=== PATIENT | male | born 1965 | race African-American/Black ===

== ENCOUNTER 2020-07-03 13:16 | Inpatient (IN) | payer MEDICARE, MEDICAID, SELFPAY ==
[2020-07-03] VITALS (11 sets, daily range): BP systolic 144–246; BP diastolic 77–140; PULSE 70–102; RESP 16–18; TEMP 36.7; O2SAT 95–99; BMI 30.8
--- NOTE | ~2020-07-03 | XR_ITS ---
EXAMINATION: PORTABLE CHEST 1 VIEW CLINICAL INFORMATION: edema . COMPARISON: 04/10/2016. TECHNIQUE: Portable frontal view of the chest was obtained. FINDINGS: The lungs are well expanded. No focal infiltrate, effusion, edema, or pneumothorax. Cardiac and mediastinal silhouettes are within normal limits for technique. No acute bony abnormality seen. XR/XR chest 1V IMPRESSION: No evidence of acute disease.
--- NOTE | ~2020-07-03 | CT_ITS ---
EXAMINATION: CT HEAD WITHOUT CONTRAST CLINICAL INFORMATION: Hypertensive urgency COMPARISON: None TECHNIQUE: Contiguous axial imaging was performed from the skull base to vertex without intravenous administration of contrast. This CT examination was performed using dose optimization techniques as appropriate, variously including the following: *Automated exposure control *Adjustment of mA and/or kV according to patient size (this includes techniques or standardized protocols for targeted exams where dose is matched to indication/reason for exam; i.e. extremities or head) *Use of iterative reconstruction technique DLP: 876 mGy-cm FINDINGS: There is no evidence of acute intracranial hemorrhage or territorial infarction. No abnormal mass effect or midline shift is seen. Winter to white matter differentiation is well preserved. No extra-axial fluid collections are identified. The ventricles are normal in size. There is no abnormal attenuation within the brain parenchyma. The osseous structures and soft tissues are normal. The mastoid air cells and visualized portions of the paranasal sinuses are well aerated. There are innumerable punctate subcutaneous high attenuation densities questionable for calcifications just deep to the skin. CT/CT head/brain wo con IMPRESSION: No acute intracranial pathology.
--- NOTE | ~2020-07-03 | US_ITS ---
EXAMINATION: DOPPLER VENOUS ULTRASOUND EXTREMITY, BILATERAL CLINICAL INFORMATION: Lower extremity edema bilaterally. COMPARISON: None. TECHNIQUE: Grayscale, Doppler and spectral analysis of each lower extremity was performed. FINDINGS: There is no evidence for a deep venous thrombosis within the visualized lower extremity veins. There is normal flow, compression and augmentation. ADDITIONAL FINDINGS: No Dominguez's cysts are identified. US/US venous duplex LE BI IMPRESSION: Unremarkable examination. Specifically, no evidence for DVT within either lower extremity.
[2020-07-03 14:51] LABS: MANUAL DIFF FLAG NO
[2020-07-03 14:52] LABS: Basophils Percent Auto 0.1 % (0-2); Eosinophils Absolute Auto 0.1 X10*3/uL (0.0-0.4); Eosinophils Percent Auto 0.7 % (0-4); Hematocrit 38.6 % (42-52); Hemoglobin 11.9 g/dl (14.0-18.0); Imm Gran Abs Auto 0.02 X10*3/uL (0.00-0.03); Imm Gran Pct Auto 0.3 % (0.0-0.4); Lymphocytes Absolute Auto 1.2 X10*3/uL (1.2-4.9); Lymphocytes Percent Auto 16.3 % (20-40); Mean Corpuscular HGB Conc 30.8 g/dl (31.0-36.0); Mean Corpuscular Volume 87.7 fL (80-98); Mean Platelet Volume 10.2 fL (9.4-12.4); Monocytes Absolute Auto 0.4 X10*3/uL (0.1-1.2); Monocytes Percent Auto 5.7 % (2-11); Neutrophils Absolute Auto 5.8 X10*3/uL (2.0-8.3); Neutrophils Percent Auto 76.9 % (45-73); Platelet Count 257 X10*3/uL (160-400); Red Cell Distribution Width 13.6 % (11.0-16.0); White Blood Count 7.5 X10*3/uL (4.8-10.8)
[2020-07-03 15:20] LABS: Anion Gap 13 (12-20); Blood Urea Nitrogen 19 mg/dL (9-16); Calcium 9.5 mg/dL (8.4-10.2); Carbon Dioxide 31 mmol/L (22-29); Chloride 98 mmol/L (96-108); Creatinine Clr Calc Pharmacy 80.5; Estimated Glomerular Filt Rate > 60; Potassium 4.5 mmol/L (3.3-5.1); Sodium 137 mmol/L (135-145)
[2020-07-03 15:26] LABS: Glucose Random 374 mg/dL (60-115)
--- NOTE | 2020-07-03 17:22 | ECG_ITS ---
Test Reason : LEG SWELLING Blood Pressure : / mmHG Vent. Rate : 085 BPM Atrial Rate : 085 BPM P-R Int : 136 ms QRS Dur : 098 ms QT Int : 364 ms P-R-T Axes : 025 084 083 degrees QTc Int : 433 ms Normal sinus rhythm Normal ECG When compared with ECG of 31-MAY-2018 20:26, No significant change was found Referred By: Sofi Amor Electronically Signed By:ANDREW GIRALDO
[2020-07-03] MEDS: Insulin Lispro 100 UNIT/ML 3 ML VIAL 10 UNIT SUBCUT (17:43)
--- NOTE | 2020-07-03 17:44 | ED_ITS ---
HPI - General Adult General Chief complaint: Extremity Problem Stated complaint: MULTI COMPLANTS Time Seen by Provider: 07/03/20 15:27 Source: patient Mode of arrival: ambulatory Limitations: language barrier History of Present Illness HPI narrative: 54-year-old male with past medical history of hypertension, type 2 diabetes insulin dependent, hyperlipidemia, alcohol dependence, heroin dependence, and cocaine dependence. He presents today because a bilateral lower extremity swelling, states that he has not been on his medications for at least 6 months and has not treated it his blood sugar since February. He is a vague historian, his daughter is at bedside and states that he is a daily drinker. He does admit to using cocaine and heroin, and reports drinking only 1 beer a day. Daughter states that on the way here she had to take the alcohol away from him because she did not want him to present drunk to the emergency department. Onset (ago): unknown Location: lower extremity Severity: moderate Quality: burning and aching Pain Consistency: constant Relieving factors: none Exacerbating factors: movement Associated symptoms: denies other symptoms Related Data Home Medications Medication Instructions Recorded Confirmed No Known Home Meds 07/03/20 07/03/20 Allergies Allergy/AdvReac Type Severity Reaction Status Date / Time No Known Allergies Allergy Unverified 07/03/20 23:00 Review of Systems Review of Systems: Constitutional: No Fever, No Chills ENT/Mouth: No sore throat, No Rhinorrhea Eyes: No Eye Pain, No Swelling, No Redness Cardiovascular: Positive bilateral lower extremity edema, No Chest Pain, No SOB Respiratory: No Cough, No Sputum Gastrointestinal: No Nausea, No Vomiting, No Diarrhea, No abdominal Pain Genitourinary: No Dysuria, No Hematuria Musculoskeletal: No joint pain, No Myalgias, No Joint Swelling Skin: No Skin Lesions, No rash Neuro: No Weakness, No Numbness, No Loss of Consciousness, No Dizziness, No Headache Psych: Positive alcohol, cocaine and heroin abuse, No Anxiety, No Depression, No SI/HI/AH/VH Heme/Lymph: No Bruising, No Bleeding,No Lymphadenopathy Endocrine: No Polyuria, No Polydipsia Yes all other systems are reviewed and are negative PMFSH Past Medical History Attestation statement: The following information was validated with the patient. Source: old records reviewed Social History Social History Alcohol intake: unknown Smoking Status: Unknown if ever smoked Use of substances other than those prescribed or required for medical reasons: Unknown Advance Directives: No Advance Directives Information Provided: Yes Physical Exam Vital Signs: Vital Signs: Last Vital Signs Temp 98.1 F 07/03/20 14:25 Pulse 87 07/04/20 01:00 Resp 18 07/04/20 01:00 BP 160/76 H 07/04/20 01:00 Pulse Ox 98 07/04/20 01:00 Body Mass Index 30.8 Appearance: Alert. Oriented X3. No acute distress. Eyes: Pupils equal, round and reactive to light. EOMI, sclera mildly icteric ENT: Pharynx normal. Moist mucous membranes, tongue midline, no tracheal deviation Neck: Normal inspection. Neck supple. CVS: Normal heart rate and rhythm. Pulses equal to all extremities Respiratory: No respiratory distress. Lung sounds clear to auscultation all lobes Abdomen: Soft and nontender. Ventral hernia noted Skin: Skin warm and dry. Normal skin color. Normal skin turgor. Extremities: +3 pitting edema to the midthigh, no wounds or lesions noted to the feet, moves all extremities against resistance, strength 5/5. Neuro: No motor deficit. No sensory deficit. Cranial nerves 2-12 intact. Course Course Course Narrative: 54-year-old male with alcohol dependence, cocaine and heroin dependence, hypertension, diabetes type 2 insulin-dependent has been noncompliant with his medications for approximately 6 months. Presents with bilateral lower extremity edema. Will rule out ACS, CHF. 6:00 p.m. patient given 40 mg of IV Lasix. 6:40 p.m. blood pressure elevated 246/140, blood pressure discussed with Dr. Franks, multiple concerns regarding ETOH withdrawal versus cocaine withdrawal versus medication noncompliance. Plan is for amlodipine 5 mg, and have an inch of nitropaste. 9:30 p.m. 2nd troponin pending. 10:30 p.m. patient noted diaphoretic, highly suspicious for EtOH withdrawal. DA S negative, ETOH less than 10 even the patient stated that he has heroin, cocaine and alcohol recently.. Phenobarb protocol. 11:00 p.m. discussion with hospitalist regarding plan of care to admit for EtOH withdrawal. Medical Decision Making Lab Data Result diagrams: 07/03/20 14:44 07/03/20 14:44 Labs: Lab Results 07/03/20 07/03/20 07/03/20 Range/Units 14:44 14:44 14:44 WBC 7.5 (4.8-10.8) X10*3/uL RBC 4.40 L (4.60-5.80) X10*6/uL Hgb 11.9 L (14.0-18.0) g/dl Hct 38.6 L (42-52) % MCV 87.7 (80-98) fL MCH 27.0 (27.0-33.0) pg MCHC 30.8 L (31.0-36.0) g/dl RDW 13.6 (11.0-16.0) % Plt Count 257 (160-400) X10*3/uL MPV 10.2 (9.4-12.4) fL Immature Gran % (Auto) 0.3 (0.0-0.4) % Neut % (Auto) 76.9 H (45-73) % Lymph % (Auto) 16.3 L (20-40) % [place] % (Auto) 5.7 (2-11) % Eos % (Auto) 0.7 (0-4) % Baso % (Auto) 0.1 (0-2) % Lymph # (Auto) 1.2 (1.2-4.9) X10*3/uL [place] # (Auto) 0.4 (0.1-1.2) X10*3/uL Eos # (Auto) 0.1 (0.0-0.4) X10*3/uL Baso # (Auto) 0.0 (0.0-0.2) X10*3/uL Abs Immat Gran (auto) 0.02 (0.00-0.03) X10*3/uL Absolute Neuts (auto) 5.8 (2.0-8.3) X10*3/uL Absolute Nucleated RBC 0.000 (0.0-0.012) X10*3/uL Nucleated RBC % (auto) 0.0 (0.0-0.2) /100WBC Hold Purple Top SEE NOTE PT (10.8-13.0) SEC INR (0.9-1.1) APTT (24.1-38.0) SEC D-Dimer Hold Blue Top Sodium 137 (135-145) mmol/L Potassium 4.5 (3.3-5.1) mmol/L Chloride 98 (96-108) mmol/L Carbon Dioxide 31 H (22-29) mmol/L Anion Gap 13 (12-20) BUN 19 H (9-16) mg/dL Creatinine 1.20 (0.5-1.4) mg/dL Estim Creat Clear Calc 80.5 Estimated GFR > 60 POC Glucose (60-115) mg/dL Random Glucose 374 H* (60-115) mg/dL Calcium 9.5 (8.4-10.2) mg/dL Magnesium (1.6-2.6) mg/dL Total Bilirubin (0.0-1.0) mg/dL Direct Bilirubin (0.0-0.5) mg/dL AST (5-37) U/L ALT (0-40) U/L Alkaline Phosphatase (39-117) U/L Troponin I High Sens (<3.5-35.0) ng/L B-Natriuretic Peptide (<100) pg/mL Total Protein (6.5-8.0) g/dL Albumin (3.5-5.0) g/dL Lipase (8-78) U/L Urine Color Urine Appearance Urine pH (5.0-8.0) Ur Specific [place] (1.005-1.025) Urine Protein (NEG-TRACE) MG/DL Urine Glucose (UA) (NEG) MG/DL Urine Ketones (NEG) MG/DL Urine Blood (NEG) Urine Nitrite (NEG) Ur Leukocyte Esterase (NEG) Urine RBC (0) /HPF Urine WBC (0-4) /HPF Ur Squamous Epith Cells /LPF Urine Bacteria /LPF Urine Opiates Screen (Not Detect) Ur Barbiturates Screen (Not Detect) Ur Phencyclidine Scrn (Not Detect) Ur Amphetamines Screen (Not Detect) U Benzodiazepines Scrn (Not Detect) Urine Cocaine Screen (Not Detect) U Marijuana (THC) Screen (Not Detect) Ethyl Alcohol mg/dL Coronavirus (PCR) (Negative) Influenza Type A (PCR) (Negative) Influenza Type B (PCR) (Negative) RSV RNA Qual (PCR) (Negative) 07/03/20 07/03/20 07/03/20 Range/Units 14:44 17:53 17:53 WBC (4.8-10.8) X10*3/uL RBC (4.60-5.80) X10*6/uL Hgb (14.0-18.0) g/dl Hct (42-52) % MCV (80-98) fL MCH (27.0-33.0) pg MCHC (31.0-36.0) g/dl RDW (11.0-16.0) % Plt Count (160-400) X10*3/uL MPV (9.4-12.4) fL Immature Gran % (Auto) (0.0-0.4) % Neut % (Auto) (45-73) % Lymph % (Auto) (20-40) % [place] % (Auto) (2-11) % Eos % (Auto) (0-4) % Baso % (Auto) (0-2) % Lymph # (Auto) (1.2-4.9) X10*3/uL [place] # (Auto) (0.1-1.2) X10*3/uL Eos # (Auto) (0.0-0.4) X10*3/uL Baso # (Auto) (0.0-0.2) X10*3/uL Abs Immat Gran (auto) (0.00-0.03) X10*3/uL Absolute Neuts (auto) (2.0-8.3) X10*3/uL Absolute Nucleated RBC (0.0-0.012) X10*3/uL Nucleated RBC % (auto) (0.0-0.2) /100WBC Hold Purple Top PT 10.4 L (10.8-13.0) SEC INR 0.9 (0.9-1.1) APTT 31.1 (24.1-38.0) SEC D-Dimer Cancelled Hold Blue Top SEE NOTE Sodium (135-145) mmol/L Potassium (3.3-5.1) mmol/L Chloride (96-108) mmol/L Carbon Dioxide (22-29) mmol/L Anion Gap (12-20) BUN (9-16) mg/dL Creatinine (0.5-1.4) mg/dL Estim Creat Clear Calc Estimated GFR POC Glucose (60-115) mg/dL Random Glucose (60-115) mg/dL Calcium (8.4-10.2) mg/dL Magnesium 1.9 (1.6-2.6) mg/dL Total Bilirubin 0.5 (0.0-1.0) mg/dL Direct Bilirubin 0.2 (0.0-0.5) mg/dL AST 41 H (5-37) U/L ALT 64 H (0-40) U/L Alkaline Phosphatase 111 (39-117) U/L Troponin I High Sens (<3.5-35.0) ng/L B-Natriuretic Peptide (<100) pg/mL Total Protein 7.5 (6.5-8.0) g/dL Albumin 4.3 (3.5-5.0) g/dL Lipase 33 (8-78) U/L Urine Color Urine Appearance Urine pH (5.0-8.0) Ur Specific [place] (1.005-1.025) Urine Protein (NEG-TRACE) MG/DL Urine Glucose (UA) (NEG) MG/DL Urine Ketones (NEG) MG/DL Urine Blood (NEG) Urine Nitrite (NEG) Ur Leukocyte Esterase (NEG) Urine RBC (0) /HPF Urine WBC (0-4) /HPF Ur Squamous Epith Cells /LPF Urine Bacteria /LPF Urine Opiates Screen (Not Detect) Ur Barbiturates Screen (Not Detect) Ur Phencyclidine Scrn (Not Detect) Ur Amphetamines Screen (Not Detect) U Benzodiazepines Scrn (Not Detect) Urine Cocaine Screen (Not Detect) U Marijuana (THC) Screen (Not Detect) Ethyl Alcohol mg/dL Coronavirus (PCR) (Negative) Influenza Type A (PCR) (Negative) Influenza Type B (PCR) (Negative) RSV RNA Qual (PCR) (Negative) 07/03/20 07/03/20 07/03/20 Range/Units 17:53 17:54 18:22 WBC (4.8-10.8) X10*3/uL RBC (4.60-5.80) X10*6/uL Hgb (14.0-18.0) g/dl Hct (42-52) % MCV (80-98) fL MCH (27.0-33.0) pg MCHC (31.0-36.0) g/dl RDW (11.0-16.0) % Plt Count (160-400) X10*3/uL MPV (9.4-12.4) fL Immature Gran % (Auto) (0.0-0.4) % Neut % (Auto) (45-73) % Lymph % (Auto) (20-40) % [place] % (Auto) (2-11) % Eos % (Auto) (0-4) % Baso % (Auto) (0-2) % Lymph # (Auto) (1.2-4.9) X10*3/uL [place] # (Auto) (0.1-1.2) X10*3/uL Eos # (Auto) (0.0-0.4) X10*3/uL Baso # (Auto) (0.0-0.2) X10*3/uL Abs Immat Gran (auto) (0.00-0.03) X10*3/uL Absolute Neuts (auto) (2.0-8.3) X10*3/uL Absolute Nucleated RBC (0.0-0.012) X10*3/uL Nucleated RBC % (auto) (0.0-0.2) /100WBC Hold Purple Top PT (10.8-13.0) SEC INR (0.9-1.1) APTT (24.1-38.0) SEC D-Dimer Hold Blue Top Sodium (135-145) mmol/L Potassium (3.3-5.1) mmol/L Chloride (96-108) mmol/L Carbon Dioxide (22-29) mmol/L Anion Gap (12-20) BUN (9-16) mg/dL Creatinine (0.5-1.4) mg/dL Estim Creat Clear Calc Estimated GFR POC Glucose (60-115) mg/dL Random Glucose (60-115) mg/dL Calcium (8.4-10.2) mg/dL Magnesium (1.6-2.6) mg/dL Total Bilirubin (0.0-1.0) mg/dL Direct Bilirubin (0.0-0.5) mg/dL AST (5-37) U/L ALT (0-40) U/L Alkaline Phosphatase (39-117) U/L Troponin I High Sens 31.9 (<3.5-35.0) ng/L B-Natriuretic Peptide < 10 (<100) pg/mL Total Protein (6.5-8.0) g/dL Albumin (3.5-5.0) g/dL Lipase (8-78) U/L Urine Color Urine Appearance Urine pH (5.0-8.0) Ur Specific [place] (1.005-1.025) Urine Protein (NEG-TRACE) MG/DL Urine Glucose (UA) (NEG) MG/DL Urine Ketones (NEG) MG/DL Urine Blood (NEG) Urine Nitrite (NEG) Ur Leukocyte Esterase (NEG) Urine RBC (0) /HPF Urine WBC (0-4) /HPF Ur Squamous Epith Cells /LPF Urine Bacteria /LPF Urine Opiates Screen (Not Detect) Ur Barbiturates Screen (Not Detect) Ur Phencyclidine Scrn (Not Detect) Ur Amphetamines Screen (Not Detect) U Benzodiazepines Scrn (Not Detect) Urine Cocaine Screen (Not Detect) U Marijuana (THC) Screen (Not Detect) Ethyl Alcohol < 10 mg/dL Coronavirus (PCR) NEGATIVE (Negative) Influenza Type A (PCR) NEGATIVE (Negative) Influenza Type B (PCR) NEGATIVE (Negative) RSV RNA Qual (PCR) NEGATIVE (Negative) 07/03/20 07/03/20 07/03/20 Range/Units 19:04 19:27 19:28 WBC (4.8-10.8) X10*3/uL RBC (4.60-5.80) X10*6/uL Hgb (14.0-18.0) g/dl Hct (42-52) % MCV (80-98) fL MCH (27.0-33.0) pg MCHC (31.0-36.0) g/dl RDW (11.0-16.0) % Plt Count (160-400) X10*3/uL MPV (9.4-12.4) fL Immature Gran % (Auto) (0.0-0.4) % Neut % (Auto) (45-73) % Lymph % (Auto) (20-40) % [place] % (Auto) (2-11) % Eos % (Auto) (0-4) % Baso % (Auto) (0-2) % Lymph # (Auto) (1.2-4.9) X10*3/uL [place] # (Auto) (0.1-1.2) X10*3/uL Eos # (Auto) (0.0-0.4) X10*3/uL Baso # (Auto) (0.0-0.2) X10*3/uL Abs Immat Gran (auto) (0.00-0.03) X10*3/uL Absolute Neuts (auto) (2.0-8.3) X10*3/uL Absolute Nucleated RBC (0.0-0.012) X10*3/uL Nucleated RBC % (auto) (0.0-0.2) /100WBC Hold Purple Top PT (10.8-13.0) SEC INR (0.9-1.1) APTT (24.1-38.0) SEC D-Dimer Hold Blue Top Sodium (135-145) mmol/L Potassium (3.3-5.1) mmol/L Chloride (96-108) mmol/L Carbon Dioxide (22-29) mmol/L Anion Gap (12-20) BUN (9-16) mg/dL Creatinine (0.5-1.4) mg/dL Estim Creat Clear Calc Estimated GFR POC Glucose 186 H (60-115) mg/dL Random Glucose (60-115) mg/dL Calcium (8.4-10.2) mg/dL Magnesium (1.6-2.6) mg/dL Total Bilirubin (0.0-1.0) mg/dL Direct Bilirubin (0.0-0.5) mg/dL AST (5-37) U/L ALT (0-40) U/L Alkaline Phosphatase (39-117) U/L Troponin I High Sens (<3.5-35.0) ng/L B-Natriuretic Peptide (<100) pg/mL Total Protein (6.5-8.0) g/dL Albumin (3.5-5.0) g/dL Lipase (8-78) U/L Urine Color COLORLESS Urine Appearance CLEAR Urine pH 7.5 (5.0-8.0) Ur Specific [place] 1.015 (1.005-1.025) Urine Protein NEG (NEG-TRACE) MG/DL Urine Glucose (UA) NEG (NEG) MG/DL Urine Ketones NEG (NEG) MG/DL Urine Blood TRACE (NEG) Urine Nitrite NEG (NEG) Ur Leukocyte Esterase NEG (NEG) Urine RBC 0-2 (0) /HPF Urine WBC 0 (0-4) /HPF Ur Squamous Epith Cells NONE /LPF Urine Bacteria NONE /LPF Urine Opiates Screen Not Detected (Not Detect) Ur Barbiturates Screen Not Detected (Not Detect) Ur Phencyclidine Scrn Not Detected (Not Detect) Ur Amphetamines Screen Not Detected (Not Detect) U Benzodiazepines Scrn Not Detected (Not Detect) Urine Cocaine Screen Not Detected (Not Detect) U Marijuana (THC) Screen Not Detected (Not Detect) Ethyl Alcohol mg/dL Coronavirus (PCR) (Negative) Influenza Type A (PCR) (Negative) Influenza Type B (PCR) (Negative) RSV RNA Qual (PCR) (Negative) 07/03/20 07/04/20 Range/Units 21:36 00:53 WBC (4.8-10.8) X10*3/uL RBC (4.60-5.80) X10*6/uL Hgb (14.0-18.0) g/dl Hct (42-52) % MCV (80-98) fL MCH (27.0-33.0) pg MCHC (31.0-36.0) g/dl RDW (11.0-16.0) % Plt Count (160-400) X10*3/uL MPV (9.4-12.4) fL Immature Gran % (Auto) (0.0-0.4) % Neut % (Auto) (45-73) % Lymph % (Auto) (20-40) % [place] % (Auto) (2-11) % Eos % (Auto) (0-4) % Baso % (Auto) (0-2) % Lymph # (Auto) (1.2-4.9) X10*3/uL [place] # (Auto) (0.1-1.2) X10*3/uL Eos # (Auto) (0.0-0.4) X10*3/uL Baso # (Auto) (0.0-0.2) X10*3/uL Abs Immat Gran (auto) (0.00-0.03) X10*3/uL Absolute Neuts (auto) (2.0-8.3) X10*3/uL Absolute Nucleated RBC (0.0-0.012) X10*3/uL Nucleated RBC % (auto) (0.0-0.2) /100WBC Hold Purple Top PT (10.8-13.0) SEC INR (0.9-1.1) APTT (24.1-38.0) SEC D-Dimer Hold Blue Top Sodium (135-145) mmol/L Potassium (3.3-5.1) mmol/L Chloride (96-108) mmol/L Carbon Dioxide (22-29) mmol/L Anion Gap (12-20) BUN (9-16) mg/dL Creatinine (0.5-1.4) mg/dL Estim Creat Clear Calc Estimated GFR POC Glucose 222 H (60-115) mg/dL Random Glucose (60-115) mg/dL Calcium (8.4-10.2) mg/dL Magnesium (1.6-2.6) mg/dL Total Bilirubin (0.0-1.0) mg/dL Direct Bilirubin (0.0-0.5) mg/dL AST (5-37) U/L ALT (0-40) U/L Alkaline Phosphatase (39-117) U/L Troponin I High Sens 33.6 (<3.5-35.0) ng/L B-Natriuretic Peptide (<100) pg/mL Total Protein (6.5-8.0) g/dL Albumin (3.5-5.0) g/dL Lipase (8-78) U/L Urine Color Urine Appearance Urine pH (5.0-8.0) Ur Specific [place] (1.005-1.025) Urine Protein (NEG-TRACE) MG/DL Urine Glucose (UA) (NEG) MG/DL Urine Ketones (NEG) MG/DL Urine Blood (NEG) Urine Nitrite (NEG) Ur Leukocyte Esterase (NEG) Urine RBC (0) /HPF Urine WBC (0-4) /HPF Ur Squamous Epith Cells /LPF Urine Bacteria /LPF Urine Opiates Screen (Not Detect) Ur Barbiturates Screen (Not Detect) Ur Phencyclidine Scrn (Not Detect) Ur Amphetamines Screen (Not Detect) U Benzodiazepines Scrn (Not Detect) Urine Cocaine Screen (Not Detect) U Marijuana (THC) Screen (Not Detect) Ethyl Alcohol mg/dL Coronavirus (PCR) (Negative) Influenza Type A (PCR) (Negative) Influenza Type B (PCR) (Negative) RSV RNA Qual (PCR) (Negative) Critical Care Time Critical Care Time Critical Care Time: Yes Total Critical Care Time: 65 Attestation: I have personally provided critical care time exclusive of time spent on separately billable procedures. Time includes review of laboratory data, radiology results, discussion with consultants, and monitoring for potential decompensation. Interventions were performed as documented. Discharge Plan Discharge Clinical Impression: Elevated troponin, Diabetes mellitus type 2, insulin dependent, History of medication noncompliance Alcohol withdrawal Qualifiers: Complication of substance-induced condition: uncomplicated Qualified Code(s): F10.230 - Alcohol dependence with withdrawal, uncomplicated Hypertension Qualifiers: Hypertension type: essential hypertension Qualified Code(s): I10 - Essential (primary) hypertension Patient Disposition: Admitted As Inpatient
[2020-07-03] MEDS: Furosemide 40 MG/4 ML VIAL IVPUSH (18:06)
[2020-07-03 18:12] LABS: INTERNATIONAL NORM RATIO 0.9 (0.9-1.1); Prothrombin Time 10.4 SEC (10.8-13.0)
[2020-07-03 18:15] LABS: Partial Thromboplastin Time 31.1 SEC (24.1-38.0)
[2020-07-03 18:33] LABS: Ethanol < 10 mg/dL
[2020-07-03 18:39] LABS: B Type Natriuretic Peptide < 10 pg/mL (<100); Troponin-I High Sensitivity 31.9 ng/L (<3.5-35.0)
[2020-07-03 19:03] LABS: Alanine Aminotransferase 64 U/L (0-40); Albumin Level 4.3 g/dL (3.5-5.0); Alkaline Phosphatase 111 U/L (39-117); Aspartate Amino Transferase 41 U/L (5-37); Bilirubin Direct 0.2 mg/dL (0.0-0.5); Bilirubin Total 0.5 mg/dL (0.0-1.0); Lipase 33 U/L (8-78); Magnesium 1.9 mg/dL (1.6-2.6); Total Protein 7.5 g/dL (6.5-8.0)
[2020-07-03 19:08] LABS: Glucose, Whole Blood 186 mg/dL (60-115)
[2020-07-03 19:13] LABS: Influenza A PCR NEGATIVE (Negative); Influenza B PCR NEGATIVE (Negative); Resp Syncy Virus RNA Qual PCR NEGATIVE (Negative); SARS COV2 PCR INHOUSE NEGATIVE (Negative)
[2020-07-03] MEDS: Nitroglycerin 2 % Oint 1 GM Packet 0.5 INCH TRANSDERMA (19:15)
[2020-07-03] MEDS: amLODIPine Besylate 5 MG TABLET PO (19:17)
[2020-07-03 19:38] LABS: Glucose Urine UA NEG (NEG); Leukocyte Esterase Urine NEG (NEG); Nitrite Urine NEG (NEG); PH 7.5 (5.0-8.0); Specific Gravity - Urine 1.015 (1.005-1.025); Urine Blood TRACE (NEG); Urine Ketones NEG (NEG); Urine Protein NEG (NEG-TRACE)
[2020-07-03 19:40] LABS: Appearance Urine CLEAR; Color Urine COLORLESS
[2020-07-03 19:47] LABS: RBC Urine 0-2 /HPF (0); WBC Urine 0 /HPF (0-4)
[2020-07-03 20:00] LABS: Amphetamine Screen Urine Not Detected (Not Detect); Barbiturates, Urine Not Detected (Not Detect); Benzodiazepines Screen Urine Not Detected (Not Detect); Cannabinoid Screen Urine Not Detected (Not Detect); Cocaine Screen Urine Not Detected (Not Detect); Opiate Screen Urine Not Detected (Not Detect); Phencyclidine Screen Urine Not Detected (Not Detect)
[2020-07-03 22:12] LABS: Troponin-I High Sensitivity 33.6 ng/L (<3.5-35.0)
[2020-07-03] MEDS: PHENobarbitaL sodium 130 MG/ML VIAL 292 MG IM (23:33)
--- NOTE | 2020-07-03 23:49 | PC.NURSE ---
Daughter Bibiana Rosales, phone [phone] per Patient can speak to the daughter if she calls or any changes. Daughter is here at this time at bedside.
[2020-07-04] VITALS (18 sets, daily range): BP systolic 145–225; BP diastolic 72–115; PULSE 77–125; RESP 12–20; TEMP 36.3–37.6; O2SAT 95–100
--- NOTE | 2020-07-04 | ECG_ITS ---
Test Reason : DIAPHOERESIS Blood Pressure : / mmHG Vent. Rate : 090 BPM Atrial Rate : 090 BPM P-R Int : 148 ms QRS Dur : 102 ms QT Int : 392 ms P-R-T Axes : 077 087 090 degrees QTc Int : 479 ms Normal sinus rhythm Minimal voltage criteria for LVH, may be normal variant Borderline ECG When compared with ECG of 03-JUL-2020 17:47, QT has lengthened Referred By: Sofi Amor Electronically Signed By:ANDREW GIRALDO
[2020-07-04 00:57] LABS: Glucose, Whole Blood 222 mg/dL (60-115)
--- NOTE | 2020-07-04 01:09 | PC.NURSE ---
tech came to tell this RN that the patient was diaphoretic, Admitting MD called and wants an EKG and a bedside glucose test. Patient is A+Ox4, and denies any complaints.
--- NOTE | 2020-07-04 01:12 | PC.NURSE ---
language interpreter at bedside- to this RN patient denies drinking alcohol daily, he says a few times a week, and uses heroin daily, last use was yesterday.
--- NOTE | 2020-07-04 02:04 | P.HPHOSP_ITS ---
History of Present Illness Date of Service: 07/04/20 Chief Complaint: Bilateral lower extremity swelling 54-year-old male with a past medical history of hypertension, hyperlipidemia, diabetes-not taking any medications/noncompliant; history of alcohol abuse, opiate abuse-takes heroin on a daily basis presented to the hospital with a chief complaint of bilateral lower extremity swelling. Also complained of chest discomfort, denies any associated nausea vomiting lightheadedness dizziness; Patient denies any chest pain or palpitations at the time of my interview. Denies any cough. Spoke to the patient's family at bedside. Patient denies any GI or symptoms. Reportedly patient also uses cocaine intermittently. ER course: For ER team patient noted to have 3+ pitting edema on the bilateral lower extremity; EKG nonischemic; troponin negative. Patient was given phenobarb loading dose given concerns for possible alcohol withdrawal.-patient's last alcohol drink was about 2 days ago. Patient has last heroin used was yesterday. [facility] Medical History (Updated 07/14/20 @ 00:01 by Vel Caraballo) Essential hypertension Type 2 diabetes mellitus with unspecified complications Social History Household Members: Family Housing: [facility] Alcohol intake: unknown Smoking Status: Never smoker Substance Use Type: Heroin service: No Current occupational status: unemployed Meds Allergies Allergy/AdvReac Type Severity Reaction Status Date / Time No Known Allergies Allergy Unverified 07/03/20 23:00 Active Medications: Current Medications Generic Name Dose Route Start Last Admin Trade Name Freq PRN Reason Stop Dose Admin Enoxaparin Sodium 40 mg 07/04/20 01:00 Enoxaparin Sodium 40 Mg/0.4 Ml Syringe SUBCUT 2200 [facility] Famotidine 20 mg 07/04/20 09:00 Famotidine 20 Mg Tablet PO BID ARNOLD Folic Acid 1 mg 07/04/20 09:00 Folic Acid 1 Mg Tablet PO 07/07/20 08:59 DAILY ARNOLD Furosemide 20 mg 07/04/20 09:00 Furosemide 20 Mg/2 Ml Vial IVPUSH DAILY [facility] Protocol Insulin Human Lispro 0 unit 07/04/20 07:30 Insulin Lispro 100 Unit/Ml 3 Ml Vial SUBCUT QIDACHS [facility] Protocol Medication 1 each 07/04/20 09:00 No Benzodiazepines MISCELLANE DAILY [facility] Protocol Metoprolol Tartrate 25 mg 07/04/20 09:00 Metoprolol Tartrate 25 Mg Tablet PO BID [facility] Protocol Multivitamins 1 tab 07/04/20 09:00 B-Complex With Vitamin C Tablet PO DAILY [facility] Nicotine 21 mg 07/04/20 09:00 Nicotine 21 Mg Patch.Td24 TRANSDERMA DAILY [facility] Phenobarbital 45 mg 07/04/20 21:00 Phenobarbital 15 Mg Tablet PO 07/06/20 09:01 BID [facility] Protocol Phenobarbital 15 mg 07/06/20 21:00 Phenobarbital 15 Mg Tablet PO 07/08/20 09:01 BID [facility] Protocol Phenobarbital 15 mg 07/09/20 09:00 Phenobarbital 15 Mg Tablet PO 07/10/20 09:01 DAILY [facility] Protocol Phenobarbital Sodium 219 mg 07/04/20 02:00 Phenobarbital Sodium 130 Mg/Ml Vial IM 07/04/20 05:01 Q3H [facility] Protocol Sodium Chloride 3 ml 07/04/20 08:00 0.9 % Sodium Chloride Flush 3 Ml Syringe IVFLUSH QSHIFT [facility] Thiamine HCl 100 mg 07/04/20 09:00 Thiamine Hcl 100 Mg Tablet PO 07/07/20 08:59 DAILY [facility] Physical Exam Vital Signs and Narrative: Vital Signs: Last Vital Signs Temp 98.1 F 07/03/20 14:25 Pulse 87 07/04/20 01:00 Resp 18 07/04/20 01:00 BP 160/76 H 07/04/20 01:00 Pulse Ox 98 07/04/20 01:00 Body Mass Index 30.8 Gen: Appears be in no acute distress; breathing comfortably; diaphoretic HEENT: NCAT, Moist mucosa. Pulmonary: Slightly diminished breath sounds CVS: Normal S1-S2 Abdomen: BS+, Soft, Nontender Extremities: Warm well perfused; 3+ pitting edema Neuro: Alert and awake. Results Labs CBC and Chem 7: 07/04/20 06:59 07/04/20 06:59 Labs: Laboratory Results - last 24 hr 07/03/20 07/03/20 07/03/20 14:44 14:44 14:44 MCV 87.7 MCH 27.0 MCHC 30.8 L RDW 13.6 Plt Count 257 MPV 10.2 Immature Gran % (Auto) 0.3 Neut % (Auto) 76.9 H Lymph % (Auto) 16.3 L [place] % (Auto) 5.7 Eos % (Auto) 0.7 Baso % (Auto) 0.1 Lymph # (Auto) 1.2 [place] # (Auto) 0.4 Eos # (Auto) 0.1 Baso # (Auto) 0.0 Abs Immat Gran (auto) 0.02 Absolute Neuts (auto) 5.8 Absolute Nucleated RBC 0.000 Nucleated RBC % (auto) 0.0 Hold Purple Top SEE NOTE PT INR APTT D-Dimer Hold Blue Top Anion Gap 13 Estim Creat Clear Calc 80.5 Estimated GFR > 60 POC Glucose Random Glucose 374 H* Calcium 9.5 Magnesium Total Bilirubin Direct Bilirubin AST ALT Alkaline Phosphatase Troponin I High Sens B-Natriuretic Peptide Total Protein Albumin Lipase Urine Color Urine Appearance Urine pH Ur Specific [place] Urine Protein Urine Glucose (UA) Urine Ketones Urine Blood Urine Nitrite Ur Leukocyte Esterase Urine RBC Urine WBC Ur Squamous Epith Cells Urine Bacteria Urine Opiates Screen Ur Barbiturates Screen Ur Phencyclidine Scrn Ur Amphetamines Screen U Benzodiazepines Scrn Urine Cocaine Screen U Marijuana (THC) Screen Ethyl Alcohol Coronavirus (PCR) Influenza Type A (PCR) Influenza Type B (PCR) RSV RNA Qual (PCR) 07/03/20 07/03/20 07/03/20 14:44 17:53 17:53 MCV MCH MCHC RDW Plt Count MPV Immature Gran % (Auto) Neut % (Auto) Lymph % (Auto) [place] % (Auto) Eos % (Auto) Baso % (Auto) Lymph # (Auto) [place] # (Auto) Eos # (Auto) Baso # (Auto) Abs Immat Gran (auto) Absolute Neuts (auto) Absolute Nucleated RBC Nucleated RBC % (auto) Hold Purple Top PT 10.4 L INR 0.9 APTT 31.1 D-Dimer Cancelled Hold Blue Top SEE NOTE Anion Gap Estim Creat Clear Calc Estimated GFR POC Glucose Random Glucose Calcium Magnesium 1.9 Total Bilirubin 0.5 Direct Bilirubin 0.2 AST 41 H ALT 64 H Alkaline Phosphatase 111 Troponin I High Sens B-Natriuretic Peptide Total Protein 7.5 Albumin 4.3 Lipase 33 Urine Color Urine Appearance Urine pH Ur Specific [place] Urine Protein Urine Glucose (UA) Urine Ketones Urine Blood Urine Nitrite Ur Leukocyte Esterase Urine RBC Urine WBC Ur Squamous Epith Cells Urine Bacteria Urine Opiates Screen Ur Barbiturates Screen Ur Phencyclidine Scrn Ur Amphetamines Screen U Benzodiazepines Scrn Urine Cocaine Screen U Marijuana (THC) Screen Ethyl Alcohol Coronavirus (PCR) Influenza Type A (PCR) Influenza Type B (PCR) RSV RNA Qual (PCR) 07/03/20 07/03/20 07/03/20 17:53 17:54 18:22 MCV MCH MCHC RDW Plt Count MPV Immature Gran % (Auto) Neut % (Auto) Lymph % (Auto) [place] % (Auto) Eos % (Auto) Baso % (Auto) Lymph # (Auto) [place] # (Auto) Eos # (Auto) Baso # (Auto) Abs Immat Gran (auto) Absolute Neuts (auto) Absolute Nucleated RBC Nucleated RBC % (auto) Hold Purple Top PT INR APTT D-Dimer Hold Blue Top Anion Gap Estim Creat Clear Calc Estimated GFR POC Glucose Random Glucose Calcium Magnesium Total Bilirubin Direct Bilirubin AST ALT Alkaline Phosphatase Troponin I High Sens 31.9 B-Natriuretic Peptide < 10 Total Protein Albumin Lipase Urine Color Urine Appearance Urine pH Ur Specific [place] Urine Protein Urine Glucose (UA) Urine Ketones Urine Blood Urine Nitrite Ur Leukocyte Esterase Urine RBC Urine WBC Ur Squamous Epith Cells Urine Bacteria Urine Opiates Screen Ur Barbiturates Screen Ur Phencyclidine Scrn Ur Amphetamines Screen U Benzodiazepines Scrn Urine Cocaine Screen U Marijuana (THC) Screen Ethyl Alcohol < 10 Coronavirus (PCR) NEGATIVE Influenza Type A (PCR) NEGATIVE Influenza Type B (PCR) NEGATIVE RSV RNA Qual (PCR) NEGATIVE 07/03/20 07/03/20 07/03/20 19:04 19:27 19:28 MCV MCH MCHC RDW Plt Count MPV Immature Gran % (Auto) Neut % (Auto) Lymph % (Auto) [place] % (Auto) Eos % (Auto) Baso % (Auto) Lymph # (Auto) [place] # (Auto) Eos # (Auto) Baso # (Auto) Abs Immat Gran (auto) Absolute Neuts (auto) Absolute Nucleated RBC Nucleated RBC % (auto) Hold Purple Top PT INR APTT D-Dimer Hold Blue Top Anion Gap Estim Creat Clear Calc Estimated GFR POC Glucose 186 H Random Glucose Calcium Magnesium Total Bilirubin Direct Bilirubin AST ALT Alkaline Phosphatase Troponin I High Sens B-Natriuretic Peptide Total Protein Albumin Lipase Urine Color COLORLESS Urine Appearance CLEAR Urine pH 7.5 Ur Specific [place] 1.015 Urine Protein NEG Urine Glucose (UA) NEG Urine Ketones NEG Urine Blood TRACE Urine Nitrite NEG Ur Leukocyte Esterase NEG Urine RBC 0-2 Urine WBC 0 Ur Squamous Epith Cells NONE Urine Bacteria NONE Urine Opiates Screen Not Detected Ur Barbiturates Screen Not Detected Ur Phencyclidine Scrn Not Detected Ur Amphetamines Screen Not Detected U Benzodiazepines Scrn Not Detected Urine Cocaine Screen Not Detected U Marijuana (THC) Screen Not Detected Ethyl Alcohol Coronavirus (PCR) Influenza Type A (PCR) Influenza Type B (PCR) RSV RNA Qual (PCR) 07/03/20 07/04/20 21:36 00:53 MCV MCH MCHC RDW Plt Count MPV Immature Gran % (Auto) Neut % (Auto) Lymph % (Auto) [place] % (Auto) Eos % (Auto) Baso % (Auto) Lymph # (Auto) [place] # (Auto) Eos # (Auto) Baso # (Auto) Abs Immat Gran (auto) Absolute Neuts (auto) Absolute Nucleated RBC Nucleated RBC % (auto) Hold Purple Top PT INR APTT D-Dimer Hold Blue Top Anion Gap Estim Creat Clear Calc Estimated GFR POC Glucose 222 H Random Glucose Calcium Magnesium Total Bilirubin Direct Bilirubin AST ALT Alkaline Phosphatase Troponin I High Sens 33.6 B-Natriuretic Peptide Total Protein Albumin Lipase Urine Color Urine Appearance Urine pH Ur Specific [place] Urine Protein Urine Glucose (UA) Urine Ketones Urine Blood Urine Nitrite Ur Leukocyte Esterase Urine RBC Urine WBC Ur Squamous Epith Cells Urine Bacteria Urine Opiates Screen Ur Barbiturates Screen Ur Phencyclidine Scrn Ur Amphetamines Screen U Benzodiazepines Scrn Urine Cocaine Screen U Marijuana (THC) Screen Ethyl Alcohol Coronavirus (PCR) Influenza Type A (PCR) Influenza Type B (PCR) RSV RNA Qual (PCR) Imaging Radiologist's Impressions: Impressions Chest X-Ray 07/03/20 17:22 IMPRESSION: No evidence of acute disease. Assessment and Plan (1) Alcohol withdrawal: Qualifiers: Complication of substance-induced condition: uncomplicated Qualified Code(s): F10.230 - Alcohol dependence with withdrawal, uncomplicated Status: Acute 54-year-old male with a past medical history of hypertension, hyperlipidemia, diabetes-noncompliant with medications, alcohol abuse/opiate abuse presented to the hospital with a chief complaint of bilateral lower extremity swelling/chest discomfort. Chest discomfort: Atypical in nature. Troponin 35 followed by 33. EKG nonischemic. Cardiology consult. Echocardiogram. Bilateral lower extremity edema: Patient is proBNP within normal limits. Noted pitting edema. Echocardiogram as mentioned. Patient received Lasix in the ER. Will also obtain bilateral venous duplex to rule out a DVT. Alcohol abuse: Will monitor the patient on CIWA protocol with Ativan. Continue thiamine folate and multivitamins. Opiate dependence: Patient was diaphoretic in the ER. Given a dose of me thadone. Will consult Psychiatry for further management of opiate withdrawal. Apneic Episodes: Suppl oxygen; Likely undiagnosed BREE: recommended out pt sleep studies; Pulm consult Hypertensive urgency: Patient denies any headaches at the [place]. CT head pending. Will continue labetalol p.r.n.. Hypertension: Will start the patient on metoprolol 25 mg twice daily. Diabetes: Insulin sliding scale. Patient was mildly hyperglycemic on presentation. Will obtain hemoglobin A1c. Hyperlipidemia: Will obtain lipid profile. DVT prophylaxis: Subcu heparin Code status: Full code
[2020-07-04] MEDS: methADONE HCl 5 MG TABLET PO (02:13)
[2020-07-04] MEDS: Enoxaparin Sodium 40 MG/0.4 ML SYRINGE SUBCUT ×2 (02:13→22:54)
[2020-07-04 02:24] LABS: D Dimer < 200 NG/ML
--- NOTE | 2020-07-04 02:34 | PC.NURSE ---
US tech is at bedside. Patient was medicated with methadone per order, BP 221/105, HR77 Dr Lancaster aware
--- NOTE | 2020-07-04 03:25 | PC.NURSE ---
patient continues to have 10-20second episodes of apnea followed by loud snoring. Admitting MD aware. Patient was placed on 2L via NC and to keep the HOB at 45degrees.
--- NOTE | 2020-07-04 03:26 | PC.NURSE ---
pocket knife was in the patients pocket, given to security, with the patient permission.
[2020-07-04] MEDS: Labetalol HCL 100 MG/20 ML VIAL 10 MG IVPUSH ×2 (06:30→23:26)
[2020-07-04 07:16] LABS: MANUAL DIFF FLAG NO
[2020-07-04 07:26] LABS: Basophils Percent Auto 0.3 % (0-2); Eosinophils Percent Auto 0.6 % (0-4); Hemoglobin 13.3 g/dl (14.0-18.0); Imm Gran Abs Auto 0.01 X10*3/uL (0.00-0.03); Imm Gran Pct Auto 0.2 % (0.0-0.4); Lymphocytes Absolute Auto 1.5 X10*3/uL (1.2-4.9); Lymphocytes Percent Auto 23.9 % (20-40); Mean Corpuscular HGB Conc 30.9 g/dl (31.0-36.0); Mean Corpuscular Hemoglobin 26.7 pg (27.0-33.0); Mean Corpuscular Volume 86.3 fL (80-98); Mean Platelet Volume 10.2 fL (9.4-12.4); Monocytes Absolute Auto 0.5 X10*3/uL (0.1-1.2); Monocytes Percent Auto 7.9 % (2-11); Neutrophils Absolute Auto 4.2 X10*3/uL (2.0-8.3); Neutrophils Percent Auto 67.1 % (45-73); Platelet Count 299 X10*3/uL (160-400); Red Blood Count 4.98 X10*6/uL (4.60-5.80); Red Cell Distribution Width 13.6 % (11.0-16.0); White Blood Count 6.2 X10*3/uL (4.8-10.8)
[2020-07-04 07:40] LABS: Cholesterol 212 mg/dL; HDL Cholesterol 60 mg/dL; LDL Cholesterol Calculated 126 mg/dl; Triglycerides 130 mg/dL
[2020-07-04 07:42] LABS: Estimated Average Glucose 298 mg/dL
[2020-07-04 07:45] LABS: Anion Gap 13 (12-20); Blood Urea Nitrogen 15 mg/dL (9-16); Calcium 9.4 mg/dL (8.4-10.2); Carbon Dioxide 35 mmol/L (22-29); Chloride 97 mmol/L (96-108); Creatinine Clr Calc Pharmacy 87.8; Estimated Glomerular Filt Rate > 60; Glucose Random 222 mg/dL (60-115); Potassium 4.1 mmol/L (3.3-5.1); Sodium 141 mmol/L (135-145)
--- NOTE | 2020-07-04 10:02 | MHC.RECOVRN ---
54 year old Amharic speaking male presented to [facility] on 07/03 due to Bilateral lower extremity swelling, painful to walk. ?per family pt not taking his medications for past few months. ?Family also states pt has drinking problem per quality assurance clerk. Pt subsequently admitted for alcohol withdrawal. Other issues to be addressed include chest discomfort, bilateral lower extremity edema, OUD, hypertensive urgency, diabetes, hyperlipidemia, and apneic episodes. Pt currently being held in?ED overflow. T/w briefly met with pt in ED 14 to address withdrawal concerns. Pt originally put on phenobarb protocol by ED provider, however, was switched to CIWA with Ativan by admitting physician. Pt had received loading dose of 292 mg IM phenobarb on 07/03 at 2330 and has not received Ativan. Pt had been diaphoretic and was given 5 mg methadone at 0213.? Pt is not currently experiencing alcohol or opiate withdrawal symptoms and appears to be sleeping off an on, resting comfortably. Pt inquired about receiving Suboxone, t/w educated pt regarding appropriate time to initiate. Pt understands. Pt reports using heroin, 2 bags IN daily. Pt has been prescribed Suboxone in the past through [facility], pt states last script a few months ago. Per [facility], last Suboxone script was filled in Oct 2018.? Pt encouraged to notify RN if withdrawal symptoms occur, pt agreeable. Case discussed with Olga Killian APRN. Will continue to follow.?
[2020-07-04] MEDS: Metoprolol Tartrate 25 MG TABLET PO ×2 (10:22→22:54)
[2020-07-04] MEDS: Folic Acid 1 MG TABLET PO (10:23)
[2020-07-04] MEDS: Thiamine HCL 100 MG TABLET PO (10:23)
[2020-07-04] MEDS: 0.9 % Sodium Chloride Flush 3 ML SYRINGE IVFLUSH ×3 (10:23→22:55)
[2020-07-04] MEDS: Furosemide 20 MG/2 ML VIAL IVPUSH (10:23)
[2020-07-04] MEDS: Insulin Lispro 100 UNIT/ML 3 ML VIAL SUBCUT ×3 (10:23→22:53)
[2020-07-04] MEDS: Famotidine 20 MG TABLET PO ×2 (10:23→22:54)
[2020-07-04] MEDS: Nicotine 21 MG PATCH.TD24 TRANSDERMA (10:25)
--- NOTE | 2020-07-04 10:40 | MHC.RECOVSUP ---
? Reason for consultContinuity of care: o Current location: ED 14 o Identified substance use concern: Heroin - Overdose - Withdrawal - Seeking ATS (detox) - Support ? Intervention: o MAT started or to be started o Community resources provided o o Referral to [facility] o Patient awaiting crisis evaluation o Patient to follow up with HF after discharge ? Additional information: Pt.currently on Methadone, pt states he wants to go on suboxin. plan is to wait til he's in withdrawel again to get on suboxin. Nurse Kovacs notified.
--- NOTE | 2020-07-04 12:05 | HO.PM.IMPN ---
Subjective Subjective Date of Service: 07/04/20 Interval History: Seen in f/u for chest pain, leg edama and alcohol use. Patient is better, with no chest pain at this time. Review of Systems Gen: no fever Resp: no sob, no cough CV: no chest, no QUINTERO, no leg edema GI: No n/v, no abd pain Neuro: No confusion Physical Exam Vital Signs: Vital Signs: Last Vital Signs Temp 99.6 F 07/04/20 07:05 Pulse 82 07/04/20 10:22 Resp 20 07/04/20 08:29 BP 160/88 H 07/04/20 10:22 Pulse Ox 99 07/04/20 08:29 Body Mass Index 30.8 General: AO X 3, no acute distress Resp: CTA bilateral CVS: S1,S2,RRR, 1 + leg edema GI: +BS, NT, no distention Skin: No rash Neuro: motor grossly intact Psych: appropriate affect Objective Data Current Medications Generic Name Dose Route Start Last Admin Trade Name Freq PRN Reason Stop Dose Admin Enoxaparin Sodium 40 mg 07/04/20 01:00 07/04/20 02:13 Enoxaparin Sodium 40 Mg/0.4 Ml Syringe SUBCUT 40 mg 2200 ARNOLD Administration Famotidine 20 mg 07/04/20 09:00 07/04/20 10:23 Famotidine 20 Mg Tablet PO 20 mg BID ARNOLD Administration Folic Acid 1 mg 07/04/20 09:00 07/04/20 10:23 Folic Acid 1 Mg Tablet PO 07/07/20 08:59 1 mg DAILY ARNOLD Administration Furosemide 20 mg 07/04/20 09:00 07/04/20 10:23 Furosemide 20 Mg/2 Ml Vial IVPUSH 20 mg DAILY ARNOLD Administration Protocol Insulin Human Lispro 0 unit 07/04/20 07:30 07/04/20 10:23 Insulin Lispro 100 Unit/Ml 3 Ml Vial SUBCUT 4 unit QIDACHS ARNOLD Administration Protocol Labetalol HCl 10 mg 07/04/20 02:34 07/04/20 06:30 Labetalol Hcl 100 Mg/20 Ml Vial IVPUSH 10 mg Q4H PRN Administration BP>180/90 Lorazepam 1 mg 07/04/20 02:06 Lorazepam 1 Mg Tablet PO 07/08/20 02:05 Q4H PRN Breakthrough alcohol withdrawa Medication 1 each 07/04/20 09:00 No Benzodiazepines MISCELLANE DAILY ARNOLD Protocol Metoprolol Tartrate 25 mg 07/04/20 09:00 07/04/20 10:22 Metoprolol Tartrate 25 Mg Tablet PO 25 mg BID ARNOLD Administration Protocol Multivitamins 1 tab 07/04/20 09:00 07/04/20 10:23 B-Complex With Vitamin C Tablet PO 1 tab DAILY ARNOLD Administration Nicotine 21 mg 07/04/20 09:00 07/04/20 10:25 Nicotine 21 Mg Patch.Td24 TRANSDERMA 21 mg DAILY ARNOLD Administration Sodium Chloride 3 ml 07/04/20 08:00 07/04/20 10:23 0.9 % Sodium Chloride Flush 3 Ml Syringe IVFLUSH 3 ml QSHIFT ARNOLD Administration Thiamine HCl 100 mg 07/04/20 09:00 07/04/20 10:23 Thiamine Hcl 100 Mg Tablet PO 07/07/20 08:59 100 mg DAILY ARNOLD Administration Labs CBC & Chem 7: 07/04/20 06:59 07/04/20 06:59 Assessment and Plan (1) Alcohol withdrawal: Status: Acute Assessment and Plan: 54-year-old male with a past medical history of hypertension, hyperlipidemia, diabetes-noncompliant with medications, alcohol abuse/opiate abuse presented to the hospital with a chief complaint of bilateral lower extremity swelling/chest discomfort. Chest discomfort: Atypical in nature. Trop not high enough to indicate ischemia. Will see what cardiology has to say. Echo pending. Bilateral lower extremity edema. Echo as above. US no DVT Alcohol Use. Not actively withdrawing Will monitor the patient on CIWA protocol with Ativan. Continue thiamine folate and multivitamins. Opiate dependence:Patient was diaphoretic in the ER. Given a dose of methadone. Will consult Psychiatry for further management of opiate withdrawal. Apneic Episodes: Suppl oxygen; Likely undiagnosed BREE. Should have outpatient sleep study, Hypertensive urgency: Blood pressure has signficantly improved, continue Metoprolol 25 bid Diabetes: Insulin sliding scale. Patient was mildly hyperglycemic on presentation. Hgb A1C. Hyperlipidemia: LDL 126, HLD 60, chol 212, [id number]--fqnp, exercise weight managment DVT prophylaxis: Subcu heparin Code status: Full code
[2020-07-04 12:48] LABS: Glucose, Whole Blood 220 mg/dL (60-115)
[2020-07-04 15:15] LABS: Glucose, Whole Blood 202 mg/dL (60-115)
--- NOTE | 2020-07-04 15:57 | MHC.CM.PN ---
pt lives c a family member in his apt. he is independent in his care. his niece can help him should he need it. this will include a ride home at dc. pt will benefit from a care team consult while here . dc plan is home no svcs vs detox pending care team consult. cm to cont. to follow.
[2020-07-04 16:55] LABS: Glucose, Whole Blood 243 mg/dL (60-115)
[2020-07-04 22:39] LABS: Glucose, Whole Blood 319 mg/dL (60-115)
[2020-07-04] MEDS: LORazepam 1 MG TABLET PO (22:54)
[2020-07-05] VITALS (12 sets, daily range): BP systolic 134–198; BP diastolic 75–94; PULSE 76–119; RESP 16–20; TEMP 36.5–37.3; O2SAT 97–100; BMI 30.8
[2020-07-05] MEDS: Labetalol HCL 100 MG/20 ML VIAL 10 MG IVPUSH (04:12)
[2020-07-05 08:30] LABS: Glucose, Whole Blood 311 mg/dL (60-115)
--- NOTE | 2020-07-05 08:30 | CA_ITS ---
Transthoracic Echocardiogram Patient (Last, First, Middle): Wild Ca M Gender: Male Date of : 1965 Age: 54 Procedure Date: 07/05/2020 Procedure Type: Transthoracic Echocardiogram Location: S3E Height: 177.8 cm Weight: 97.52 kg BSA: 2.15 m2 Heart Rate: bpm BP: 168 / 89 mmHg Silk Examiner: Referring MD: David Lancaster MD Symptoms: chf Study Quality: Good ECG Rhythm: Sinus Conclusions: - The left ventricular systolic function is mildly decreased. The visually estimated ejection fraction is between 40-45%. - There is mild to moderately decreased right ventricular systolic function. - No obvious valvular pathology seen on this study. Findings Left Ventricle Normal left ventricular cavity size. There is moderately increased left ventricular wall thickness. The left ventricular systolic function is mildly decreased. The visually estimated ejection fraction is between 40-45%. There is mild global hypokinesis. Evidence suggests grade I (mild) diastolic dysfunction. Right Ventricle Normal right ventricular cavity size. There is mild to moderately decreased right ventricular systolic function. Atria The left atrium is normal in size. The right atrium is normal in size. Aortic Valve There is a normal trileaflet aortic valve. There is no aortic valve stenosis. There is no aortic valve regurgitation. Mitral Valve The mitral valve appears normal. There is trace mitral valve regurgitation. There is no mitral valve stenosis. Pulmonic Valve The pulmonic valve was not well visualized. Tricuspid Valve Normal tricuspid valve structure. There is trace tricuspid valve regurgitation. The pulmonary artery systolic pressure is normal. Great Vessels The asc aorta and aortic arch are normal in size. Venous The inferior vena cava is normal in size and collapses greater than 50% with inspiration. Pericardium/Pleural There is no evidence of pericardial effusion. Prior Study Comparison No prior study available for comparison. Recommendations, Care & Conclusions No obvious valvular pathology seen on this study. Measurements 2D Linear Measurements RVIDd: 2.69 RVIDd Index: 1.25 IVSd: 1.33 0.6-0.9/0.6-1.0 cm LVIDd: 4.81 3.9-5.3/4.2-5.9 cm LVIDd Index: 2.24 2.4-3.2/2.2-3.1 cm/m2 LVIDs: 3.78 2.0-3.6 cm LVPWd: 1.31 0.7-1.1 cm Ao Root: 3.20 2.1-3.5 cm LA Diam: 3.50 2.7-3.8/3.0-4.0 cm LAIDs Index: 1.63 1.5-2.3 cm/m2 LV Mass: 314.30 67-162/88-224 g LV Mass Index: 146.18 43-95/49-115 g/m2 LVOT Diam: 2.50 3.0+(-)1.3 cm 2D Systolic Function EF 4C: 39.40 >55% EF 2C: 53.40 >55% EF BiP: 44.60 >55% Mitral Valve MV Pk E: 0.56 MV PK A: 0.94 MV Decel Time: 178.00 E/A: 0.60 E'Lateral: 6.96 E'Medial: 5.00 E/E' Med: 11.30 E/E' Lat: 8.10 Aortic Valve AoV Pk Joseph: 1.47 AoV Mn Joseph: 1.09 AoV VTI: 0.23 AoV Pk Grad: 9.00 Aov Mn Grad: 5.00 CRYSTAL Cont.VTI: 3.22 LVOT LVOT Pk Joseph: 0.81 LVOT Mn Joseph: 0.62 LVOT VTI: 0.15 LVOT Pk Grad: 3.00 LVOT Mn Grad: 2.00 LVOT Diam: 2.50 LVOT Area: 4.91 Diastolic Function MV Pk E: 0.56 MV Pk A: 0.94 E/A: 0.60 E'Medial: 5.00 E/E' Med: 11.30 E' Laterial: 6.96 E/E' Lat: 8.10 Tricuspid Valve RA Press: 3.00 Great Vessels Aorta Ao Root-2D: 3.20 2.0-3.7 cm Ao Asc: 3.20 2.1-3.4 cm Ao Arch: 2.50 Updated in Other Vendor System with Status of Final Titi Vieira MD electronically signed on 07/05/2020 3:44:37 PM with status of Final
[2020-07-05] MEDS: Thiamine HCL 100 MG TABLET PO (08:34)
[2020-07-05] MEDS: Folic Acid 1 MG TABLET PO (08:35)
[2020-07-05] MEDS: Metoprolol Tartrate 25 MG TABLET 50 MG PO ×2 (08:35→20:27)
[2020-07-05] MEDS: Famotidine 20 MG TABLET PO ×2 (08:35→20:28)
[2020-07-05] MEDS: lisinopriL 5 MG TABLET PO (08:35)
[2020-07-05] MEDS: Insulin Lispro 100 UNIT/ML 3 ML VIAL SUBCUT ×4 (08:38→20:29)
[2020-07-05] MEDS: 0.9 % Sodium Chloride Flush 3 ML SYRINGE IVFLUSH ×3 (08:44→20:26)
[2020-07-05 11:51] LABS: Glucose, Whole Blood 256 mg/dL (60-115)
--- NOTE | 2020-07-05 13:33 | PM.CNPUL ---
History of Present Illness History of Present Illness Consult date: 07/05/20 Chief complaint: ALCOHOL WITHDRAWAL Narrative: 54-year-old male with a past medical history of hypertension, hyperlipidemia, diabetes-not taking any medications/noncompliant; history of alcohol abuse, opiate abuse-takes heroin on a daily basis presented to the hospital with a chief complaint of bilateral lower extremity swelling. Also complained of chest discomfort, denies any associated nausea vomiting lightheadedness dizziness. While in the ED he did have a documented apneic episode and required oxygen. Therefore, Pulmonary was consulted. On further questioning the patient denies any daytime drowsiness. He denies any significant snoring or headaches in the morning. He denies ever having sleep study. At this point he is off the oxygen. Once the patient is discharged from the hospital make sure his a follow-up with us in our office to further address the question of sleep apnea and see if he wants to pursue a sleep study. In the meantime will continue to monitor him as needed in the hospital. Review of Systems Review of Systems: Constitutional: No Fever, No Chills ENT/Mouth: No sore throat, No Rhinorrhea Eyes: No Eye Pain, No Swelling, No Redness Cardiovascular: Positive bilateral lower extremity edema, No Chest Pain, No SOB Respiratory: No Cough, No Sputum Gastrointestinal: No Nausea, No Vomiting, No Diarrhea, No abdominal Pain Genitourinary: No Dysuria, No Hematuria Musculoskeletal: No joint pain, No Myalgias, No Joint Swelling Skin: No Skin Lesions, No rash Neuro: No Weakness, No Numbness, No Loss of Consciousness, No Dizziness, No Headache Psych: Positive alcohol, cocaine and heroin abuse, No Anxiety, No Depression, No SI/HI/AH/VH Heme/Lymph: No Bruising, No Bleeding,No Lymphadenopathy Endocrine: No Polyuria, No Polydipsia Yes all other systems are reviewed and are negative [facility] Social History Social History Household Members: Family Household Members Other:: mother Housing: Condominium Do you presently have visiting nurse or other home services: No Alcohol intake: unknown Smoking Status: Never smoker Use of substances other than those prescribed or required for medical reasons: Yes Substance Use Type: Heroin Substance Use Frequency: Daily Last Used Substance: Days (ago) Currently Displaying Signs/Symptoms of Drug Intoxication Withdrawal: No Any prior treatment program specific to substance use: Yes (suboxone) Have you been hit, kicked, punched, or otherwise hurt by someone within the past year? If so, by whom?: No Do you feel safe in your current relationship?: No Current Relationship Is there a partner from a previous relationship who is making you feel unsafe now?: No Are you made to feel afraid or neglected: No Advance Directives: No Advance Directives Information Provided: Yes Do you have thoughts of harming others: None Do you have a plan to hurt others: No Plan Recently lost weight without trying: Yes service: No Current occupational status: unemployed Meds Allergies Allergy/AdvReac Type Severity Reaction Status Date / Time No Known Allergies Allergy Unverified 07/03/20 23:00 Active Medications: Current Medications Generic Name Dose Route Start Last Admin Trade Name Freq PRN Reason Stop Dose Admin Enoxaparin Sodium 40 mg 07/04/20 01:00 07/04/20 22:54 Enoxaparin Sodium 40 Mg/0.4 Ml Syringe SUBCUT 40 mg 2200 ARNOLD Administration Famotidine 20 mg 07/04/20 09:00 07/05/20 08:35 Famotidine 20 Mg Tablet PO 20 mg BID ARNOLD Administration Folic Acid 1 mg 07/04/20 09:00 07/05/20 08:35 Folic Acid 1 Mg Tablet PO 07/07/20 08:59 1 mg DAILY ARNOLD Administration Insulin Human Lispro 0 unit 07/04/20 07:30 07/05/20 11:55 Insulin Lispro 100 Unit/Ml 3 Ml Vial SUBCUT 6 unit QIDACHS [facility] Administration Protocol Lisinopril 5 mg 07/05/20 09:00 07/05/20 08:35 Lisinopril 5 Mg Tablet PO 5 mg DAILY ARNOLD Administration Protocol Lorazepam 1 mg 07/04/20 02:06 07/04/20 22:54 Lorazepam 1 Mg Tablet PO 07/08/20 02:05 1 mg Q4H PRN Administration Breakthrough alcohol withdrawa Medication 1 each 07/04/20 09:00 No Benzodiazepines MISCELLANE DAILY [facility] Protocol Metformin HCl 500 mg 07/05/20 17:00 Metformin Hcl 500 Mg Tablet PO BIDWM ARNOLD Metoprolol Tartrate 50 mg 07/05/20 09:00 07/05/20 08:35 Metoprolol Tartrate 25 Mg Tablet PO 50 mg BID ARNOLD Administration Protocol Multivitamins 1 tab 07/04/20 09:00 07/05/20 08:35 B-Complex With Vitamin C Tablet PO 1 tab DAILY ARNOLD Administration Nicotine 21 mg 07/04/20 09:00 07/05/20 08:43 Nicotine 21 Mg Patch.Td24 TRANSDERMA Not Given DAILY [facility] Sodium Chloride 3 ml 07/04/20 08:00 07/05/20 08:44 0.9 % Sodium Chloride Flush 3 Ml Syringe IVFLUSH 3 ml QSHIFT ARNOLD Administration Thiamine HCl 100 mg 07/04/20 09:00 07/05/20 08:34 Thiamine Hcl 100 Mg Tablet PO 07/07/20 08:59 100 mg DAILY ARNOLD Administration Home Medications Medication Instructions Recorded Confirmed Last Taken Type No Known Home Meds 07/03/20 07/03/20 Unknown History Physical Exam Vital Signs: Vital Signs: Last Vital Signs Temp 98.3 F 07/05/20 11:34 Pulse 115 H 07/05/20 11:34 Resp 18 07/05/20 11:34 BP 163/92 H 07/05/20 11:34 Pulse Ox 99 07/05/20 11:34 Body Mass Index 30.8 Const: General: alert Neck: Neck: Yes normal visual inspection, Yes full ROM and Yes no lymphadenopathy Chest: Chest palpation & inspection: normal inspection of the chest Resp: Auscultation: diminished lung sounds Cardio: Rate: regular rate Rhythm: regular rhythm Heart sounds: S1 normal heart sound present and S2 normal heart sound present GI: Palpation (GI): Soft to palpation and nontender Auscultation: normal bowel sounds Skin: General skin exam: rashes and/or lesions noted Results Laboratory Findings CBC and BMP: 07/04/20 06:59 07/04/20 06:59 ABG, PT/INR, D-dimer: PT/INR, D-dimer PT 10.4 SEC (10.8-13.0) L 07/03/20 17:53 INR 0.9 (0.9-1.1) 07/03/20 17:53 D-Dimer < 200 NG/ML 07/04/20 01:58 Abnormal lab findings: Abnormal Labs 07/03/20 07/03/20 07/03/20 14:44 14:44 17:53 RBC 4.40 L Hgb 11.9 L Hct 38.6 L MCH MCHC 30.8 L Neut % (Auto) 76.9 H Lymph % (Auto) 16.3 L PT 10.4 L Carbon Dioxide 31 H BUN 19 H POC Glucose Random Glucose 374 H* AST ALT 07/03/20 07/03/20 07/04/20 17:53 19:04 00:53 RBC Hgb Hct MCH MCHC Neut % (Auto) Lymph % (Auto) PT Carbon Dioxide BUN POC Glucose 186 H 222 H Random Glucose AST 41 H ALT 64 H 07/04/20 07/04/20 07/04/20 06:59 06:59 08:27 RBC Hgb 13.3 L Hct MCH 26.7 L MCHC 30.9 L Neut % (Auto) Lymph % (Auto) PT Carbon Dioxide 35 H BUN POC Glucose 202 H Random Glucose 222 H D AST ALT 07/04/20 07/04/20 07/04/20 12:42 16:51 22:35 RBC Hgb Hct MCH MCHC Neut % (Auto) Lymph % (Auto) PT Carbon Dioxide BUN POC Glucose 220 H 243 H 319 H Random Glucose AST ALT 07/05/20 07/05/20 08:26 11:33 RBC Hgb Hct MCH MCHC Neut % (Auto) Lymph % (Auto) PT Carbon Dioxide BUN POC Glucose 311 H 256 H Random Glucose AST ALT Assessment and Plan (1) BREE (obstructive sleep apnea): Problem details: Likely precipitated by alcohol or other toxins which indeed can worsen the apneic episodes Status: Acute (2) Alcohol withdrawal: Qualifiers: Complication of substance-induced condition: uncomplicated Qualified Code(s): F10.230 - Alcohol dependence with withdrawal, uncomplicated Status: Acute Titrate oxygen off to room air. The patient follow-up with sleep study
[2020-07-05] MEDS: LORazepam 1 MG TABLET PO (13:47)
--- NOTE | 2020-07-05 14:48 | MHC.CLN ---
RE: CONSULT SEE CLINICAL NUTRITION ASSESSMENT
[2020-07-05 16:06] LABS: Glucose, Whole Blood 308 mg/dL (60-115)
[2020-07-05] MEDS: metFORMIN HCl 500 MG TABLET PO (16:26)
--- NOTE | 2020-07-05 16:41 | P.EN_ITS ---
Event Note Date of Service: 07/05/20 Event Note: Addiction follow up note: Patient seen by this lead technical writer on 07/04 and 07/05. Both times patient sleeping, but woke to answer questions. Denies any type of opioid withdrawal sx. COWS have been documented in EMR. No intervention necessary at this time. Will continue to follow
--- NOTE | 2020-07-05 16:43 | HO.PM.IMPN ---
Subjective Subjective Date of Service: 07/05/20 Interval History: Seen in f/u for chest pain, leg swelling. He feels better today. On further questioning, he does have history of diabetes and took insulin (lantus and Novolog) but hasn't taken lantus in more than 4 months and doesn't have PCP anymore. He use to take blood pressure medication as well and doesn't know what they are.. He says he drinks 3 beers a day. Physical Exam Vital Signs: Vital Signs: Last Vital Signs Temp 99.1 F 07/05/20 15:35 Pulse 83 07/05/20 15:35 Resp 17 07/05/20 15:35 BP 171/88 H 07/05/20 15:35 Pulse Ox 98 07/05/20 15:35 Body Mass Index 30.8 General: AO X 3, no acute distress Resp: CTA bilateral CVS: S1,S2,RRR GI: +BS, NT, no distention Skin: No rash Neuro: motor grossly intact Psych: appropriate affect Objective Data Current Medications Generic Name Dose Route Start Last Admin Trade Name Freq PRN Reason Stop Dose Admin Enoxaparin Sodium 40 mg 07/04/20 01:00 07/04/20 22:54 Enoxaparin Sodium 40 Mg/0.4 Ml Syringe SUBCUT 40 mg 2200 ARNOLD Administration Famotidine 20 mg 07/04/20 09:00 07/05/20 08:35 Famotidine 20 Mg Tablet PO 20 mg BID ARNOLD Administration Folic Acid 1 mg 07/04/20 09:00 07/05/20 08:35 Folic Acid 1 Mg Tablet PO 07/07/20 08:59 1 mg DAILY ARNOLD Administration Insulin Human Lispro 0 unit 07/04/20 07:30 07/05/20 16:26 Insulin Lispro 100 Unit/Ml 3 Ml Vial SUBCUT 8 unit QIDACHS ARNOLD Administration Protocol Lisinopril 5 mg 07/05/20 09:00 07/05/20 08:35 Lisinopril 5 Mg Tablet PO 5 mg DAILY ARNOLD Administration Protocol Lorazepam 1 mg 07/04/20 02:06 07/05/20 13:47 Lorazepam 1 Mg Tablet PO 07/08/20 02:05 1 mg Q4H PRN Administration Breakthrough alcohol withdrawa Medication 1 each 07/04/20 09:00 No Benzodiazepines MISCELLANE DAILY ARN[facility] Protocol Metformin HCl 500 mg 07/05/20 17:00 07/05/20 16:26 Metformin Hcl 500 Mg Tablet PO 500 mg BIDWM ARNOLD Administration Metoprolol Tartrate 50 mg 07/05/20 09:00 07/05/20 08:35 Metoprolol Tartrate 25 Mg Tablet PO 50 mg BID ARNOLD Administration Protocol Multivitamins 1 tab 07/04/20 09:00 07/05/20 08:35 B-Complex With Vitamin C Tablet PO 1 tab DAILY ARNOLD Administration Nicotine 21 mg 07/04/20 09:00 07/05/20 08:43 Nicotine 21 Mg Patch.Td24 TRANSDERMA Not Given DAILY [facility] Sodium Chloride 3 ml 07/04/20 08:00 07/05/20 15:49 0.9 % Sodium Chloride Flush 3 Ml Syringe IVFLUSH 3 ml QSHIFT ARNOLD Administration Thiamine HCl 100 mg 07/04/20 09:00 07/05/20 08:34 Thiamine Hcl 100 Mg Tablet PO 07/07/20 08:59 100 mg DAILY ARNOLD Administration Labs CBC & Chem 7: 07/04/20 06:59 07/04/20 06:59 Assessment and Plan (1) Alcohol withdrawal: Status: Acute Assessment and Plan: 54-year-old male with a past medical history of hypertension, hyperlipidemia, diabetes-noncompliant with medications, alcohol abuse/opiate abuse presented to the hospital with a chief complaint of bilateral lower extremity swelling/chest discomfort. Chest discomfort: Atypical in nature. Negative trop Bilateral lower extremity edema. no DVT, likely has acute systolic heart failure -add oral lasix -Cardiology consult Alcohol Use. Not actively withdrawing Will monitor the patient on CIWA protocol with Ativan. Continue thiamine folate and multivitamins. Opiate dependence:Not actively withdrawing, add clonidine, CIWA Apneic Episodes: Suppl oxygen; Likely undiagnosed BREE. Should have outpatient sleep study, Hypertensive urgency: Old records shows that he took Lisinopril 40, Metoprolol 100 bid, Clonidine 0.2 bid--Will reaintroduce slowly Diabetes: This is not new, he used to take Lantus, Metformin and Novolog..Will restart slowly Hyperlipidemia: LDL 126, HLD 60, chol 212, HC998--Ve takes Lipitor 80 daily DVT prophylaxis: Subcu heparin Code status: Full code
[2020-07-05] MEDS: cloNIDine HCL 0.1 MG TABLET PO (17:19)
[2020-07-05 20:08] LABS: Glucose, Whole Blood 265 mg/dL (60-115)
[2020-07-05] MEDS: cloNIDine HCL 0.1 MG TABLET 0.2 MG PO (20:26)
[2020-07-05] MEDS: Atorvastatin Calcium 80 MG TABLET PO (20:27)
[2020-07-05] MEDS: Insulin Glargine,Hum.rec.anlog 100 UNIT/ML 10 ML VIAL 10 UNIT SUBCUT (20:28)
[2020-07-05] MEDS: Enoxaparin Sodium 40 MG/0.4 ML SYRINGE SUBCUT (20:29)
[2020-07-06 03:45] VITALS: BP 137/77; PULSE 86; RESP 20; TEMP 36.4; O2SAT 97
[2020-07-06 08:00] VITALS: BP 156/89; PULSE 97; RESP 16; TEMP 36.5; O2SAT 99
[2020-07-06 09:01] LABS: Glucose, Whole Blood 287 mg/dL (60-115)
[2020-07-06 09:05] VITALS: BP 156/89; PULSE 97
[2020-07-06] MEDS: Metoprolol Tartrate 25 MG TABLET 50 MG PO (09:05)
[2020-07-06] MEDS: Insulin Lispro 100 UNIT/ML 3 ML VIAL SUBCUT ×2 (09:05→12:01)
[2020-07-06] MEDS: Thiamine HCL 100 MG TABLET PO (09:05)
[2020-07-06 09:06] VITALS: BP 156/89; PULSE 97
[2020-07-06] MEDS: lisinopriL 20 MG TABLET PO ×2 (09:06→12:01)
[2020-07-06] MEDS: cloNIDine HCL 0.1 MG TABLET 0.2 MG PO (09:06)
[2020-07-06] MEDS: metFORMIN HCl 500 MG TABLET PO (09:06)
[2020-07-06] MEDS: Folic Acid 1 MG TABLET PO (09:06)
[2020-07-06] MEDS: Famotidine 20 MG TABLET PO (09:06)
[2020-07-06] MEDS: 0.9 % Sodium Chloride Flush 3 ML SYRINGE IVFLUSH (09:07)
--- NOTE | 2020-07-06 11:39 | MHC.CM.PN ---
PATIENT NOW HAS [facility] PROVIDER LIST FOR SECURING A LOCAL PCP. HE IS DISCHARGED TODAY WITH NO NEED FOR SERVICES.
[2020-07-06 11:51] LABS: Glucose, Whole Blood 339 mg/dL (60-115)
--- NOTE | 2020-07-06 11:58 | PM.CNCAR ---
History of Present Illness History of Present Illness Date of Service: 07/06/20 Consult reason: congestive heart failure Chief complaint: ALCOHOL WITHDRAWAL Narrative: This is a cardiology consultation regarding congestive heart failure. Patient has a history of hypertension, dyslipidemia, type 2 diabetes. It seems that he has alcohol dependence as well as drug use including heroin and cocaine. He was admitted primarily for bilateral leg swelling. He has not been taking medications for many months now. Otherwise he is denying any chest pain or shortness of breath or any other cardiac complaints. We have been asked to assess his cardiac status further. He had an echocardiogram yesterday that showed diminished LVEF. Today, patient states that he actually feels quite well and would like to be discharged. Review of Systems Review of Systems: Yes all other systems are reviewed and are negative Cardiovascular: Cardiovascular: Reports as per HPI, Reports no additional cardiovascular complaints, Denies acrocyanosis, Denies cool extremities, Denies painful fingertips, Denies chest pain, Denies chest pain at rest, Denies diaphoresis, Denies syncope, Denies irregular heart rhythm, Denies claudication, Denies leg edema, Denies lightheadedness, Denies palpitations and Denies dyspnea Respiratory: Respiratory: Denies dyspnea Neurologic: Denies syncope Endocrine: Endocrine: Denies palpitations PMF Past Medical History Medical History (Updated 07/06/20 @ 12:02 by Titi Vieira MD) Essential hypertension Type 2 diabetes mellitus with unspecified complications Family History Family history: reviewed and not pertinent Social History Social History Household Members: Family Household Members Other:: mother Housing: Condominium Do you presently have visiting nurse or other home services: No Alcohol intake: unknown Smoking Status: Never smoker Use of substances other than those prescribed or required for medical reasons: Yes Substance Use Type: Heroin Substance Use Frequency: Daily Last Used Substance: Days (ago) Currently Displaying Signs/Symptoms of Drug Intoxication Withdrawal: No Any prior treatment program specific to substance use: Yes (suboxone) Have you been hit, kicked, punched, or otherwise hurt by someone within the past year? If so, by whom?: No Do you feel safe in your current relationship?: No Current Relationship Is there a partner from a previous relationship who is making you feel unsafe now?: No Are you made to feel afraid or neglected: No Advance Directives: No Advance Directives Information Provided: Yes Do you have thoughts of harming others: None Do you have a plan to hurt others: No Plan Recently lost weight without trying: Yes service: No Current occupational status: unemployed Meds Allergies Allergy/AdvReac Type Severity Reaction Status Date / Time No Known Allergies Allergy Unverified 07/03/20 23:00 Active Medications: Current Medications Generic Name Dose Route Start Last Admin Trade Name Freq PRN Reason Stop Dose Admin Atorvastatin Calcium 80 mg 07/05/20 21:00 07/05/20 20:27 Atorvastatin Calcium 80 Mg Tablet PO 80 mg BEDTIME ARNOLD Administration Clonidine HCl 0.2 mg 07/05/20 21:00 07/06/20 09:06 Clonidine Hcl 0.1 Mg Tablet PO 0.2 mg BID ARNOLD Administration Protocol Enoxaparin Sodium 40 mg 07/04/20 01:00 07/05/20 20:29 Enoxaparin Sodium 40 Mg/0.4 Ml Syringe SUBCUT 40 mg 2200 ARNOLD Administration Famotidine 20 mg 07/04/20 09:00 07/06/20 09:06 Famotidine 20 Mg Tablet PO 20 mg BID ARNOLD Administration Folic Acid 1 mg 07/04/20 09:00 07/06/20 09:06 Folic Acid 1 Mg Tablet PO 07/07/20 08:59 1 mg DAILY ARNOLD Administration Insulin Glargine 10 unit 07/05/20 21:00 07/05/20 20:28 Insulin Glargine,Hum.Rec.Anlog 100 Unit/Ml 10 Ml Vial SUBCUT 10 unit BEDTIME ARNOLD Administration Insulin Human Lispro 0 unit 07/04/20 07:30 07/06/20 09:05 Insulin Lispro 100 Unit/Ml 3 Ml Vial SUBCUT 6 unit QIDACHS ARNOLD Administration Protocol Lisinopril 20 mg 07/06/20 09:00 07/06/20 09:06 Lisinopril 20 Mg Tablet PO 20 mg DAILY ARNOLD Administration Protocol Lorazepam 1 mg 07/04/20 02:06 07/05/20 13:47 Lorazepam 1 Mg Tablet PO 07/08/20 02:05 1 mg Q4H PRN Administration Breakthrough alcohol withdrawa Medication 1 each 07/04/20 09:00 No Benzodiazepines MISCELLANE DAILY ARNOLD Protocol Metformin HCl 500 mg 07/05/20 17:00 07/06/20 09:06 Metformin Hcl 500 Mg Tablet PO 500 mg BIDWM ARNOLD Administration Metoprolol Tartrate 50 mg 07/05/20 09:00 07/06/20 09:05 Metoprolol Tartrate 25 Mg Tablet PO 50 mg BID ARNOLD Administration Protocol Multivitamins 1 tab 07/04/20 09:00 07/06/20 09:05 B-Complex With Vitamin C Tablet PO 1 tab DAILY ARNOLD Administration Nicotine 21 mg 07/04/20 09:00 07/06/20 09:07 Nicotine 21 Mg Patch.Td24 TRANSDERMA Not Given DAILY [facility] Sodium Chloride 3 ml 07/04/20 08:00 07/06/20 09:07 0.9 % Sodium Chloride Flush 3 Ml Syringe IVFLUSH 3 ml QSHIFT [facility] Administration Thiamine HCl 100 mg 07/04/20 09:00 07/06/20 09:05 Thiamine Hcl 100 Mg Tablet PO 07/07/20 08:59 100 mg DAILY ARNOLD Administration Home Medications Medication Instructions Recorded Confirmed Last Taken Type No Known Home Meds 07/03/20 07/03/20 Unknown History Physical Exam Vital Signs: Vital Signs: Last Vital Signs Temp 97.7 F 07/06/20 08:00 Pulse 97 07/06/20 09:06 Resp 16 07/06/20 08:00 BP 156/89 H 07/06/20 09:06 Pulse Ox 99 07/06/20 08:00 Body Mass Index 30.8 Const: General: cooperative, comfortable and no acute distress Orientation/consciousness: patient oriented x3 HENMT: Other: Unremarkable Neck: Neck: Yes normal visual inspection Chest: Chest palpation & inspection: normal inspection of the chest Resp: Auscultation: clear to auscultation bilaterally, no crackles and no wheezes Cardio: Jugular venous distension: no JVD Palpation: normal PMI Heart sounds: S1 normal heart sound present, S2 normal heart sound present, no gallops, no murmurs and no rubs GI: Palpation (GI): Soft to palpation Back/Spine/Pelvis: Other: unremarkable Skin: General skin exam: no rashes or lesions noted Neuro: General: patient oriented x3 Extrem: General: Yes no clubbing, cyanosis or edema Psych: Mental Status: mental status grossly normal Results Labs and Meds Result diagrams: 07/04/20 06:59 04/13/21 06:59 Lab results: Laboratory Results - last 24 hr 07/05/20 07/05/20 07/06/20 15:55 20:01 07:19 POC Glucose 308 H 265 H 287 H 07/06/20 11:29 POC Glucose 339 H ECG Attestation: I personally reviewed and interpreted this ECG as follows: Interpretation: EKG shows sinus rhythm at 90/Min; voltage criteria for left ventricular hypertrophy and mild QT prolongation Assessment and Plan (1) Acute on chronic diastolic (congestive) heart failure: Status: Acute (2) Essential hypertension: Status: Acute (3) Type 2 diabetes mellitus with unspecified complications: Status: Acute (4) Alcohol withdrawal: Qualifiers: Complication of substance-induced condition: uncomplicated Qualified Code(s): F10.230 - Alcohol dependence with withdrawal, uncomplicated Status: Acute (5) Heroin abuse: Status: Acute (6) Substance abuse: Status: Acute He was possibly in mild failure from medication noncompliance as well as excessive drinking. LVEF on the echocardiogram is 40-45%. Today however, he has no leg swelling whatsoever. Otherwise no clinical evidence of congestive heart failure as well. He needs to go back on his medications for diabetes and hypertension. Avoidance of alcohol and drugs. Ischemic workup when he is compliant and abstains from alcohol/drugs.
[2020-07-06 12:00] VITALS: BP 155/80; PULSE 80; RESP 16; TEMP 36.3; O2SAT 100
[2020-07-06 12:01] VITALS: BP 156/89; PULSE 97
--- NOTE | 2020-07-06 12:07 | P.DS_ITS ---
DS: Providers Provider Date of Service: 07/25/20 Date of admission: 07/04/20 00:55 Primary care physician: Unknown Physician Consults: 07/04/20 02:02 Consult to Psychiatry Routine Consulting Provider: Psych Covering Reason for consultation: Opiate withdrawal 07/04/20 03:09 Consult to Pulmonology Routine Consulting Provider: Rui Kimball Reason for consultation: apneic episodes 07/04/20 22:42 Consult Respiratory Therapy Routine Reason for consultation: sleep apnea Has provider been notified: No 07/05/20 16:49 Addiction Medicine Routine Consulting Provider: Olga Killian Reason for consultation: opioid dependence Has provider been notified: No Consult to Cardiology Routine Consulting Provider: Titi Vieira Reason for consultation: New onset heart failur Has provider been notified: No DS: Diagnosis Discharge Diagnosis (1) Acute on chronic diastolic (congestive) heart failure: Status: Acute (2) Essential hypertension: Status: Acute (3) Type 2 diabetes mellitus with unspecified complications: Status: Acute (4) Alcohol withdrawal: Status: Acute (5) Heroin abuse: Status: Acute (6) Substance abuse: Status: Acute DS: Medications Discharge Medications Home Medications: Home Medications Medication Instructions Recorded Confirmed No Known Home Meds 07/03/20 07/03/20 DS: Summary Hospital Course Hospital Course: Chief Complaint: Bilateral lower extremity swelling 54-year-old male with a past medical history of hypertension, hyperlipidemia, diabetes-not taking any medications/noncompliant; history of alcohol abuse, opiate abuse-takes heroin on a daily basis presented to the hospital with a chief complaint of bilateral lower extremity swelling. Also complained of chest discomfort, denies any associated nausea vomiting lightheadedness dizziness; Patient denies any chest pain or palpitations at the time of my interview. Denies any cough. Spoke to the patient's family at bedside. Patient denies any GI or symptoms. Reportedly patient also uses cocaine intermittently. ER course: For ER team patient noted to have 3+ pitting edema on the bilateral lower extremity; EKG nonischemic; troponin negative. Patient was given phenobarb loading dose given concerns for possible alcohol withdrawal.-patient's last alcohol drink was about 2 days ago. Patient has last heroin used was yesterday. Hospital course: Essentially patient is a diabetic and has HTN, HLD and has not been on medication for a while he says because of issues with loosing PCP, he supposely drink --he says about 3 beers a month. He presented to the ED with swelling in legs and some chest discomfort and there was concern that he could go into alcohol withdrwal. His blood pressure high and blood sugars were also high as he has not been taken any medication. He has no known diagnosis of heart failure but was given lasix in the ED for swelling in the legs. He has been on CIWA and has not gone into full blown alcohol witdrawal. For HTN, he tells me he used to take Lisinopril 40, Metoprolol 100 twice a day and clonidine 0.2 bid.. These medication have been restarted will be issue new prescription. For diabetes, he says he takes Novolog 70/30 44 twice day and Meforming a 1000 daily. He has been on Sliding scale, started on Metformin and Lantus at 10 and will increase to 20 at discharge. Hyperlipidemia: LDL 126, HLD 60, chol 212, FS055--Vr used to be on Lipitor 80 and will restart and issue prescription for t his. For leg edema likely had acute systolic heart failure and presently no longer has edema. Echo showed EF of 40 to 45. Cardiology advises compliance with medications and ischemic work up at later time. He is agreable to restart all med and be compliant with them. Case management will help restablished with PcP. He also is suspected of having BREE and Dr. Anand saw him and recommends outpatient work up with sleep study in the meantime advised to loose weight, avoid alcohol and drugs...I confirmed the med with old prescribed meds Time Spent with Patient Time attestation: Total time spent providing and/or coordinating discharge services: Discharge coordination time: Greater than 30 minutes Physical Exam Vital Signs: Vital Signs: Last Vital Signs Temp 97.7 F 07/06/20 08:00 Pulse 97 07/06/20 12:01 Resp 16 07/06/20 08:00 BP 156/89 H 07/06/20 12:01 Pulse Ox 99 07/06/20 08:00 Body Mass Index 30.8 General: AO X 3, no acute distress Resp: CTA bilateral CVS: S1,S2,RRR GI: +BS, NT, no distention Skin: No rash Neuro: motor grossly intact Psych: appropriate affect DS: Data Data Completed and Pending Labs on day of discharge: Laboratory Results - last 24 hr 07/05/20 07/05/20 07/06/20 15:55 20:01 07:19 POC Glucose 308 H 265 H 287 H 07/06/20 11:29 POC Glucose 339 H Discharge Plan Discharge Anticipated Discharge Date/Time: 07/06/20 12:02 Patient Disposition: Home, Self-Care Discharge Diagnosis: Diabetes, HTN, alcohol use Referrals: Physician,Unknown [Primary Care Provider] - 1 Week Discharge Medications: New atorvastatin 80 mg Tablet 80 mg PO BEDTIME Qty: 30 RF: 0 clonidine HCl 0.1 mg Tablet 0.2 mg PO BID Qty: 60 RF: 0 lisinopril 40 mg tablet 40 mg PO DAILY Qty: 30 RF: 0 metoprolol tartrate 100 mg tablet 100 mg PO BID Qty: 60 RF: 0 insulin asp prt-insulin aspart [Novolog Mix 70-30FlexPen U-100] 100 unit/mL (70-30) insulin pen 44 unit subcut BID Qty: 15 RF: 0 aspirin 81 mg tablet,chewable 81 mg PO DAILY Qty: 30 RF: 0 omeprazole magnesium [Prilosec OTC] 20 mg tablet,delayed release (DR/EC) 20 mg PO DAILY Qty: 30 RF: 0 Discharge Orders: Discharge Order (Routine); Ordered 07/06/20 Ordered By: Juan Escobedo Diet: diabetic diet Activity on Discharge: As tolerated Stand Alone Forms: Patient Portal Discharge page Care Plan Goals: prevent rehospitalization Health Concerns: medication non-adherence Plan of Treatment: Take your diabetes and blood pressure medication, avoid alcohol Assessment: uncontrolled blood pressure, diabetes and go see your primary care doctor Discharge Date/Time: 07/06/20 17:30
== END 2020-07-06 17:30 | disposition home or self-care (01) | DRG 291 ==
LOC: HO.ED 22:49 → HO.EDOVER 07-04 01:50 → HO.S3 07-04 17:54
PROVIDERS: Nurse Practitioner Family; Admitting Provider Hospitalist; Emergency Provider Emergency Medicine; Visit Provider Internal Medicine
DX: I11.0 Hypertensive heart disease with heart failure (principal); I50.21 Acute systolic (congestive) heart failure; F10.230 Alcohol dependence with withdrawal, uncomplicated; F11.20 Opioid dependence, uncomplicated; F14.20 Cocaine dependence, uncomplicated; E78.5 Hyperlipidemia, unspecified; I16.0 Hypertensive urgency; G47.33 Obstructive sleep apnea (adult) (pediatric); E11.65 Type 2 diabetes mellitus with hyperglycemia; Z91.14 Patient's other noncompliance with medication regimen; Z20.822 Contact with and (suspected) exposure to COVID-19; Z79.4 Long term (current) use of insulin; Z79.82 Long term (current) use of aspirin; Z79.899 Other long term (current) drug therapy
CPT/HCPCS: 0241U; 36415; 70450; 71045; 80048; 80061; 80076; 80307; 80320; 81001; 82947; 83036; 83690; 83735; 83880; 84484; 85025; 85379; 85610; 85730; 93005; 93306; 93970; 96372; 96374; 99285; 99291; J1650; J1940; J2560

== ENCOUNTER 2021-10-24 13:40 | Emergency (ER) | payer MEDICARE, MEDICAID, SELFPAY ==
[2021-10-24 13:52] VITALS: BP 123/64; BP 140/70; PULSE 105; PULSE 107; RESP 18; TEMP 36.2; O2SAT 100; O2SAT 98; BMI 29.0
--- NOTE | 2021-10-24 14:58 | ED_ITS ---
HPI - Overdose General Chief Complaint: Overdose Stated Complaint: HEROIN OD,NARCAN GIVEN W/GOOD RESULT PER EMS Time Seen by Provider: 10/24/21 14:26 Source: patient and EMS Mode of arrival: EMS Limitations: no limitations History of Present Illness HPI Narrative: Patient comes to the emergency room complaining of an accidental overdose. Patient states that he used 2 bags of heroin. Patient was found by bystanders in the street, laying down, unresponsive. EMS was called, patient was only responsive to painful stimuli, patient was given 1 mg Narcan via IV. Patient reacted well to it. Patient states that he remembers waking up in the ambulance feeling scared. Patient denies chest pain or shortness of breath. Patient denies suicidal or homicidal ideation, states this was accidental. At this time, patient has no further complaints. Related Data Previous Rx's Medication Instructions Recorded aspirin 81 mg chewable tablet 81 mg PO DAILY #30 tabs 07/06/20 atorvastatin 80 mg tablet 80 mg PO BEDTIME #30 tabs 07/06/20 clonidine HCl 0.1 mg tablet 0.2 mg PO BID #60 tabs 07/06/20 insulin aspar prot-insulin aspart 44 unit (0.44 mL) subcut BID #15 mL 07/06/20 100 unit/mL (70-30) subcutaneous pen (Novolog Mix 70-30FlexPen U-100) lisinopril 40 mg tablet 40 mg PO DAILY #30 tabs 07/06/20 metoprolol tartrate 100 mg tablet 100 mg PO BID #60 tabs 07/06/20 omeprazole magnesium 20 mg 20 mg PO DAILY #30 tabs 07/06/20 tablet,delayed release (Prilosec OTC) Allergies Allergy/AdvReac Type Severity Reaction Status Date / Time No Known Allergies Allergy Unverified 07/03/20 23:00 Review of Systems Review of Systems: Constitutional : No Weight loss, No Fever, No Chills, No Night Sweats, No Fatigue, No Malaise ENT/Mouth : No Hearing loss, No Ear Pain, No Nasal Congestion, No Sinus Pain, No Hoarseness, No sore throat, No Rhinorrhea, No Swallowing Difficulty Eyes: No Eye Pain, No Swelling, No Redness, No Foreign Body, No Discharge, No Vision Changes Cardiovascular : No Chest Pain, No SOB, No Dyspnea on Exertion, No Orthopnea, No Edema, No Palpitations Respiratory : No Cough, No Sputum, No Wheezing, No Smoke Exposure, No Dyspnea Gastrointestinal : No Nausea, No Vomiting, No Diarrhea, No Constipation, No abdominal Pain, No Hematochezia, No Melena Genitourinary : no irregular bleeding, No Dysuria, No Urinary Frequency, No Hematuria, No Urinary Incontinence, No Urgency, No Flank Pain, No Urinary Flow Changes, No Hesitancy Musculoskeletal : No joint pain, No Myalgias, No Joint Swelling Skin : No Skin Lesions, No rash Neuro : No Weakness, No Numbness, No Paresthesias, No Loss of Consciousness, No Dizziness, No Headache Psych : No Anxiety/Panic, No Depression, No SI/HI/AH/VH, had an overdose today Heme/Lymph: No Bruising, No Bleeding,No Lymphadenopathy Endocrine : No Polyuria, No Polydipsia, No Temperature Intolerance PMFSH Past Medical History Medical History Alcohol withdrawal Essential hypertension Heroin abuse Type 2 diabetes mellitus with unspecified complications Social History Social History Household Members: Family Household Members Other:: mother [facility] Do you presently have visiting nurse or other home services: No Alcohol intake: unknown Substance Use Type: Heroin Advance Directives: No Advance Directives Information Provided: No service: No Current occupational status: unemployed Physical Exam Vital Signs: Vital Signs: Last Vital Signs Temp 97.2 F 10/24/21 13:52 Pulse 105 H 10/24/21 13:52 Resp 18 10/24/21 13:52 BP 123/64 10/24/21 13:52 Pulse Ox 98 10/24/21 13:52 O2 Del Method 10/24/21 13:52 BMI result Body Mass Index 29.0 Const: Other: Appearance: Alert. Oriented X3. No acute distress. Eyes: Pupils equal, round and reactive to light. ENT: Pharynx normal. Neck: Normal inspection. Neck supple. No lymph nodes noted. No crepitus CVS: Normal heart rate and rhythm. Pulses normal. Normal S1 and S2 Respiratory: No respiratory distress. Breath sounds normal. No Wheezing. No rales Abdomen: Soft and nontender. No rigidity. No distention. Skin: Skin warm and dry. Normal skin color. Normal skin turgor. Extremities: No lower extremity edema. No Lacerations. No Rash Neuro: Oriented X 3. No motor deficit. No sensory deficit. Moving all extremities. No slurred speech. CN 2 through 12 grossly intact Psych: calm, cooperative, normal affect Course Course Course Narrative: Patient is awake alert, calm and cooperative. Oxygen saturation remained above 98% on room air. Care consult pending Patient provided with home Narcan Physician ulceration started at 14:45 Care team evaluated the patient, patient ready for discharge. Discharge Plan Discharge Clinical Impression: Drug overdose Patient Disposition: Home, Self-Care Instructions: Adult Overdose (ED) Additional Instructions: Please follow-up with your primary care physician tomorrow. If you have any worsening or new symptoms, please return to the emergency room or call 911 Prescriptions: No Action atorvastatin 80 mg Tablet 80 mg PO BEDTIME Qty: 30 0RF clonidine HCl 0.1 mg Tablet 0.2 mg PO BID Qty: 60 0RF Protocol: Hold for SBP< HOLD for SBP < : 90 lisinopril 40 mg tablet 40 mg PO DAILY Qty: 30 0RF metoprolol tartrate 100 mg tablet 100 mg PO BID Qty: 60 0RF insulin asp prt-insulin aspart [Novolog Mix 70-30FlexPen U-100] 100 unit/mL (70-30) insulin pen 44 unit subcut BID Qty: 15 0RF aspirin 81 mg tablet,chewable 81 mg PO DAILY Qty: 30 0RF omeprazole magnesium [Prilosec OTC] 20 mg tablet,delayed release (DR/EC) 20 mg PO DAILY Qty: 30 0RF
--- NOTE | 2021-10-24 15:59 | HO.SUDE ---
Met with pt in 18H to discuss substance use and overdose. Sodium Methylate Operator was utilized. Pt reports using one bag heroin, [place], which resulted in overdose. Last use prior to today was 10/26. Pt denies hx overdose. Pt reports using heroin occasionally and does experience withdrawal symptoms when not using. Denies daily use. Denies other substances, states I quit alcohol a long time ago. Denies cravings for alcohol. Pt reports having been prescribed Suboxone on and off for one year through [facility]. Pt has had discussions with provider regarding switching to methadone. Educated pt regarding all forms of MOUD. Pt plans to present as walk in to [facility] tomorrow to continue discussion regarding MOUD. Discussed ATS with pt, pt had thought about going 4 months ago but did not due to taking care of his mother. Pt declines ATS referrals at this time. Educated pt regarding precipitated withdrawal, harm reduction, recovery resources and supports. Pt provided with [facility] information in [place]. Pt denies questions or concerns at this time and is requesting to discharge. ED provider aware.
[2021-10-24] MEDS: Naloxone HCl Nasal TAKE HOME 4 MG SPRAY NOSTRILALT (17:00)
--- NOTE | 2021-10-24 17:07 | MHC.RECOVSUP ---
? Reason for consult Recovery Support o Current location: ED18H o Identified substance use concern: Heroin - Overdose - Support ? Intervention: o Community resources provided o Harm reduction discussion ? Plan: o Patient to follow up with H after discharge ? Additional information: Met with patient and we spoke about recovery and Harm reduction.. we spoke about [facility]..
== END 2021-10-24 17:17 | disposition home or self-care (01) ==
PROVIDERS: Emergency Provider Emergency Medicine; PCP Nurse Practitioner Primary Care
DX: T40.1X1A Poisoning by heroin, accidental (unintentional), initial encounter (principal); Y92.9 Unspecified place or not applicable; Z79.899 Other long term (current) drug therapy; Z71.51 Drug abuse counseling and surveillance of drug abuser
CPT/HCPCS: 99282; 99284

== ENCOUNTER 2021-10-26 17:19 | Inpatient (IN) | payer MEDICARE, MEDICAID, SELFPAY ==
--- NOTE | ~2021-10-26 | CT_ITS ---
EXAMINATION CT CHEST, ABDOMEN AND PELVIS WITHOUT CONTRAST CLINICAL INFORMATION: Altered mental status. Fall. COMPARISON: CT chest dated 12/10/2018 TECHNIQUE: Multidetector volumetric CT imaging of the chest, abdomen and pelvis was obtained without intravenous contrast. Coronal and sagittal reformats were reviewed. This CT examination was performed using dose optimization techniques as appropriate, variously including the following: *Automated exposure control *Adjustment of mA and/or kV according to patient size (this includes techniques or standardized protocols for targeted exams where dose is matched to indication/reason for exam; i.e. extremities or head) *Use of iterative reconstruction technique DLP: 457 mGy-cm. FINDINGS: CHEST LUNGS/PLEURA: Lungs are clear. No parenchymal consolidation or pneumothorax. Stable calcified granuloma in the left upper lobe laterally near the major fissure. No suspicious pulmonary nodules.. There is no pleural effusion. No pleural mass or thickening. MEDIASTINUM/ARTURO: Normal heart size. No pericardial effusion. Mild coronary calcifications. No mediastinal, hilar or supraclavicular lymphadenopathy. CHEST WALL/AXILLA: Unremarkable. ABDOMEN/PELVIS HEPATOBILIARY: Liver normal in size, contour and morphology. No suspicious lesions. No intra or extrahepatic biliary dilation. Gallbladder unremarkable. PANCREAS: Unremarkable. SPLEEN: Unremarkable. ADRENAL GLANDS: Unremarkable. KIDNEYS, URETERS AND BLADDER: Kidneys normal in size, axis and morphology. There is a 2.7 cm simple fluid attenuating cyst in the left kidney is benign and requires no follow-up. No hydronephrosis or urinary calculi. Ureters normal in course and caliber. Bladder grossly unremarkable.. GASTROINTESTINAL TRACT: No bowel related abnormalities. PELVIC VISCERA: Mild prostatomegaly. Seminal vesicles unremarkable. LYMPH NODES: No lymphadenopathy. PERITONEUM/BODY WALL: Unremarkable. VASCULAR STRUCTURES: Aorta is mildly atherosclerotic. OSSEOUS STRUCTURES No acute or suspicious osseous abnormalities. There is a lucent focus within the right ilium posteriorly which is increased in size slightly since July 2011, benign in etiology. CT/CT abdomen pelvis wo con IMPRESSION: No acute findings within the chest, abdomen or pelvis. No fractures.
--- NOTE | ~2021-10-26 | CT_ITS ---
EXAMINATION: CT HEAD/BRAIN WITHOUT CONTRAST CT CERVICAL SPINE WITHOUT CONTRAST CLINICAL INFORMATION: Headache and neck pain, status post fall. COMPARISON: CT of the head 07/04/2020. TECHNIQUE: Multiple axial images were obtained from the skull base to vertex without intravenous contrast administration. Multidetector volumetric CT imaging of the cervical spine is acquired without intravenous contrast administration. Postprocessing is performed at a dedicated workstation. Multiplanar reformatted images are submitted. This CT scan was performed using dose optimization techniques as appropriate to a performed exam including the following: *Automated exposure control *Adjustment of mA and/or kV according to patient size (this includes techniques or standardized protocols for targeted exams were dose is matched to indication/reason for exam; i.e. extremities or head) *Use of iterative reconstruction technique. DLP: 1323 mGy-cm. FINDINGS: CT HEAD: Ventricles and sulci are normal. There is no evidence of acute intracranial hemorrhage, midline shift, mass effect, acute territorial infarction or abnormal extra-axial fluid collection. No significant abnormal parenchymal attenuation is noted. No acute fracture of the osseous calvarium. The paranasal sinuses and mastoid air cells are well aerated. No significant calvarial soft tissue hematoma is noted. There is somewhat prominent ill-defined soft tissue in the subcutaneous fat at the skull base and at the craniocervical junction posteriorly which is a stable finding compared to previous CT scan of 07/04/2020. CT CERVICAL SPINE: Vertebral body heights and alignment are maintained. The posterior elements are intact and in normal alignment. Atlantoaxial and atlantooccipital alignments are maintained. There is vcykysch-xc-ssooam narrowing of the C3-C4 disc space with small endplate osteophytes. Bilateral riqpcbtv-ul-yroesi neural foraminal stenosis is noted, right greater than left. Moderate disc space narrowing is noted at C5-C6 with the small marginal endplate osteophytes and with moderate bilateral neural foraminal stenosis. No evidence of tight central canal stenosis. Atlantoaxial and atlantooccipital alignments are maintained. No evidence of prevertebral soft tissue swelling. The airway is patent. No focal thyroid nodule. Visualized lung apices are unremarkable. CT/CT head/brain wo con IMPRESSION: 1. No evidence of acute intracranial abnormality. Specifically, there is no evidence of acute intracranial hemorrhage or acute fracture of the osseous calvarium. 2. No evidence of acute fracture or traumatic subluxation in the cervical spine. Straightening of the cervical spine is likely related to muscle spasm or positioning of the patient. Cervical spondylosis, most prominent at C3-C4 and C5-C6 with bilateral vzwydwth-aw-gtttui neural foraminal stenosis. Findings were discussed with KIM Lewis on 10/26/2021 at the time of the initial review.
--- NOTE | ~2021-10-26 | XR_ITS ---
EXAMINATION: XR chest 1V CLINICAL INFORMATION: Reason for Exam fall, substance abuse, ams COMPARISON: Chest radiograph 07/03/2020 TECHNIQUE: One view of the chest XR/XR chest 1V FINDINGS/IMPRESSION: * Stable calcified granuloma in the left mid lung. Lungs appear otherwise clear. * No pneumothorax or pleural effusion. * Normal cardiomediastinal silhouette.
--- NOTE | ~2021-10-26 | CT_ITS ---
EXAMINATION: CT HEAD/BRAIN WITHOUT CONTRAST CT CERVICAL SPINE WITHOUT CONTRAST CLINICAL INFORMATION: Headache and neck pain, status post fall. COMPARISON: CT of the head 07/04/2020. TECHNIQUE: Multiple axial images were obtained from the skull base to vertex without intravenous contrast administration. Multidetector volumetric CT imaging of the cervical spine is acquired without intravenous contrast administration. Postprocessing is performed at a dedicated workstation. Multiplanar reformatted images are submitted. This CT scan was performed using dose optimization techniques as appropriate to a performed exam including the following: *Automated exposure control *Adjustment of mA and/or kV according to patient size (this includes techniques or standardized protocols for targeted exams were dose is matched to indication/reason for exam; i.e. extremities or head) *Use of iterative reconstruction technique. DLP: 1323 mGy-cm. FINDINGS: CT HEAD: Ventricles and sulci are normal. There is no evidence of acute intracranial hemorrhage, midline shift, mass effect, acute territorial infarction or abnormal extra-axial fluid collection. No significant abnormal parenchymal attenuation is noted. No acute fracture of the osseous calvarium. The paranasal sinuses and mastoid air cells are well aerated. No significant calvarial soft tissue hematoma is noted. There is somewhat prominent ill-defined soft tissue in the subcutaneous fat at the skull base and at the craniocervical junction posteriorly which is a stable finding compared to previous CT scan of 07/04/2020. CT CERVICAL SPINE: Vertebral body heights and alignment are maintained. The posterior elements are intact and in normal alignment. Atlantoaxial and atlantooccipital alignments are maintained. There is fzhcgygm-oj-wtkjbb narrowing of the C3-C4 disc space with small endplate osteophytes. Bilateral atwkvoib-zd-slsfvp neural foraminal stenosis is noted, right greater than left. Moderate disc space narrowing is noted at C5-C6 with the small marginal endplate osteophytes and with moderate bilateral neural foraminal stenosis. No evidence of tight central canal stenosis. Atlantoaxial and atlantooccipital alignments are maintained. No evidence of prevertebral soft tissue swelling. The airway is patent. No focal thyroid nodule. Visualized lung apices are unremarkable. CT/CT cervical spine wo con IMPRESSION: 1. No evidence of acute intracranial abnormality. Specifically, there is no evidence of acute intracranial hemorrhage or acute fracture of the osseous calvarium. 2. No evidence of acute fracture or traumatic subluxation in the cervical spine. Straightening of the cervical spine is likely related to muscle spasm or positioning of the patient. Cervical spondylosis, most prominent at C3-C4 and C5-C6 with bilateral menxdvyy-oi-twyofu neural foraminal stenosis. Findings were discussed with KIM Lewis on 10/26/2021 at the time of the initial review.
[2021-10-26 17:31] VITALS: BP 92/52; PULSE 108; RESP 20; TEMP 37.1; O2SAT 97; BMI 24.3
[2021-10-26 18:00] VITALS: BP 101/57; PULSE 101; RESP 16; TEMP 36.6; O2SAT 98
--- NOTE | 2021-10-26 18:16 | ED_ITS ---
HPI - Overdose General Chief Complaint: Overdose Stated Complaint: ?OD Time Seen by Provider: 10/26/21 18:09 Source: patient and EMS Mode of arrival: EMS Limitations: other (poor historian) History of Present Illness HPI Narrative: This is a 55-year-old male history of hypertension, obstructive sleep apnea, diabetes, heroin abuse presenting to the emergency department for erratic behavior, suspected opiate overdose. Patient was brought in by EMS who tells us that he was hanging on a street sign an laying on the floor in the streets with a retic behavior. Patient tells me he had an argument with somebody and his family at home and he was trying to sleep in the streets. When I asked him if he used any drugs he tells me now. He tells me he is nervous and overwhelmed. When I asked him if he fell and hit his head he tells me he did. Patient also denied substance abuse to EMS however they did give him Narcan with relief because initially was minimally responsive. Patient poor historian unable to answer all my questions. Placed in a cervical collar out of precaution, initially patient walking around and wanting to leave I convinced patient to stay for further evaluation. Patient not cooperative with ROS or history taking Related Data Previous Rx's Medication Instructions Recorded aspirin 81 mg chewable tablet 81 mg PO DAILY #30 tabs 07/06/20 atorvastatin 80 mg tablet 80 mg PO BEDTIME #30 tabs 07/06/20 clonidine HCl 0.1 mg tablet 0.2 mg PO BID #60 tabs 07/06/20 insulin aspar prot-insulin aspart 44 unit (0.44 mL) subcut BID #15 mL 07/06/20 100 unit/mL (70-30) subcutaneous pen (Novolog Mix 70-30FlexPen U-100) lisinopril 40 mg tablet 40 mg PO DAILY #30 tabs 07/06/20 metoprolol tartrate 100 mg tablet 100 mg PO BID #60 tabs 07/06/20 omeprazole magnesium 20 mg 20 mg PO DAILY #30 tabs 07/06/20 tablet,delayed release (Prilosec OTC) Allergies Allergy/AdvReac Type Severity Reaction Status Date / Time No Known Allergies Allergy Unverified 07/03/20 23:00 Review of Systems Review of Systems: Yes Unobtainable due to mental status PMFSH Past Medical History Attestation statement: The following information was validated with the patient. Source: old records reviewed and nursing notes reviewed Medical History Alcohol withdrawal Essential hypertension Heroin abuse Type 2 diabetes mellitus with unspecified complications Social History Social History Household Members: Family Household Members Other:: mother Housing: Condominium Do you presently have visiting nurse or other home services: No Alcohol intake: unknown Substance Use Type: Heroin Advance Directives: No Advance Directives Information Provided: Yes service: No Current occupational status: unemployed Physical Exam Vital Signs: Vital Signs: Last Vital Signs Temp 97.4 F 10/26/21 20:00 Pulse 72 10/26/21 20:00 Resp 16 10/26/21 20:00 BP 129/65 10/26/21 20:00 Pulse Ox 98 10/26/21 20:00 O2 Del Method 10/26/21 20:00 BMI result Body Mass Index 24.3 Patient with a slightly low pressure, slightly tachycardic however stable vital signs. Appearance: Alert.? Oriented X3.? No acute distress.? Head: Normocephalic, atraumatic, no step-offs or deformities Eyes: Pupils equal, round and reactive to light.? Bilateral pupils pinpoint. ENT: Pharynx normal.? Neck: Normal inspection.? Neck supple.? CVS: Normal heart rate and rhythm.? Pulses normal.? Respiratory: No respiratory distress.? Breath sounds normal.? Abdomen: Soft and nontender.? Skin: Skin warm and dry.? Normal skin color.? Normal skin turgor.? Back: No midline tenderness, no C-spine tenderness, full range of motion, no CVA tenderness bilaterally Neuro: Oriented X 3.? No motor deficit.? No sensory deficit. CN 2-12 intact Course Reevaluation(s) Reevaluation #1: CBC with slight leukocytosis, chemistry hemolyzed will try to re-obtain. Troponin elevated 64.[address] elevations, no signs of acute ischemia. Will repeat troponin in [address] of the head and cervical spine without acute findings. Ethanol, UA, urine toxicology, CT of the abdomen, chest pending at this time. Time: 19:55 Reevaluation #2: Hyper K noted, given lokelma, calcium gluconate, insulin, D50. CT of the chest, abdomen and pelvis with no acute findings. Time: 21:53 Reevaluation #3: Reaching out to nephrology at this time. Time: 22:06 Additional Reevaluation(s): [address] Lopez about this case, recommends repeat labs in 6-7 hours, renee which has been ordered and nephro will follow. Will TT Dr. Lopez w/ urine results and tox. MDM - Overdose MDM Narrative Medical decision making narrative: 1814 55 yo m presents with a erratic behavior and suspected opiate overdose. Patient poor historian. On exam he is alert and oriented x3 however appears to be under the influence of drugs. Bilateral pupils are pinpoint. Intermittently following commands. Regular rate and rhythm. Lungs clear. Patient urinating on floor GCS-15 Plan at this time is to obtain a head CT, cervical spine CT. Obtain basic labs, chest x-ray. Medical Records Attestation: I reviewed the patient's medical records. Lab Data Attestation: I reviewed the patient's lab results. Result diagrams: 10/26/21 19:08 10/26/21 20:03 Labs: Lab Results 10/26/21 10/26/21 10/26/21 Range/Units 19:08 19:08 20:03 WBC 12.0 H (4.8-10.8) X10*3/uL RBC 4.89 (4.60-5.80) X10*6/uL Hgb 13.4 L (14.0-18.0) g/dl Hct 41.2 L (42.0-52.0) % MCV 84.3 (80.0-98.0) fL MCH 27.4 (27.0-33.0) pg MCHC 32.5 (31.0-36.0) g/dl RDW 13.3 (11.0-16.0) % Plt Count 278 (160-400) X10*3/uL MPV 10.8 (9.4-12.4) fL Immature Gran % (Auto) 0.3 (0.0-0.4) % Neut % (Auto) 83.7 H (45-73) % Lymph % (Auto) 10.2 L (20-40) % [place] % (Auto) 5.5 (2-11) % Eos % (Auto) 0.2 (0-4) % Baso % (Auto) 0.1 (0-2) % Lymph # (Auto) 1.2 (1.2-4.9) X10*3/uL [place] # (Auto) 0.7 (0.1-1.2) X10*3/uL Eos # (Auto) 0.0 (0.0-0.4) X10*3/uL Baso # (Auto) 0.0 (0.0-0.2) X10*3/uL Abs Immat Gran (auto) 0.04 H (0.00-0.03) X10*3/uL Absolute Neuts (auto) 10.1 H (2.0-8.3) x10*3/uL Absolute Nucleated RBC 0.000 (0.0-0.012) X10*3/uL Nucleated RBC % (auto) 0.0 (0.0-0.2) /100WBC Sodium 139 (135-145) mmol/L Potassium 6.3 H* D (3.3-5.1) mmol/L Chloride 93 L (96-108) mmol/L Carbon Dioxide 20 L (22-29) mmol/L Anion Gap 32 H (12-20) BUN 119 H (9-16) mg/dL Creatinine 17.80 H* (0.5-1.4) mg/dL Estim Creat Clear Calc 4.7 Estimated GFR 3 Random Glucose 180 H (60-115) mg/dL Calcium 9.5 (8.4-10.2) mg/dL Total Bilirubin 0.7 (0.0-1.0) mg/dL AST 17 D (5-37) U/L ALT 20 (0-40) U/L Alkaline Phosphatase 106 (39-117) U/L Total Creatine Kinase 1099 H (38-174) U/L Troponin I High Sens 64.8 H (<3.5-35.0) ng/L B-Natriuretic Peptide (<100) pg/mL Total Protein 8.1 H (6.5-8.0) g/dL Albumin 4.8 (3.5-5.0) g/dL Ethyl Alcohol < 10 mg/dL 10/26/21 Range/Units 21:49 WBC (4.8-10.8) X10*3/uL RBC (4.60-5.80) X10*6/uL Hgb (14.0-18.0) g/dl Hct (42.0-52.0) % MCV (80.0-98.0) fL MCH (27.0-33.0) pg MCHC (31.0-36.0) g/dl RDW (11.0-16.0) % Plt Count (160-400) X10*3/uL MPV (9.4-12.4) fL Immature Gran % (Auto) (0.0-0.4) % Neut % (Auto) (45-73) % Lymph % (Auto) (20-40) % [place] % (Auto) (2-11) % Eos % (Auto) (0-4) % Baso % (Auto) (0-2) % Lymph # (Auto) (1.2-4.9) X10*3/uL [place] # (Auto) (0.1-1.2) X10*3/uL Eos # (Auto) (0.0-0.4) X10*3/uL Baso # (Auto) (0.0-0.2) X10*3/uL Abs Immat Gran (auto) (0.00-0.03) X10*3/uL Absolute Neuts (auto) (2.0-8.3) x10*3/uL Absolute Nucleated RBC (0.0-0.012) X10*3/uL Nucleated RBC % (auto) (0.0-0.2) /100WBC Sodium (135-145) mmol/L Potassium (3.3-5.1) mmol/L Chloride (96-108) mmol/L Carbon Dioxide (22-29) mmol/L Anion Gap (12-20) BUN (9-16) mg/dL Creatinine (0.5-1.4) mg/dL Estim Creat Clear Calc Estimated GFR Random Glucose (60-115) mg/dL Calcium (8.4-10.2) mg/dL Total Bilirubin (0.0-1.0) mg/dL AST (5-37) U/L ALT (0-40) U/L Alkaline Phosphatase (39-117) U/L Total Creatine Kinase (38-174) U/L Troponin I High Sens 57.7 H (<3.5-35.0) ng/L B-Natriuretic Peptide < 10 (<100) pg/mL Total Protein (6.5-8.0) g/dL Albumin (3.5-5.0) g/dL Ethyl Alcohol mg/dL ECG Data Attestation: I personally reviewed and interpreted this ECG as follows: ECG interpretation date: 10/26/21 ECG interpretation time: 21:54 Prior ECG tracings: available for review Interpretation: Ventricular rate of 89, SD normal, QRS normal, QT/QTC normal. EKG with normal sinus rhythm no ST elevations or inversions concerning for ischemia. When compared to EKG from June 2020 QT has shortened. Critical Care Time Critical Care Time Critical Care Time: No Discharge Plan Discharge Clinical Impression: Rhabdomyolysis, Substance abuse, BLAYNE (acute kidney injury), Acute hyperkalemia Patient Disposition: Admitted As Inpatient
--- NOTE | 2021-10-26 18:47 | PC.NURSE ---
stiff neck collar placed on pt per provider order, pt cooperative and explained w medical interpreter.
--- NOTE | 2021-10-26 18:56 | ECG_ITS ---
Test Reason : FRACTURE Blood Pressure : / mmHG Vent. Rate : 089 BPM Atrial Rate : 089 BPM P-R Int : 122 ms QRS Dur : 086 ms QT Int : 346 ms P-R-T Axes : 058 083 060 degrees QTc Int : 420 ms Normal sinus rhythm Normal ECG When compared with ECG of 04-JUL-2020 00:58, QT has shortened Referred By: Kelsey Chowdary Electronically Signed By:EPI WHEELER MD
[2021-10-26 19:11] VITALS: BP 179/86; PULSE 86; RESP 16; TEMP 36.6; O2SAT 98
[2021-10-26 19:12] LABS: MANUAL DIFF FLAG NO
[2021-10-26 19:16] LABS: Basophils Percent Auto 0.1 % (0-2); Eosinophils Percent Auto 0.2 % (0-4); Hematocrit 41.2 % (42.0-52.0); Hemoglobin 13.4 g/dl (14.0-18.0); Imm Gran Abs Auto 0.04 X10*3/uL (0.00-0.03); Imm Gran Pct Auto 0.3 % (0.0-0.4); Lymphocytes Absolute Auto 1.2 X10*3/uL (1.2-4.9); Lymphocytes Percent Auto 10.2 % (20-40); Mean Corpuscular HGB Conc 32.5 g/dl (31.0-36.0); Mean Corpuscular Hemoglobin 27.4 pg (27.0-33.0); Mean Corpuscular Volume 84.3 fL (80.0-98.0); Mean Platelet Volume 10.8 fL (9.4-12.4); Monocytes Absolute Auto 0.7 X10*3/uL (0.1-1.2); Monocytes Percent Auto 5.5 % (2-11); Neutrophils Absolute Auto 10.1 x10*3/uL (2.0-8.3); Neutrophils Percent Auto 83.7 % (45-73); Platelet Count 278 X10*3/uL (160-400); Red Blood Count 4.89 X10*6/uL (4.60-5.80); Red Cell Distribution Width 13.3 % (11.0-16.0)
--- NOTE | 2021-10-26 19:28 | PC.NURSE ---
This RN took over care for the pt at 1900. Pt had c-collar applied. CSM present in all 4 extremities. Skin is warm, pink and dry with strong peripheral pulses. Pt reports nausea ad chest pain. Pt breathing normally and all circulation appears appropriate. Pt is lao speaking only, family member at bedside to assist in translation. Waiting to hear about disposition from provider.
[2021-10-26 19:48] LABS: Troponin-I High Sensitivity 64.8 ng/L (<3.5-35.0)
[2021-10-26 20:00] VITALS: BP 129/65; PULSE 72; RESP 16; TEMP 36.3; O2SAT 98
--- NOTE | 2021-10-26 20:27 | PC.NURSE ---
Provider d/c'd and removed c-collar
[2021-10-26 20:40] LABS: Alanine Aminotransferase 20 U/L (0-40); Albumin Level 4.8 g/dL (3.5-5.0); Alkaline Phosphatase 106 U/L (39-117); Anion Gap 32 (12-20); Aspartate Amino Transferase 17 U/L (5-37); Bilirubin Total 0.7 mg/dL (0.0-1.0); Blood Urea Nitrogen 119 mg/dL (9-16); Calcium 9.5 mg/dL (8.4-10.2); Carbon Dioxide 20 mmol/L (22-29); Chloride 93 mmol/L (96-108); Creatinine Clr Calc Pharmacy 4.7; Estimated Glomerular Filt Rate 3; Ethanol < 10 mg/dL; Glucose Random 180 mg/dL (60-115); Potassium 6.3 mmol/L (3.3-5.1); Sodium 139 mmol/L (135-145); Total Protein 8.1 g/dL (6.5-8.0)
--- NOTE | 2021-10-26 20:48 | PC.NURSE ---
Report given to CONSUELO Howard to move to ED15.
[2021-10-26] MEDS: 0.9 % Sodium Chloride 1,000 ML 999 ML IV ×2 (21:00→21:04)
[2021-10-26] MEDS: Sodium Zirconium Cyclosilicate 10 GM POWD.PACK PO (21:04)
--- NOTE | 2021-10-26 22:00 | P.HPHOSP_ITS ---
History of Present Illness Date of Service: 10/26/21 Chief Complaint: confusion 55 with a past medical history of hypertension, hyperlipidemia, diabetes, BREE, polysubstance abuse, heroin abuse presented to the hospital today with a chief complaint of Confusion. Patient was found on the streets with diabetic behavior. Patient no was noted to have pinpoint pupils; subsequently Narcan was given with improvement in his mental status. Patient also reported fall/head strike. Denies any headaches, numbness tingling, neck pain back pain, hip pains. Denies any loss of consciousness. Patient denied any chest pain or palpitations. Patient denies any fever chills cough, GI symptoms. Review of all other systems is negative except mentioned above ER course: Per ER team patient on initial presentation noted to be erratic, given Narcan. Improvement in mental status. Patient currently oriented x3. Patient had CT head, CT neck, CT chest and CT abdomen pelvis done which showed no acute find ings arm. On labs noted to have hyperkalemia -no EKG changes; given insulin, dextrose, Lokelma. Patient also received 2 L of IV fluids. On blood chemistry patient noted to have renal insufficiency with creatinine of 17 compared to baseline of 1. Serum bicarb of 20. Nephrology was notified. Admitted to the hospital for further management. FOR[facility] Medical History Alcohol withdrawal Essential hypertension Heroin abuse Type 2 diabetes mellitus with unspecified complications Pertinent family history: reviewed Social History Household Members: None Household Members Other:: mother Housing: Homeless Do you presently have visiting nurse or other home services: No Alcohol intake: unknown Patient Tobacco Use Status: Never used Tobacco Second Hand Smoke Exposure: No Substance Use Type: Heroin service: No Current occupational status: unemployed Meds Allergies Allergy/AdvReac Type Severity Reaction Status Date / Time No Known Allergies Allergy Unverified 07/03/20 23:00 Active Medications: Current Medications Calcium Gluconate (Calcium Gluconate) 1 gm in 50 mls @ 50 mls/hr IV ONCE ONE Stop: 10/26/21 22:48 Sodium Chloride (0.9 % Sodium Chloride Flush 3 Ml Syringe) 3 ml IVFLUSH [facility] Medications Medication Instructions Recorded Confirmed Last Taken Type acetaminophen 325 mg tablet 2 tab PO Q6H PRN pain 10/27/21 10/27/21 Unknown History aspirin 81 mg tablet,delayed 1 tab PO QAM 10/27/21 10/27/21 Unknown History release buprenorphine 8 mg-naloxone 2 mg 2.5 strip sublingual DAILY 10/27/21 10/27/21 Unknown History sublingual film (Suboxone) clonidine HCl 0.2 mg tablet 1 tab PO 1XD 10/27/21 10/27/21 Unknown History fluticasone 250 mcg-salmeterol 50 1 puff PO 2XD 10/27/21 10/27/21 Unknown History mcg/dose blistr powdr for inhalation (Advair Diskus) insulin degludec 100 unit/mL (3 30 unit subcut DAILY 10/27/21 10/27/21 Unknown History mL) subcutaneous pen (Tresiba FlexTouch U-100 insulin) loratadine 10 mg tablet 1 tab PO DAILY PRN Allergy Symptoms 10/27/21 10/27/21 Unknown History semaglutide 14 mg tablet (Rybelsus) 1 tab PO QAM 10/27/21 10/27/21 Unknown History zolpidem 10 mg tablet 1 tab PO BEDTIME 10/27/21 10/27/21 Unknown History Physical Exam Vital Signs and Narrative: Vital Signs: Last Vital Signs Temp 97.4 F 10/26/21 20:00 Pulse 72 10/26/21 20:00 Resp 16 10/26/21 20:00 BP 129/65 10/26/21 20:00 Pulse Ox 98 10/26/21 20:00 O2 Del Method 10/26/21 20:00 BMI result Body Mass Index 24.3 Gen: Appears be in no acute distress HEENT: NCAT, dry mucosa. Pulmonary: Vesicular breath sounds, fair air entry CVS: Normal S1-S2 Abdomen: BS+, Soft, Nontender Extremities: Warm well perfused Neuro: Alert and awake. grossly nonfocal Results Labs CBC and Chem 7: 10/29/21 05:40 10/29/21 05:40 Labs: Laboratory Results - last 24 hr 10/26/21 10/26/21 19:08 20:03 MCV 84.3 MCH 27.4 MCHC 32.5 RDW 13.3 Plt Count 278 MPV 10.8 Immature Gran % (Auto) 0.3 Neut % (Auto) 83.7 H Lymph % (Auto) 10.2 L [place] % (Auto) 5.5 Eos % (Auto) 0.2 Baso % (Auto) 0.1 Lymph # (Auto) 1.2 [place] # (Auto) 0.7 Eos # (Auto) 0.0 Baso # (Auto) 0.0 Abs Immat Gran (auto) 0.04 H Absolute Neuts (auto) 10.1 H Absolute Nucleated RBC 0.000 Nucleated RBC % (auto) 0.0 Anion Gap 32 H Estim Creat Clear Calc 4.7 Estimated GFR 3 Random Glucose 180 H Calcium 9.5 Total Bilirubin 0.7 AST 17 D ALT 20 Alkaline Phosphatase 106 Total Creatine Kinase 1099 H Total Protein 8.1 H Albumin 4.8 Ethyl Alcohol < 10 Imaging Radiologist's Impressions: Impressions Chest X-Ray 10/26/21 18:24 FINDINGS/IMPRESSION: * Stable calcified granuloma in the left mid lung. Lungs appear otherwise clear. * No pneumothorax or pleural effusion. * Normal cardiomediastinal silhouette. Cervical Spine CT 10/26/21 18:40 IMPRESSION: 1. No evidence of acute intracranial abnormality. Specifically, there is no evidence of acute intracranial hemorrhage or acute fracture of the osseous calvarium. 2. No evidence of acute fracture or traumatic subluxation in the cervical spine. Straightening of the cervical spine is likely related to muscle spasm or positioning of the patient. Cervical spondylosis, most prominent at C3-C4 and C5-C6 with bilateral vxtudyvq-ot-xsqzhh neural foraminal stenosis. Findings were discussed with KIM Lewis on 10/26/2021 at the time of the initial review. Head CT 10/26/21 18:40 IMPRESSION: 1. No evidence of acute intracranial abnormality. Specifically, there is no evidence of acute intracranial hemorrhage or acute fracture of the osseous calvarium. 2. No evidence of acute fracture or traumatic subluxation in the cervical spine. Straightening of the cervical spine is likely related to muscle spasm or positioning of the patient. Cervical spondylosis, most prominent at C3-C4 and C5-C6 with bilateral vavxrzfm-qh-acvuka neural foraminal stenosis. Findings were discussed with KIM Lewis on 10/26/2021 at the time of the initial review. Abdomen/Pelvis CT 08/05/22 21:08 IMPRESSION: No acute findings within the chest, abdomen or pelvis. No fractures. Chest CT 10/26/21 21:08 IMPRESSION: No acute findings within the chest, abdomen or pelvis. No fractures. Assessment and Plan (1) BLAYNE (acute kidney injury): Status: Acute (2) Substance abuse: Status: Acute (3) Rhabdomyolysis: Status: Deleted (4) Acute hyperkalemia: Status: Acute (5) Heroin abuse: Status: Acute (6) Type 2 diabetes mellitus with unspecified complications: Status: Acute Plan 55-year-old male with a past medical history of hypertension, hyperlipidemia, diabetes, polysubstance abuse, BREE presented to the hospital with a chief complaint of confusion. Confusion: Likely in the setting of drug abuse. U tox pending. CT head showed no acute findings. Exam nonfocal. Patient mental status improved after Narcan. Patient currently oriented x3. Supportive care. BLAYNE: Likely prerenal. Also noted to have mild elevated CPK. Patient received 2 L of IV fluids. Serum bicarb is 20. Potassium 6.3. Patient making urine currently. Nephrology was notified. No urgent dialysis recommended.Continue maintenance IV fluids. Avoid nephrotoxins. Hold home lisinopril. CT abdomen showed normal kidneys. nephrology recommended Araujo catheter for strict I's and O's. There was difficulty placing Araujo catheter, patient appears to have phimosis, urology consult. High anion gap metabolic acidosis: Likely in the setting of BLAYNE. Hyperkalemia: No EKG changes. Monitor on telemetry. Patient received insulin, dextrose, Lokelma. Will repeat BMP. polysubstance abuse: Addiction Medicine follow-up. Fall: Likely mechanical in nature. Imaging negative for any acute fracture. Indeterminate troponins: Likely from reduced clearance. Patient currently denies any chest pain. EKG nonischemic. Repeat troponin 57 from 64. History of diabetes: Insulin sliding scale. History of hypertension: Patient blood pressure currently on the normal side. Continue home clonidine. Hold home lisinopril. Continue metoprolol. DVT prophylaxis: Subcu heparin Code status: Full code Quality Stroke Does the patient have a stroke diagnosis?: No VTE Prior VTE?: No VTE Risk Level:: Medical - moderate - high VTE Device Contraindication: Treatment Not Indicated VTE Drug Contraindication: N/A - Med Ordered
[2021-10-26 22:07] LABS: Glucose, Whole Blood 135 mg/dL (60-115)
[2021-10-26 22:17] LABS: Troponin-I High Sensitivity 57.7 ng/L (<3.5-35.0)
[2021-10-26] MEDS: Calcium Gluconate/NaCl,Iso-Osm 1 GM/50 ML PLAST..BAG IV (22:19)
[2021-10-26 22:30] LABS: B Type Natriuretic Peptide < 10 pg/mL (<100)
[2021-10-26] MEDS: Dextrose 50 % 25 GM/50 ML SYRINGE IVPUSH (23:14)
[2021-10-26] MEDS: Insulin Regular, Human 100 UNIT/ML 3 ML VIAL 10 UNIT IVPUSH (23:15)
[2021-10-26] MEDS: Dextrose 5 % and 0.45 % NaCl 1,000 ML 100 ML IVCONT (23:16)
[2021-10-26 23:45] LABS: COVID-19 Test Negative (Negative)
[2021-10-26 23:58] VITALS: BP 184/80; PULSE 97; RESP 18; TEMP 36.8; O2SAT 99
[2021-10-27 00:12] LABS: Appearance Urine CLEAR; Color Urine YELLOW; Glucose Urine UA 100 MG/DL (NEG); Leukocyte Esterase Urine NEG (NEG); Nitrite Urine NEG (NEG); PH 5.5 (5.0-8.0); Specific Gravity - Urine >= 1.030 (1.005-1.025); UACC Culture Trigger NO; Urine Blood 2+ (NEG); Urine Ketones NEG (NEG); Urine Protein 1+ MG/DL (NEG-TRACE)
[2021-10-27] MEDS: Heparin Sodium,Porcine 5,000 UNIT/ML VIAL 5000 UNIT SUBCUT ×3 (00:16→20:43)
[2021-10-27] MEDS: Famotidine/PF 20 MG/2 ML VIAL IVPUSH (00:16)
[2021-10-27 00:22] LABS: Bacteria Urine 2+ /LPF; Mucus Urine 2+ /LPF; Squamous Epithelial Cell Urine 1+ /LPF
[2021-10-27 00:29] LABS: Amphetamine Screen Urine Not Detected (Not Detect); Barbiturates, Urine Not Detected (Not Detect); Benzodiazepines Screen Urine Not Detected (Not Detect); Cannabinoid Screen Urine Not Detected (Not Detect); Cocaine Screen Urine Not Detected (Not Detect); Fentanyl, urine POSITIVE (Not Detect); Opiate Screen Urine POSITIVE (Not Detect); Phencyclidine Screen Urine Not Detected (Not Detect)
[2021-10-27 01:16] LABS: MANUAL DIFF FLAG NO
[2021-10-27 01:20] LABS: Basophils Percent Auto 0.2 % (0-2); Eosinophils Percent Auto 0.3 % (0-4); Hemoglobin 11.8 g/dl (14.0-18.0); Imm Gran Abs Auto 0.04 X10*3/uL (0.00-0.03); Imm Gran Pct Auto 0.3 % (0.0-0.4); Lymphocytes Absolute Auto 2.2 X10*3/uL (1.2-4.9); Lymphocytes Percent Auto 19.2 % (20-40); Mean Corpuscular HGB Conc 31.9 g/dl (31.0-36.0); Mean Corpuscular Hemoglobin 27.1 pg (27.0-33.0); Mean Corpuscular Volume 84.9 fL (80.0-98.0); Mean Platelet Volume 10.2 fL (9.4-12.4); Monocytes Absolute Auto 0.8 X10*3/uL (0.1-1.2); Neutrophils Absolute Auto 8.4 x10*3/uL (2.0-8.3); Platelet Count 235 X10*3/uL (160-400); Red Blood Count 4.36 X10*6/uL (4.60-5.80); Red Cell Distribution Width 13.3 % (11.0-16.0); White Blood Count 11.6 X10*3/uL (4.8-10.8)
[2021-10-27] MEDS: HYDROmorphone HCl 0.5 MG/0.5 ML SYRINGE IVPUSH (01:30)
[2021-10-27] MEDS: Lidocaine HCl 2 % Urojet 10 ML JEL.PF.APP TOPICAL (01:39)
--- NOTE | 2021-10-27 01:40 | PC.NURSE ---
Multiple unsuccessful attempts to place renee cath, this RN, Isatu RN and Iqra ALVAREZ attempted to place renee cath unsuccessful, Pt given Diluadid for pain, see MAR>
[2021-10-27 01:46] LABS: Alanine Aminotransferase 31 U/L (0-40); Albumin Level 4.2 g/dL (3.5-5.0); Alkaline Phosphatase 118 U/L (39-117); Anion Gap 28 (12-20); Aspartate Amino Transferase 40 U/L (5-37); Bilirubin Total 0.6 mg/dL (0.0-1.0); Blood Urea Nitrogen 113 mg/dL (9-16); Calcium 8.5 mg/dL (8.4-10.2); Carbon Dioxide 16 mmol/L (22-29); Chloride 103 mmol/L (96-108); Creatinine Clr Calc Pharmacy 5.6; Estimated Glomerular Filt Rate 3; Glucose Random 62 mg/dL (60-115); Potassium 4.6 mmol/L (3.3-5.1); Sodium 142 mmol/L (135-145); Total Protein 7.1 g/dL (6.5-8.0)
[2021-10-27 06:47] VITALS: BP 178/81; PULSE 74; RESP 12; TEMP 36.4; O2SAT 100
[2021-10-27 07:11] LABS: Glucose, Whole Blood 162 mg/dL (60-115)
[2021-10-27 07:40] LABS: Anion Gap 26 (12-20); Blood Urea Nitrogen 105 mg/dL (9-16); Calcium 8.2 mg/dL (8.4-10.2); Carbon Dioxide 13 mmol/L (22-29); Chloride 106 mmol/L (96-108); Creatinine Clr Calc Pharmacy 6.7; Estimated Glomerular Filt Rate 4; Glucose Random 181 mg/dL (60-115); Potassium 5.4 mmol/L (3.3-5.1); Sodium 140 mmol/L (135-145)
[2021-10-27 08:27] LABS: Basophils Percent Auto 0.1 % (0-2); Eosinophils Percent Auto 0.4 % (0-4); Hematocrit 33.5 % (42.0-52.0); Imm Gran Abs Auto 0.03 X10*3/uL (0.00-0.03); Imm Gran Pct Auto 0.3 % (0.0-0.4); Lymphocytes Absolute Auto 1.6 X10*3/uL (1.2-4.9); Lymphocytes Percent Auto 14.9 % (20-40); Mean Corpuscular HGB Conc 32.8 g/dl (31.0-36.0); Mean Corpuscular Hemoglobin 27.8 pg (27.0-33.0); Mean Corpuscular Volume 84.8 fL (80.0-98.0); Mean Platelet Volume 10.5 fL (9.4-12.4); Monocytes Absolute Auto 0.8 X10*3/uL (0.1-1.2); Monocytes Percent Auto 7.4 % (2-11); Neutrophils Absolute Auto 8.5 x10*3/uL (2.0-8.3); Neutrophils Percent Auto 76.9 % (45-73); Platelet Count 212 X10*3/uL (160-400); Red Blood Count 3.95 X10*6/uL (4.60-5.80); Red Cell Distribution Width 13.2 % (11.0-16.0)
[2021-10-27] MEDS: cloNIDine HCL 0.2 MG TABLET PO (09:45)
[2021-10-27] MEDS: Aspirin Enteric Coated 81 MG TABLET.DR PO (09:45)
[2021-10-27] MEDS: Metoprolol Tartrate 100 MG TABLET PO ×2 (09:45→20:45)
[2021-10-27] MEDS: Buprenorphine/Naloxone 4/1 mg FILM 1 FILM SUBLINGUAL (09:45)
[2021-10-27] MEDS: Buprenorphine/Naloxone 8/2 mg FILM 2 FILM SUBLINGUAL (09:45)
[2021-10-27] MEDS: amLODIPine Besylate 5 MG TABLET PO (09:45)
[2021-10-27] MEDS: Sodium Bicarbonate 8.4% 150 MEQ in Dextrose 5 % 850 ML 100 MEQ IV ×2 (09:46→21:08)
--- NOTE | 2021-10-27 11:53 | P.PNIM_ITS ---
Subjective Subjective Date of Service: 10/27/21 Interval History: cc: weakness interval history: feels better Cardiovascular Cardiovascular: Reports no additional cardiovascular complaints Respiratory Respiratory: Reports no additional respiratory complaints Physical Exam Vital Signs: Vital Signs: Last Vital Signs Temp 97.6 F 10/27/21 06:47 Pulse 74 10/27/21 06:47 Resp 12 10/27/21 06:47 BP 178/81 H 10/27/21 06:47 Pulse Ox 100 10/27/21 06:47 O2 Del Method 10/27/21 06:47 BMI result Body Mass Index 24.3 General: AO X 3, no acute distress Resp: CTA bilateral, no accessory muscles used CVS: S1,S2,RRR GI: soft, non tender, non distended Neuro: motor grossly intact, alert Psych: appropriate affect, appropriate insight Objective Data Active Medications Acetaminophen (Acetaminophen 325 Mg Tablet) 650 mg PO Q6H PRN PRN Reason: Pain, Mild (Pain Scale 1-3) Amlodipine Besylate (Amlodipine Besylate 5 Mg Tablet) 5 mg PO DAILY [facility]; Protocol Last Admin: 10/27/21 09:45 Dose: 5 mg Documented By: CHRISTIE Aspirin (Aspirin Enteric Coated 81 Mg Tablet.) 81 mg PO DAILY [facility] Last Admin: 10/27/21 09:45 Dose: 81 mg Documented By: CHRISTIE Atorvastatin Calcium (Atorvastatin Calcium 80 Mg Tablet) 80 mg PO BEDTIME [facility] Buprenorphine/Naloxone (Buprenorphine/Naloxone 8/2 Mg Film) 2 film SUBLINGUAL DAILY [facility] Last Admin: 10/27/21 09:45 Dose: 2 film Documented By: CHRISTIE Buprenorphine/Naloxone (Buprenorphine/Naloxone 4/1 Mg Film) 1 film SUBLINGUAL DAILY [facility] Last Admin: 10/27/21 09:45 Dose: 1 film Documented By: CHRISTIE Clonidine HCl (Clonidine Hcl 0.2 Mg Tablet) 0.2 mg PO DAILY [facility]; Protocol Last Admin: 10/27/21 09:45 Dose: 0.2 mg Documented By: CHRISTIE Dextrose (Dextrose 50 % 25 Gm/50 Ml Syringe) 25 gm IVPUSH Q15M PRN; Protocol PRN Reason: per Hypoglycemia Standing Ord. Fluticasone/Vilanterol (Fluticasone/Vilanterol 100/25 Blst.W.Dev) 1 puff INHALE RDAILY [facility] Glucose (Glucose Gel 15 Gm Gel..Gram.) 15 gm PO Q15M PRN; Protocol PRN Reason: per Hypoglycemia Standing Ord. Heparin Sodium (Porcine) (Heparin Sodium,Porcine 5,000 Unit/Ml Vial) 5,000 unit SUBCUT Q8H [facility] Last Admin: 10/27/21 06:30 Dose: Not Given Documented By: CLARISSA Non-Admin Reason: Patient Refused Hydromorphone HCl (Hydromorphone Hcl 0.5 Mg/0.5 Ml Syringe) 0.5 mg IVPUSH Q4H PRN; Protocol PRN Reason: Breakthrough Pain Last Admin: 10/27/21 01:30 Dose: 0.5 mg Documented By: CLARISSA Sodium Bicarbonate 150 meq/ (Dextrose) 1,000 mls @ 100 mls/hr IV .Q10H [facility] Last Admin: 10/27/21 09:46 Dose: 100 mls/hr Documented By: CHRISTIE Insulin Human Lispro (Insulin Lispro 100 Unit/Ml 3 Ml Vial) 0 unit SUBCUT QIDACHS [facility]; Protocol Last Admin: 10/27/21 07:40 Dose: Not Given Documented By: CHRISTIE Non-Admin Reason: No Insulin Coverage Loratadine (Loratadine 10 Mg Tablet) 10 mg PO DAILY PRN PRN Reason: Allergy Symptoms Metoprolol Tartrate (Metoprolol Tartrate 100 Mg Tablet) 100 mg PO BID [facility]; Protocol Last Admin: 10/27/21 09:45 Dose: 100 mg Documented By: CHRISTIE Pharmacy Consult (Consult Rx Perform Med Rec) 1 each MISCELLANE ONCE PRN PRN Reason: Consult order Senna (Sennosides 8.6 Mg Tablet) 17.2 mg PO BEDTIME PRN PRN Reason: Constipation Sodium Chloride (0.9 % Sodium Chloride Flush 3 Ml Syringe) 3 ml IVFLUSH QSHIFT [facility] Last Admin: 10/27/21 07:10 Dose: Not Given Documented By: CHRISTIE Non-Admin Reason: Med Not Available Labs CBC & Chem 7: 10/27/21 08:15 10/27/21 07:04 Labs: Laboratory Results - last 24 hr 10/26/21 10/26/21 10/26/21 19:08 20:03 21:49 MCV 84.3 MCH 27.4 MCHC 32.5 RDW 13.3 Plt Count 278 MPV 10.8 Immature Gran % (Auto) 0.3 Neut % (Auto) 83.7 H Lymph % (Auto) 10.2 L [place] % (Auto) 5.5 Eos % (Auto) 0.2 Baso % (Auto) 0.1 Lymph # (Auto) 1.2 [place] # (Auto) 0.7 Eos # (Auto) 0.0 Baso # (Auto) 0.0 Abs Immat Gran (auto) 0.04 H Absolute Neuts (auto) 10.1 H Absolute Nucleated RBC 0.000 Nucleated RBC % (auto) 0.0 Anion Gap 32 H Estim Creat Clear Calc 4.7 Estimated GFR 3 POC Glucose Random Glucose 180 H Calcium 9.5 Total Bilirubin 0.7 AST 17 D ALT 20 Alkaline Phosphatase 106 Total Creatine Kinase 1099 H B-Natriuretic Peptide < 10 Total Protein 8.1 H Albumin 4.8 Urine Color Urine Appearance Urine pH Ur Specific [place] Urine Protein Urine Glucose (UA) Urine Ketones Urine Blood Urine Nitrite Ur Leukocyte Esterase Urine RBC Urine WBC Ur Squamous Epith Cells Urine Bacteria Hyaline Casts Granular Casts Urine Mucus Ur Random Sodium Urine Opiates Screen Urine Fentanyl Screen Ur Barbiturates Screen Ur Phencyclidine Scrn Ur Amphetamines Screen U Benzodiazepines Scrn Urine Cocaine Screen U Marijuana (THC) Screen Ethyl Alcohol < 10 COVID-19 ([facility]) COVID-19 Clin Com 10/26/21 10/26/21 10/27/21 22:02 23:25 00:00 MCV MCH MCHC RDW Plt Count MPV Immature Gran % (Auto) Neut % (Auto) Lymph % (Auto) [place] % (Auto) Eos % (Auto) Baso % (Auto) Lymph # (Auto) [place] # (Auto) Eos # (Auto) Baso # (Auto) Abs Immat Gran (auto) Absolute Neuts (auto) Absolute Nucleated RBC Nucleated RBC % (auto) Anion Gap Estim Creat Clear Calc Estimated GFR POC Glucose 135 H Random Glucose Calcium Total Bilirubin AST ALT Alkaline Phosphatase Total Creatine Kinase B-Natriuretic Peptide Total Protein Albumin Urine Color Urine Appearance Urine pH Ur Specific [place] Urine Protein Urine Glucose (UA) Urine Ketones Urine Blood Urine Nitrite Ur Leukocyte Esterase Urine RBC Urine WBC Ur Squamous Epith Cells Urine Bacteria Hyaline Casts Granular Casts Urine Mucus Ur Random Sodium 38.0 Urine Opiates Screen Urine Fentanyl Screen Ur Barbiturates Screen Ur Phencyclidine Scrn Ur Amphetamines Screen U Benzodiazepines Scrn Urine Cocaine Screen U Marijuana (THC) Screen Ethyl Alcohol COVID-19 ([facility]) Negative COVID-19 [employer] Com See Note 10/27/21 10/27/21 10/27/21 00:00 00:00 01:10 MCV 84.9 MCH 27.1 MCHC 31.9 RDW 13.3 Plt Count 235 MPV 10.2 Immature Gran % (Auto) 0.3 Neut % (Auto) 73.0 Lymph % (Auto) 19.2 L [place] % (Auto) 7.0 Eos % (Auto) 0.3 Baso % (Auto) 0.2 Lymph # (Auto) 2.2 [place] # (Auto) 0.8 Eos # (Auto) 0.0 Baso # (Auto) 0.0 Abs Immat Gran (auto) 0.04 H Absolute Neuts (auto) 8.4 H Absolute Nucleated RBC 0.000 Nucleated RBC % (auto) 0.0 Anion Gap Estim Creat Clear Calc Estimated GFR POC Glucose Random Glucose Calcium Total Bilirubin AST ALT Alkaline Phosphatase Total Creatine Kinase B-Natriuretic Peptide Total Protein Albumin Urine Color YELLOW Urine Appearance CLEAR Urine pH 5.5 Ur Specific [place] >= 1.030 H Urine Protein 1+ H Urine Glucose (UA) 100 H Urine Ketones NEG Urine Blood 2+ H Urine Nitrite NEG Ur Leukocyte Esterase NEG Urine RBC 1-4 Urine WBC 1-4 Ur Squamous Epith Cells 1+ Urine Bacteria 2+ Hyaline Casts 1-4 Granular Casts 1-4 Urine Mucus 2+ Ur Random Sodium Urine Opiates Screen POSITIVE H Urine Fentanyl Screen POSITIVE H Ur Barbiturates Screen Not Detected Ur Phencyclidine Scrn Not Detected Ur Amphetamines Screen Not Detected U Benzodiazepines Scrn Not Detected Urine Cocaine Screen Not Detected U Marijuana (THC) Screen Not Detected Ethyl Alcohol COVID-19 ([facility]) COVID-19 [employer] Com 10/27/21 10/27/21 10/27/21 01:10 06:55 07:04 MCV MCH MCHC RDW Plt Count MPV Immature Gran % (Auto) Neut % (Auto) Lymph % (Auto) [place] % (Auto) Eos % (Auto) Baso % (Auto) Lymph # (Auto) [place] # (Auto) Eos # (Auto) Baso # (Auto) Abs Immat Gran (auto) Absolute Neuts (auto) Absolute Nucleated RBC Nucleated RBC % (auto) Anion Gap 28 H 26 H Estim Creat Clear Calc 5.6 6.7 Estimated GFR 3 4 POC Glucose 162 H Random Glucose 62 D 181 H D Calcium 8.5 D 8.2 L Total Bilirubin 0.6 AST 40 H D ALT 31 Alkaline Phosphatase 118 H Total Creatine Kinase 940 H B-Natriuretic Peptide Total Protein 7.1 Albumin 4.2 Urine Color Urine Appearance Urine pH Ur Specific [place] Urine Protein Urine Glucose (UA) Urine Ketones Urine Blood Urine Nitrite Ur Leukocyte Esterase Urine RBC Urine WBC Ur Squamous Epith Cells Urine Bacteria Hyaline Casts Granular Casts Urine Mucus Ur Random Sodium Urine Opiates Screen Urine Fentanyl Screen Ur Barbiturates Screen Ur Phencyclidine Scrn Ur Amphetamines Screen U Benzodiazepines Scrn Urine Cocaine Screen U Marijuana (THC) Screen Ethyl Alcohol COVID-19 ([facility]) COVID-19 [employer] Com 10/27/21 08:15 MCV 84.8 MCH 27.8 MCHC 32.8 RDW 13.2 Plt Count 212 MPV 10.5 Immature Gran % (Auto) 0.3 Neut % (Auto) 76.9 H Lymph % (Auto) 14.9 L [place] % (Auto) 7.4 Eos % (Auto) 0.4 Baso % (Auto) 0.1 Lymph # (Auto) 1.6 [place] # (Auto) 0.8 Eos # (Auto) 0.0 Baso # (Auto) 0.0 Abs Immat Gran (auto) 0.03 Absolute Neuts (auto) 8.5 H Absolute Nucleated RBC 0.000 Nucleated RBC % (auto) 0.0 Anion Gap Estim Creat Clear Calc Estimated GFR POC Glucose Random Glucose Calcium Total Bilirubin AST ALT Alkaline Phosphatase Total Creatine Kinase B-Natriuretic Peptide Total Protein Albumin Urine Color Urine Appearance Urine pH Ur Specific [place] Urine Protein Urine Glucose (UA) Urine Ketones Urine Blood Urine Nitrite Ur Leukocyte Esterase Urine RBC Urine WBC Ur Squamous Epith Cells Urine Bacteria Hyaline Casts Granular Casts Urine Mucus Ur Random Sodium Urine Opiates Screen Urine Fentanyl Screen Ur Barbiturates Screen Ur Phencyclidine Scrn Ur Amphetamines Screen U Benzodiazepines Scrn Urine Cocaine Screen U Marijuana (THC) Screen Ethyl Alcohol COVID-19 ([facility]) COVID-19 Clin Com Assessment and Plan (1) BLAYNE (acute kidney injury): Status: Acute Plan 55M presented with ams, weakness metabolic encephalopathy due to BLAYNE with uremia coplicated by metabolic acidosis unclear etiology of BLAYNE, no significant rhabdo, ?due to drug use vs uncontrolled hypertension no evidence of urinary retention on CT nephro eval sodium bicarb iv monitor bmp hold talat-i htn amlodipine, clonidine, lopressor holding lisinopril for blayne hyperkalemia improved with lokelma holding talat-i monitor DM insulin opiate dependence suboxone dvt prophylaxis - hep sq full code reason for continued hospitalization:severe blayne, monitor closely for renal recovery, may need [employer]. Quality Stroke Does the patient have a stroke diagnosis?: No VTE Prior VTE?: No VTE Risk Level:: Medical - moderate - high VTE Device Contraindication: Treatment Not Indicated VTE Drug Contraindication: N/A - Med Ordered
[2021-10-27 12:28] LABS: Glucose, Whole Blood 192 mg/dL (60-115)
[2021-10-27 12:52] VITALS: BP 171/81; PULSE 73; RESP 18; TEMP 36.7; O2SAT 100
[2021-10-27 13:22] LABS: Anion Gap 23 (12-20); Blood Urea Nitrogen 96 mg/dL (9-16); Calcium 7.9 mg/dL (8.4-10.2); Carbon Dioxide 16 mmol/L (22-29); Chloride 105 mmol/L (96-108); Creatinine Clr Calc Pharmacy 8.6; Estimated Glomerular Filt Rate 6; Glucose Random 215 mg/dL (60-115); Potassium 4.5 mmol/L (3.3-5.1); Sodium 139 mmol/L (135-145)
[2021-10-27 14:03] LABS: Glucose, Whole Blood 179 mg/dL (60-115)
[2021-10-27 17:57] VITALS: BP 188/83; PULSE 65; RESP 18; TEMP 37.1; O2SAT 100
[2021-10-27 18:51] LABS: Glucose, Whole Blood 236 mg/dL (60-115)
--- NOTE | 2021-10-27 20:25 | PM.CNNEP ---
History of Present Illness Reason for Consult Consult date: 10/27/21 Reason for consult: BLAYNE Chief Complaint Chief complaint: BLAYNE History of Present Illness Narrative: 55 with a past medical history of hypertension, hyperlipidemia, diabetes, BREE, polysubstance abuse, heroin abuse who presented to [facility] ED with confusion. Patient was found on the streets with erratic behavior. Received Narcan with improvement in his mental status. Patient also admitted to fall/head strike. He tells me he thinks he was passed out for ~ 30 minutes. Patient denied any chest pain or palpitations. In the ED, U tox positive for opiates/fentanyl. Initial BUN/Cr = 119/17.8. UA showed concentrated urine with 2+ blood and minimal rbc's consistent with rhabdomyolysis. CK would later confirm this with level = 1099. He was started on ivf's and renal panel has shown improvement since that time. On day 2 of hospital admission, metabolic acidosis did become worse and he was transitioned to NaHCO3 gtt. At time of my evaluation patient reports excellent uop. He denies skin rashes. Patient admits to taking lisinopril for htn at home. ROS otherwise negative. Review of Systems Constitutional: Reports as per HPI [facility] Past Medical History Medical History Alcohol withdrawal Essential hypertension Heroin abuse Type 2 diabetes mellitus with unspecified complications Social History Social History Household Members: Family Household Members Other:: mother Housing: Condominium Do you presently have visiting nurse or other home services: No Alcohol intake: unknown Substance Use Type: Heroin Advance Directives: No Advance Directives Information Provided: Yes service: No Current occupational status: unemployed Meds Allergies Allergy/AdvReac Type Severity Reaction Status Date / Time No Known Allergies Allergy Unverified 07/03/20 23:00 Active Medications: Current Medications Acetaminophen (Acetaminophen 325 Mg Tablet) 650 mg PO Q6H PRN PRN Reason: Pain, Mild (Pain Scale 1-3) Amlodipine Besylate (Amlodipine Besylate 5 Mg Tablet) 5 mg PO DAILY [facility]; Protocol Last Admin: 10/27/21 09:45 Dose: 5 mg Aspirin (Aspirin Enteric Coated 81 Mg Tablet.) 81 mg PO DAILY [facility] Last Admin: 10/27/21 09:45 Dose: 81 mg Atorvastatin Calcium (Atorvastatin Calcium 80 Mg Tablet) 80 mg PO BEDTIME [facility] Buprenorphine/Naloxone (Buprenorphine/Naloxone 8/2 Mg Film) 2 film SUBLINGUAL DAILY [facility] Last Admin: 10/27/21 09:45 Dose: 2 film Buprenorphine/Naloxone (Buprenorphine/Naloxone 4/1 Mg Film) 1 film SUBLINGUAL DAILY [facility] Last Admin: 10/27/21 09:45 Dose: 1 film Clonidine HCl (Clonidine Hcl 0.2 Mg Tablet) 0.2 mg PO DAILY [facility]; Protocol Last Admin: 10/27/21 09:45 Dose: 0.2 mg Dextrose (Dextrose 50 % 25 Gm/50 Ml Syringe) 25 gm IVPUSH Q15M PRN; Protocol PRN Reason: per Hypoglycemia Standing Ord. Fluticasone/Vilanterol (Fluticasone/Vilanterol 100/25 Blst.W.Dev) 1 puff INHALE RDAILY [facility] Glucose (Glucose Gel 15 Gm Gel..Gram.) 15 gm PO Q15M PRN; Protocol PRN Reason: per Hypoglycemia Standing Ord. Heparin Sodium (Porcine) (Heparin Sodium,Porcine 5,000 Unit/Ml Vial) 5,000 unit SUBCUT Q8H [facility] Last Admin: 10/27/21 14:34 Dose: 5,000 unit Hydromorphone HCl (Hydromorphone Hcl 0.5 Mg/0.5 Ml Syringe) 0.5 mg IVPUSH Q4H PRN; Protocol PRN Reason: Breakthrough Pain Last Admin: 10/27/21 01:30 Dose: 0.5 mg Sodium Bicarbonate 150 meq/ (Dextrose) 1,000 mls @ 100 mls/hr IV .Q10H [facility] Last Admin: 10/27/21 09:46 Dose: 100 mls/hr Insulin Human Lispro (Insulin Lispro 100 Unit/Ml 3 Ml Vial) 0 unit SUBCUT QIDACHS [facility]; Protocol Last Admin: 10/27/21 14:19 Dose: Not Given Loratadine (Loratadine 10 Mg Tablet) 10 mg PO DAILY PRN PRN Reason: Allergy Symptoms Metoprolol Tartrate (Metoprolol Tartrate 100 Mg Tablet) 100 mg PO BID [facility]; Protocol Last Admin: 10/27/21 09:45 Dose: 100 mg Pharmacy Consult (Consult Rx Perform Med Rec) 1 each MISCELLANE ONCE PRN PRN Reason: Consult order Senna (Sennosides 8.6 Mg Tablet) 17.2 mg PO BEDTIME PRN PRN Reason: Constipation Sodium Chloride (0.9 % Sodium Chloride Flush 3 Ml Syringe) [facility] Last Admin: 10/27/21 15:02 Dose: Not Given Home Medications Medication Instructions Recorded Confirmed Last Taken Type acetaminophen 325 mg tablet 2 tab PO Q6H PRN pain 10/27/21 10/27/21 Unknown History amlodipine 5 mg tablet 1 tab PO QAM 10/27/21 10/27/21 Unknown History aspirin 81 mg tablet,delayed 1 tab PO QAM 10/27/21 10/27/21 Unknown History release buprenorphine 8 mg-naloxone 2 mg 2.5 strip sublingual DAILY 10/27/21 10/27/21 Unknown History sublingual film (Suboxone) clonidine HCl 0.2 mg tablet 1 tab PO 1XD 10/27/21 10/27/21 Unknown History fluticasone 250 mcg-salmeterol 50 1 puff PO 2XD 10/27/21 10/27/21 Unknown History mcg/dose blistr powdr for inhalation (Advair Diskus) insulin degludec 100 unit/mL (3 30 unit subcut DAILY 10/27/21 10/27/21 Unknown History mL) subcutaneous pen (Tresiba FlexTouch U-100 insulin) lisinopril 40 mg tablet 1 tab PO QAM 10/27/21 10/27/21 Unknown History loratadine 10 mg tablet 1 tab PO DAILY PRN Allergy Symptoms 10/27/21 10/27/21 Unknown History semaglutide 14 mg tablet (Rybelsus) 1 tab PO QAM 10/27/21 10/27/21 Unknown History zolpidem 10 mg tablet 1 tab PO BEDTIME 10/27/21 10/27/21 Unknown History Physical Exam Vital Signs: Last Vital Signs Temp 98.8 F 10/27/21 17:57 Pulse 65 10/27/21 17:57 Resp 18 10/27/21 17:57 BP 188/83 H 10/27/21 17:57 Pulse Ox 100 10/27/21 17:57 O2 Del Method 10/27/21 17:57 BMI result Body Mass Index 24.3 Const General: cooperative, comfortable and no acute distress Orientation/consciousness: patient oriented x3 HEENT Head: Yes normocephalic and Yes atraumatic Neck Neck: Yes no JVD Resp Auscultation: clear to auscultation bilaterally Cardio Jugular venous distension: no JVD Rhythm: regular rhythm GI Auscultation: normal bowel sounds Neuro General: patient oriented x3 Extrem General: Yes no clubbing, cyanosis or edema Results Lab Results Result Diagrams: 10/27/21 08:15 10/27/21 12:54 Lab results: Chemistry 10/26/21 10/27/21 10/27/21 20:03 01:10 07:04 Sodium 139 142 140 Potassium 6.3 H* D 4.6 D 5.4 H Carbon Dioxide 20 L 16 L 13 L BUN 119 H 113 H 105 H Creatinine 17.80 H* 14.80 H* 12.54 H* Calcium 9.5 8.5 D 8.2 L 10/27/21 12:54 Sodium 139 Potassium 4.5 Carbon Dioxide 16 L BUN 96 H Creatinine 9.72 H* Calcium 7.9 L Hematology 10/26/21 10/27/21 10/27/21 19:08 01:10 08:15 WBC 12.0 H 11.6 H 11.0 H Hgb 13.4 L 11.8 L 11.0 L Plt Count 278 235 212 Urinalysis 10/27/21 00:00 Urine Color YELLOW Urine Appearance CLEAR Urine pH 5.5 Ur Specific [place] >= 1.030 H Urine Protein 1+ H Urine Glucose (UA) 100 H Urine Ketones NEG Urine Blood 2+ H Urine Nitrite NEG Ur Leukocyte Esterase NEG Urine RBC 1-4 Urine WBC 1-4 Ur Squamous Epith Cells 1+ Hyaline Casts 1-4 Assessment and Plan (1) BLAYNE (acute kidney injury): Status: Acute Plan 55 with a past medical history of hypertension, hyperlipidemia, diabetes, BREE, polysubstance abuse, heroin abuse who presented to [facility] ED with confusion. Patient was found on the streets with erratic behavior. Received Narcan with improvement in his mental status. Patient also admitted to fall/head strike. He tells me he thinks he was passed out for ~ 30 minutes. Patient denied any chest pain or palpitations. In the ED, U tox positive for opiates/fentanyl. Initial BUN/Cr = 119/17.8. UA showed concentrated urine with 2+ blood and minimal rbc's consistent with rhabdomyolysis. CK would later confirm this with level = 1099. He was started on ivf's and renal panel has shown improvement since that time. On day 2 of hospital admission, metabolic acidosis did become worse and he was transitioned to NaHCO3 gtt. At time of my evaluation patient reports excellent uop. He denies skin rashes. Patient admits to taking lisinopril for htn at home. Plan: COntinue with NaHCO3 gtt as you are doing. Patient fortunately making good uop . Bicarbonate will assist with alkalanization of urine to reduce risk of pigment induced nephropathy. BLAYNE consistent with rhabdomyolysis which was further exacerbated by acei use. Will add serologies to rule out GN however I have less suspicion of vasculitis at this time. Renal panel shows ongoing renal recovery. Renal panel daily avoidance of nsaids, acei/arb, iv contrast low K diet. Lokelma prn K>5.0 Procedures Date of Service Date of Service: 10/27/21
[2021-10-27 20:36] LABS: Glucose, Whole Blood 333 mg/dL (60-115)
[2021-10-27] MEDS: Insulin Lispro 100 UNIT/ML 3 ML VIAL SUBCUT (20:44)
[2021-10-27] MEDS: Atorvastatin Calcium 80 MG TABLET PO (20:45)
[2021-10-28] VITALS (7 sets, daily range): BP systolic 158–211; BP diastolic 70–83; PULSE 60–72; RESP 11–18; TEMP 36.7–37.1; O2SAT 96–99; BMI 24.7
[2021-10-28] MEDS: Heparin Sodium,Porcine 5,000 UNIT/ML VIAL 5000 UNIT SUBCUT ×3 (05:32→23:08)
[2021-10-28] MEDS: Buprenorphine/Naloxone 4/1 mg FILM 1 FILM SUBLINGUAL (08:00)
[2021-10-28] MEDS: Aspirin Enteric Coated 81 MG TABLET.DR PO (08:00)
[2021-10-28] MEDS: cloNIDine HCL 0.2 MG TABLET PO (08:00)
[2021-10-28] MEDS: Metoprolol Tartrate 100 MG TABLET PO ×2 (08:00→23:08)
[2021-10-28] MEDS: amLODIPine Besylate 5 MG TABLET PO (08:00)
[2021-10-28] MEDS: Buprenorphine/Naloxone 8/2 mg FILM 2 FILM SUBLINGUAL (08:00)
[2021-10-28] MEDS: Insulin Lispro 100 UNIT/ML 3 ML VIAL SUBCUT ×3 (08:00→19:32)
[2021-10-28 08:02] LABS: Glucose, Whole Blood 224 mg/dL (60-115)
[2021-10-28 08:16] LABS: Hematocrit 36.3 % (42.0-52.0); Mean Corpuscular HGB Conc 33.1 g/dl (31.0-36.0); Mean Corpuscular Hemoglobin 27.4 pg (27.0-33.0); Mean Corpuscular Volume 82.9 fL (80.0-98.0); Mean Platelet Volume 10.4 fL (9.4-12.4); Platelet Count 217 X10*3/uL (160-400); Red Blood Count 4.38 X10*6/uL (4.60-5.80); White Blood Count 8.5 X10*3/uL (4.8-10.8)
[2021-10-28 08:38] LABS: Anion Gap 16 (12-20); Blood Urea Nitrogen 68 mg/dL (9-16); Calcium 8.1 mg/dL (8.4-10.2); Carbon Dioxide 28 mmol/L (22-29); Chloride 102 mmol/L (96-108); Creatinine Clr Calc Pharmacy 19.8; Estimated Glomerular Filt Rate 15; Glucose Fasting 237 mg/dL (60-99); Potassium 3.9 mmol/L (3.3-5.1); Sodium 142 mmol/L (135-145)
[2021-10-28] MEDS: hydrALAZINE HCl 25 MG TABLET PO ×3 (10:15→23:07)
[2021-10-28] MEDS: Lactated Ringers 1,000 ML 100 ML IVCONT ×2 (10:16→20:34)
--- NOTE | 2021-10-28 10:38 | P.PNIM_ITS ---
Subjective Subjective Date of Service: 10/28/21 Interval History: cc: weakness interval history: feels better Cardiovascular Cardiovascular: Reports no additional cardiovascular complaints Respiratory Respiratory: Reports no additional respiratory complaints Physical Exam Vital Signs: Vital Signs: Last Vital Signs Temp 98.8 F 10/27/21 17:57 Pulse 60 10/28/21 07:51 Resp 11 L 10/28/21 07:51 BP 211/83 H 10/28/21 07:51 Pulse Ox 99 10/28/21 07:51 O2 Del Method 10/28/21 07:51 BMI result Body Mass Index 24.3 Const: General: cooperative, comfortable and no acute distress Orientation/consciousness: patient oriented x3 HEENT: Head: Yes normocephalic and Yes atraumatic Neck: Neck: Yes no JVD Resp: Auscultation: clear to auscultation bilaterally Cardio: Jugular venous distension: no JVD Rhythm: regular rhythm GI: Auscultation: normal bowel sounds Neuro: General: patient oriented x3 Extrem: General: Yes no clubbing, cyanosis or edema Objective Data Active Medications Acetaminophen (Acetaminophen 325 Mg Tablet) 650 mg PO Q6H PRN PRN Reason: Pain, Mild (Pain Scale 1-3) Amlodipine Besylate (Amlodipine Besylate 5 Mg Tablet) 5 mg PO DAILY [facility] TO [facility]; Protocol Last Admin: 10/28/21 08:00 Dose: 5 mg Documented By: GUY Aspirin (Aspirin Enteric Coated 81 Mg Tablet.) 81 mg PO DAILY [facility] Last Admin: 10/28/21 08:00 Dose: 81 mg Documented By: GUY Atorvastatin Calcium (Atorvastatin Calcium 80 Mg Tablet) 80 mg PO BEDTIME [facility] Last Admin: 10/27/21 20:45 Dose: 80 mg Documented By: EDGAR Buprenorphine/Naloxone (Buprenorphine/Naloxone 8/2 Mg Film) 2 film SUBLINGUAL DAILY [facility] Last Admin: 10/28/21 08:00 Dose: 2 film Documented By: GUY Buprenorphine/Naloxone (Buprenorphine/Naloxone 4/1 Mg Film) 1 film SUBLINGUAL DAILY [facility] Last Admin: 10/28/21 08:00 Dose: 1 film Documented By: GUY Clonidine HCl (Clonidine Hcl 0.2 Mg Tablet) 0.2 mg PO DAILY [facility]; Protocol Last Admin: 10/28/21 08:00 Dose: 0.2 mg Documented By: GUY Dextrose (Dextrose 50 % 25 Gm/50 Ml Syringe) 25 gm IVPUSH Q15M PRN; Protocol PRN Reason: per Hypoglycemia Standing Ord. Fluticasone/Vilanterol (Fluticasone/Vilanterol 100/25 Blst.W.Dev) 1 puff INHALE RDAILY [facility] Last Admin: 10/28/21 07:16 Dose: Not Given Documented By: ADELINE Non-Admin Reason: Med Not Available Glucose (Glucose Gel 15 Gm Gel..Gram.) 15 gm PO Q15M PRN; Protocol PRN Reason: per Hypoglycemia Standing Ord. Heparin Sodium (Porcine) (Heparin Sodium,Porcine 5,000 Unit/Ml Vial) 5,000 unit SUBCUT Q8H [facility] Last Admin: 10/28/21 05:32 Dose: 5,000 unit Documented By: EDGAR Hydralazine HCl (Hydralazine Hcl 25 Mg Tablet) 25 mg PO TID [facility]; Protocol Last Admin: 10/28/21 10:15 Dose: 25 mg Documented By: GUY Hydromorphone HCl (Hydromorphone Hcl 0.5 Mg/0.5 Ml Syringe) 0.5 mg IVPUSH Q4H PRN; Protocol PRN Reason: Breakthrough Pain Last Admin: 10/27/21 01:30 Dose: 0.5 mg Documented By: CLARISSA Lactated Ringer's (Lr) 1,000 mls @ 100 mls/hr IVCONT .Q10H [facility] TO [facility] Last Admin: 10/28/21 10:16 Dose: 100 mls/hr Documented By: GUY Insulin Human Lispro (Insulin Lispro 100 Unit/Ml 3 Ml Vial) 0 unit SUBCUT QIDACHS [facility]END[facility] TO [facility]; Protocol Last Admin: 10/28/21 08:00 Dose: 4 unit Documented By: GUY Loratadine (Loratadine 10 Mg Tablet) 10 mg PO DAILY PRN PRN Reason: Allergy Symptoms Metoprolol Tartrate (Metoprolol Tartrate 100 Mg Tablet) 100 mg PO BID [facility]; Protocol Last Admin: 10/28/21 08:00 Dose: 100 mg Documented By: GUY Pharmacy Consult (Consult Rx Perform Med Rec) 1 each MISCELLANE ONCE PRN PRN Reason: Consult order Senna (Sennosides 8.6 Mg Tablet) 17.2 mg PO BEDTIME PRN PRN Reason: Constipation Sodium Chloride (0.9 % Sodium Chloride Flush 3 Ml Syringe) 3 ml IVFLUSH QSHIFT [facility]END[facility] TO [facility] Last Admin: 10/28/21 07:42 Dose: Not Given Documented By: GUY Non-Admin Reason: IV Running Labs CBC & Chem 7: 10/28/21 08:06 10/28/21 08:06 Labs: Laboratory Results - last 24 hr 10/27/21 10/27/21 10/27/21 12:21 12:54 14:00 MCV MCH MCHC RDW Plt Count MPV Absolute Nucleated RBC Nucleated RBC % (auto) Anion Gap 23 H Estim Creat Clear Calc 8.6 Estimated GFR 6 POC Glucose 192 H 179 H Random Glucose 215 H Fasting Glucose Calcium 7.9 L 10/27/21 10/27/21 10/28/21 18:40 20:32 07:49 MCV MCH MCHC RDW Plt Count MPV Absolute Nucleated RBC Nucleated RBC % (auto) Anion Gap Estim Creat Clear Calc Estimated GFR POC Glucose 236 H 333 H 224 H Random Glucose Fasting Glucose Calcium 10/28/21 10/28/21 08:06 08:06 MCV 82.9 MCH 27.4 MCHC 33.1 RDW 13.0 Plt Count 217 MPV 10.4 Absolute Nucleated RBC 0.000 Nucleated RBC % (auto) 0.0 Anion Gap 16 Estim Creat Clear Calc 19.8 Estimated GFR 15 POC Glucose Random Glucose Fasting Glucose 237 H Calcium 8.1 L Assessment and Plan (1) BLAYNE (acute kidney injury): Status: Acute Plan 55M presented with ams, weakness metabolic encephalopathy due to BLAYNE with uremia coplicated by metabolic acidosis dehydration vs uncontrolled hypertension no evidence of urinary retention on CT nephro following acidosis resolved, non oliguric, creatinine improving, change fluids to LR monitor bmp hold talat-i htn - uncontrolled amlodipine, clonidine, lopressor holding lisinopril for blayne, will start hydralazine hyperkalemia improved with lokelma holding talat-i monitor DM insulin opiate dependence suboxone dvt prophylaxis - hep sq full code reason for continued hospitalization:severe blayne, monitor closely for renal recovery, uncontrolled htn Quality Stroke Does the patient have a stroke diagnosis?: No VTE Prior VTE?: No VTE Risk Level:: Medical - moderate - high VTE Device Contraindication: Treatment Not Indicated VTE Drug Contraindication: N/A - Med Ordered
[2021-10-28 13:43] LABS: Glucose, Whole Blood 230 mg/dL (60-115)
--- NOTE | 2021-10-28 14:07 | PM.UROCN ---
History of Present Illness Consult details Consult date: 10/28/21 Narrative: consulting complaint phimostew Rome is a 56-year-old Anguillan-speaking male Present through the emergency room with elevated creatinine, elevated blood sugar Opioid use and disorientation Found to have marked phimosis of the foreskin Able to urinate and creatinine has substantially improved dropping from 17 down to 4.2 Recommend outpatient re-evaluation for phimosis Needs repeat hemoglobin A1c Review of Systems Constitutional: Constitutional: Reports as per HPI and Reports no additional constitutional complaints Cardiovascular: Cardiovascular: Reports as per HPI and Reports no additional cardiovascular complaints Respiratory: Respiratory: Reports as per HPI and Reports no additional respiratory complaints Gastrointestinal: Gastrointestinal: Reports as per HPI and Reports no additional gastrointestinal complaints Genitourinary: Genitourinary: Reports as per HPI Musculoskeletal: Musculoskeletal: Reports no additional musculoskeletal complaints and Reports as per HPI Neurologic: Reports system reviewed and no additional complaints, except as documented and Reports as per HPI PMFSH Past Medical History Medical History Alcohol withdrawal Essential hypertension Heroin abuse Type 2 diabetes mellitus with unspecified complications Social History Social History Household Members: Family Household Members Other:: mother Housing: Condominium Do you presently have visiting nurse or other home services: No Alcohol intake: unknown Substance Use Type: Heroin Advance Directives: No Advance Directives Information Provided: Yes service: No Current occupational status: unemployed Meds Allergies Allergy/AdvReac Type Severity Reaction Status Date / Time No Known Allergies Allergy Unverified 07/03/20 23:00 Active Medications: Current Medications Acetaminophen (Acetaminophen 325 Mg Tablet) 650 mg PO Q6H PRN PRN Reason: Pain, Mild (Pain Scale 1-3) Amlodipine Besylate (Amlodipine Besylate 5 Mg Tablet) 5 mg PO DAILY [facility]; Protocol Last Admin: 10/28/21 08:00 Dose: 5 mg Aspirin (Aspirin Enteric Coated 81 Mg Tablet.) 81 mg PO DAILY [facility] Last Admin: 10/28/21 08:00 Dose: 81 mg Atorvastatin Calcium (Atorvastatin Calcium 80 Mg Tablet) 80 mg PO BEDTIME [facility] Last Admin: 10/27/21 20:45 Dose: 80 mg Buprenorphine/Naloxone (Buprenorphine/Naloxone 8/2 Mg Film) 2 film SUBLINGUAL DAILY [facility] Last Admin: 10/28/21 08:00 Dose: 2 film Buprenorphine/Naloxone (Buprenorphine/Naloxone 4/1 Mg Film) 1 film SUBLINGUAL DAILY [facility] Last Admin: 10/28/21 08:00 Dose: 1 film Clonidine HCl (Clonidine Hcl 0.2 Mg Tablet) 0.2 mg PO DAILY [facility]; Protocol Last Admin: 10/28/21 08:00 Dose: 0.2 mg Dextrose (Dextrose 50 % 25 Gm/50 Ml Syringe) 25 gm IVPUSH Q15M PRN; Protocol PRN Reason: per Hypoglycemia Standing Ord. Fluticasone/Vilanterol (Fluticasone/Vilanterol 100/25 Blst.W.Dev) 1 puff INHALE RDAILY [facility] Last Admin: 10/28/21 07:16 Dose: Not Given Glucose (Glucose Gel 15 Gm Gel..Gram.) 15 gm PO Q15M PRN; Protocol PRN Reason: per Hypoglycemia Standing Ord. Heparin Sodium (Porcine) (Heparin Sodium,Porcine 5,000 Unit/Ml Vial) 5,000 unit SUBCUT Q8H [facility] Last Admin: 10/28/21 05:32 Dose: 5,000 unit Hydralazine HCl (Hydralazine Hcl 25 Mg Tablet) 25 mg PO TID [facility]; Protocol Last Admin: 10/28/21 10:15 Dose: 25 mg Hydromorphone HCl (Hydromorphone Hcl 0.5 Mg/0.5 Ml Syringe) 0.5 mg IVPUSH Q4H PRN; Protocol PRN Reason: Breakthrough Pain Last Admin: 10/27/21 01:30 Dose: 0.5 mg Lactated Ringer's (Lr) 1,000 mls @ 100 mls/hr IVCONT .Q10H [facility] Last Admin: 10/28/21 10:16 Dose: 100 mls/hr Insulin Human Lispro (Insulin Lispro 100 Unit/Ml 3 Ml Vial) 0 unit SUBCUT QIDACHS [facility]; Protocol Last Admin: 10/28/21 08:00 Dose: 4 unit Loratadine (Loratadine 10 Mg Tablet) 10 mg PO DAILY PRN PRN Reason: Allergy Symptoms Metoprolol Tartrate (Metoprolol Tartrate 100 Mg Tablet) 100 mg PO BID [facility]; Protocol Last Admin: 10/28/21 08:00 Dose: 100 mg Pharmacy Consult (Consult Rx Perform Med Rec) 1 each MISCELLANE ONCE PRN PRN Reason: Consult order Senna (Sennosides 8.6 Mg Tablet) 17.2 mg PO BEDTIME PRN PRN Reason: Constipation Sodium Chloride (0.9 % Sodium Chloride Flush 3 Ml Syringe) 3 ml IVFLUSH QSHIFT [facility] Last Admin: 10/28/21 07:42 Dose: Not Given Home Medications Medication Instructions Recorded Confirmed Last Taken Type acetaminophen 325 mg tablet 2 tab PO Q6H PRN pain 10/27/21 10/27/21 Unknown History amlodipine 5 mg tablet 1 tab PO QAM 10/27/21 10/27/21 Unknown History aspirin 81 mg tablet,delayed 1 tab PO QAM 10/27/21 10/27/21 Unknown History release buprenorphine 8 mg-naloxone 2 mg 2.5 strip sublingual DAILY 10/27/21 10/27/21 Unknown History sublingual film (Suboxone) clonidine HCl 0.2 mg tablet 1 tab PO 1XD 10/27/21 10/27/21 Unknown History fluticasone 250 mcg-salmeterol 50 1 puff PO 2XD 10/27/21 10/27/21 Unknown History mcg/dose blistr powdr for inhalation (Advair Diskus) insulin degludec 100 unit/mL (3 30 unit subcut DAILY 10/27/21 10/27/21 Unknown History mL) subcutaneous pen (Tresiba FlexTouch U-100 insulin) lisinopril 40 mg tablet 1 tab PO QAM 10/27/21 10/27/21 Unknown History loratadine 10 mg tablet 1 tab PO DAILY PRN Allergy Symptoms 10/27/21 10/27/21 Unknown History semaglutide 14 mg tablet (Rybelsus) 1 tab PO QAM 10/27/21 10/27/21 Unknown History zolpidem 10 mg tablet 1 tab PO BEDTIME 10/27/21 10/27/21 Unknown History Physical Exam Vital Signs: Vital Signs: Last Vital Signs Temp 98.8 F 10/27/21 17:57 Pulse 64 10/28/21 13:37 Resp 16 10/28/21 13:37 BP 158/70 H 10/28/21 13:37 Pulse Ox 99 10/28/21 13:37 O2 Del Method 10/28/21 13:37 BMI result Body Mass Index 24.3 Const: General: cooperative, healthy appearing, comfortable and no acute distress Orientation/consciousness: patient oriented x3 HEENT: Face and sinus: Yes normal facial exam Mouth: moist mucous membranes Neck: Neck: Yes normal visual inspection, Yes full ROM and Yes trachea midline Chest: Chest palpation & inspection: normal inspection of the chest Resp: Effort & Inspection: normal respiratory effort, able to speak in complete sentences and no respiratory distress GI: Inspection: Yes normal to inspection Back/Spine/Pelvis: Cervical Spine: normal cervical lordosis Thoracic/Lumbar Spine: thoracic and lumbar spine normal to inspection Skin: General skin exam: no rashes or lesions noted Neuro: General: patient oriented x3, tone normal and moves all extremities Extrem: General: Yes normal to inspection and Yes capillary refill normal Results Labs Result diagrams: 10/28/21 08:06 10/28/21 08:06 Labs: Abnormal lab results 10/27/21 10/27/21 10/28/21 Range/Units 18:40 20:32 07:49 RBC (4.60-5.80) X10*6/uL Hgb (14.0-18.0) g/dl Hct (42.0-52.0) % BUN (9-16) mg/dL Creatinine (0.5-1.4) mg/dL POC Glucose 236 H 333 H 224 H (60-115) mg/dL Fasting Glucose (60-99) mg/dL Calcium (8.4-10.2) mg/dL 10/28/21 10/28/21 10/28/21 Range/Units 08:06 08:06 13:34 RBC 4.38 L (4.60-5.80) X10*6/uL Hgb 12.0 L (14.0-18.0) g/dl Hct 36.3 L (42.0-52.0) % BUN 68 H (9-16) mg/dL Creatinine 4.18 H* (0.5-1.4) mg/dL POC Glucose 230 H (60-115) mg/dL Fasting Glucose 237 H (60-99) mg/dL Calcium 8.1 L (8.4-10.2) mg/dL Short CBC 10/28/21 Range/Units 08:06 WBC 8.5 (4.8-10.8) X10*3/uL Hgb 12.0 L (14.0-18.0) g/dl Hct 36.3 L (42.0-52.0) % Plt Count 217 (160-400) X10*3/uL BMP 10/28/21 08:06 Sodium 142 Potassium 3.9 Chloride 102 Carbon Dioxide 28 BUN 68 H Creatinine 4.18 H* Calcium 8.1 L Urine 10/27/21 Range/Units 00:00 Urine Color YELLOW Urine Appearance CLEAR Urine pH 5.5 (5.0-8.0) Ur Specific Thur[place] >= 1.030 H (1.005-1.025) Urine Protein 1+ H (NEG-TRACE) MG/DL Urine Glucose (UA) 100 H (NEG) MG/DL All other labs normal. Assessment and Plan (1) BLAYNE (acute kidney injury): Status: Acute (2) Substance abuse: Status: Acute (3) Phimosis: Status: Acute (4) Diabetes mellitus type 2, insulin dependent: Status: Acute Plan outpatient follow-up Procedures Date of Service Date of Service: 10/28/21
--- NOTE | 2021-10-28 16:39 | PM.PNNEP ---
Subjective Subjective Date of Service: 10/28/21 Interval history: Chart Reviewed. Events noted. S-Cr continues to downtrend Physical Exam Vital Signs: Vital Signs: Last Vital Signs Temp 98.7 F 10/28/21 15:45 Pulse 72 10/28/21 15:45 Resp 14 10/28/21 14:32 BP 180/73 H 10/28/21 15:45 Pulse Ox 96 10/28/21 15:45 O2 Del Method 10/28/21 15:45 BMI result Body Mass Index 24.3 Const: General: cooperative and no acute distress Orientation/consciousness: patient oriented x3 HEENT: Head: Yes normocephalic and Yes atraumatic Neck: Neck: Yes no JVD Resp: Auscultation: clear to auscultation bilaterally Cardio: Jugular venous distension: no JVD Rate: regular rate Rhythm: regular rhythm GI: Auscultation: normal bowel sounds Neuro: General: patient oriented x3 Extrem: General: Yes no joint enlargement and Yes no clubbing, cyanosis or edema Objective Data Labs CBC & Chem 7: 10/28/21 08:06 10/28/21 08:06 Labs: Laboratory Results - last 24 hr 10/27/21 10/27/21 10/28/21 18:40 20:32 07:49 WBC RBC Hgb Hct MCV MCH MCHC RDW Plt Count MPV Absolute Nucleated RBC Nucleated RBC % (auto) Sodium Potassium Chloride Carbon Dioxide Anion Gap BUN Creatinine Estim Creat Clear Calc Estimated GFR POC Glucose 236 H 333 H 224 H Fasting Glucose Calcium 10/28/21 10/28/21 10/28/21 08:06 08:06 13:34 WBC 8.5 RBC 4.38 L Hgb 12.0 L Hct 36.3 L MCV 82.9 MCH 27.4 MCHC 33.1 RDW 13.0 Plt Count 217 MPV 10.4 Absolute Nucleated RBC 0.000 Nucleated RBC % (auto) 0.0 Sodium 142 Potassium 3.9 Chloride 102 Carbon Dioxide 28 Anion Gap 16 BUN 68 H Creatinine 4.18 H* Estim Creat Clear Calc 19.8 Estimated GFR 15 POC Glucose 230 H Fasting Glucose 237 H Calcium 8.1 L Procedures Date of Service Date of Service: 10/28/21 Assessment & Plan Assessment and plan (1) BLAYNE (acute kidney injury): Status: Acute Assessment and Plan: 55 with a past medical history of hypertension, hyperlipidemia, diabetes, BREE, polysubstance abuse, heroin abuse who [place] [facility] with confusion. Patient was found on the streets with erratic behavior. Received Narcan? with improvement in his mental status. Patient also admitted to fall/head strike.? He tells me he thinks he was passed out for ~ 30 minutes. Patient denied any chest pain or palpitations. In the ED, U tox positive for opiates/fentanyl. Initial BUN/Cr = 119/17.8. UA showed concentrated urine with 2+ blood and minimal rbc's consistent with rhabdomyolysis. CK would later confirm this with level = 1099. He was started on ivf's and renal panel has shown improvement since that time. On day 2 of hospital admission, metabolic acidosis did become worse and he was transitioned to NaHCO3 gtt. Patient admits to taking lisinopril for htn at home. Plan: #) BLAYNE, nonoliguric Renal injury with noted evidence of rhabdomyolysis. BLAYNE further exacerbated by illicit drug use and continued use of acei which further disrupted renal hemodynamics. S/P admoin of bicarbonate with improvement in acidosis. CK downtrending along with bun/Cr. We can switch to maintenance ivf's for continued alkalization of urine. Electrolytes otherwise stable. Patient fortunately making good uop COntinue to monitor uop. Serologies to rule out GN although I have less suspicion of vasculitis at this time. Renal panel daily avoidance of nsaids, acei/arb, iv contrast low K diet. Lokelma prn K>5.0 (2) Acute hyperkalemia: Status: Acute Time Spent With Patient Time: Total time spent is greater than 50% in coordination of care (as documented) at patient's floor/unit and/or counseling patient: Progress Note: Quality Stroke Does the patient have a stroke diagnosis?: No
[2021-10-28 16:49] LABS: Glucose, Whole Blood 194 mg/dL (60-115)
--- NOTE | 2021-10-28 18:02 | MHC.RECOVSUP ---
? Reason for consult Recovery support o Current location: ED15 o Identified substance use concern: Heroin - Overdose - Seeking ATS (detox) - Support ? Intervention: o Community resources provided o Harm reduction discussion ? Plan: o Referral to [facility] o Patient to follow up with H after discharge ? Additional information: Met with Patient and we talk about harm reduction & Recovery.. Ask Patient is he wanted to go to a detox.. Patient stated that Once he leave here that he will be going to [place] to live..I advised Patient that once he gets to [place] to get help.. i
[2021-10-28 19:38] LABS: Glucose, Whole Blood 198 mg/dL (60-115)
--- NOTE | 2021-10-28 19:44 | PC.NURSE ---
report received from Judi CORDERO. vital sings updated, poc obtained, 2 units insulin lispro given per ss for sugar of 198. pt ate dinner. resting comfortably on stretcher, no complaints. call up within reach.
[2021-10-28] MEDS: Atorvastatin Calcium 80 MG TABLET PO (23:08)
[2021-10-28] MEDS: HYDROmorphone HCl 0.5 MG/0.5 ML SYRINGE IVPUSH (23:08)
[2021-10-29] VITALS (7 sets, daily range): BP systolic 164–192; BP diastolic 60–79; PULSE 65–87; RESP 17–20; TEMP 36.4–37.1; O2SAT 96–100
[2021-10-29] MEDS: HYDROmorphone HCl 0.5 MG/0.5 ML SYRINGE IVPUSH (05:29)
[2021-10-29] MEDS: Heparin Sodium,Porcine 5,000 UNIT/ML VIAL 5000 UNIT SUBCUT ×2 (05:30→14:31)
[2021-10-29] MEDS: Lactated Ringers 1,000 ML 100 ML IVCONT (05:30)
[2021-10-29 05:50] LABS: Hematocrit 34.6 % (42.0-52.0); Hemoglobin 11.1 g/dl (14.0-18.0); Mean Corpuscular HGB Conc 32.1 g/dl (31.0-36.0); Mean Corpuscular Hemoglobin 27.1 pg (27.0-33.0); Mean Corpuscular Volume 84.6 fL (80.0-98.0); Mean Platelet Volume 10.3 fL (9.4-12.4); Platelet Count 195 X10*3/uL (160-400); Red Blood Count 4.09 X10*6/uL (4.60-5.80); Red Cell Distribution Width 12.9 % (11.0-16.0); White Blood Count 12.9 X10*3/uL (4.8-10.8)
[2021-10-29 06:16] LABS: Anion Gap 16 (12-20); Blood Urea Nitrogen 46 mg/dL (9-16); Calcium 8.1 mg/dL (8.4-10.2); Carbon Dioxide 28 mmol/L (22-29); Chloride 105 mmol/L (96-108); Creatinine Clr Calc Pharmacy 41.9; Estimated Glomerular Filt Rate 35; Glucose Fasting 215 mg/dL (60-99); Potassium 4.6 mmol/L (3.3-5.1); Sodium 144 mmol/L (135-145)
[2021-10-29 06:52] LABS: Estimated Average Glucose 226 mg/dL; Hemoglobin A1c % 9.5 %
[2021-10-29 07:21] LABS: Glucose, Whole Blood 182 mg/dL (60-115)
[2021-10-29] MEDS: Fluticasone/Vilanterol 100/25 BLST.W.DEV 1 PUFF INHALE (07:24)
[2021-10-29] MEDS: Buprenorphine/Naloxone 4/1 mg FILM 1 FILM SUBLINGUAL (08:55)
[2021-10-29] MEDS: Buprenorphine/Naloxone 8/2 mg FILM 2 FILM SUBLINGUAL (08:55)
[2021-10-29] MEDS: Metoprolol Tartrate 100 MG TABLET PO (08:56)
[2021-10-29] MEDS: Insulin Lispro 100 UNIT/ML 3 ML VIAL SUBCUT ×3 (08:56→16:44)
[2021-10-29] MEDS: cloNIDine HCL 0.2 MG TABLET PO (08:56)
[2021-10-29] MEDS: Aspirin Enteric Coated 81 MG TABLET.DR PO (08:57)
[2021-10-29] MEDS: hydrALAZINE HCl 25 MG TABLET PO ×2 (08:57→14:31)
[2021-10-29] MEDS: amLODIPine Besylate 5 MG TABLET PO ×2 (08:57→11:27)
--- NOTE | 2021-10-29 10:13 | P.PNNP_ITS ---
Subjective Subjective Date of Service: 10/29/21 Interval history: Chart Reviewed. Events noted. S-Cr continues to downtrend Physical Exam Vital Signs: Vital Signs: Last Vital Signs Temp 98.3 F 10/29/21 07:27 Pulse 74 10/29/21 07:27 Resp 20 10/29/21 07:27 BP 178/60 H 10/29/21 07:27 Pulse Ox 98 10/29/21 07:27 O2 Del Method 10/29/21 07:27 BMI result Body Mass Index 24.7 Const: General: cooperative, comfortable and no acute distress Orientation/consciousness: patient oriented x3 Resp: Auscultation: clear to auscultation bilaterally Cardio: Jugular venous distension: no JVD Rate: regular rate Rhythm: regular rhythm GI: Auscultation: normal bowel sounds Neuro: General: patient oriented x3 Extrem: General: Yes no joint enlargement and Yes no clubbing, cyanosis or edema Objective Data Labs CBC & Chem 7: 10/29/21 05:40 10/29/21 05:40 Labs: Laboratory Results - last 24 hr 10/28/21 10/28/21 10/28/21 13:34 16:43 19:27 WBC RBC Hgb Hct MCV MCH MCHC RDW Plt Count MPV Absolute Nucleated RBC Nucleated RBC % (auto) Sodium Potassium Chloride Carbon Dioxide Anion Gap BUN Creatinine Estim Creat Clear Calc Estimated GFR POC Glucose 230 H 194 H 198 H Fasting Glucose Estimat Average Glucose Hemoglobin A1c % Calcium 10/29/21 10/29/21 10/29/21 05:40 05:40 05:40 WBC 12.9 H RBC 4.09 L Hgb 11.1 L Hct 34.6 L MCV 84.6 MCH 27.1 MCHC 32.1 RDW 12.9 Plt Count 195 MPV 10.3 Absolute Nucleated RBC 0.000 Nucleated RBC % (auto) 0.0 Sodium 144 Potassium 4.6 Chloride 105 Carbon Dioxide 28 Anion Gap 16 BUN 46 H Creatinine 1.98 H Estim Creat Clear Calc 41.9 Estimated GFR 35 POC Glucose Fasting Glucose 215 H Estimat Average Glucose 226 Hemoglobin A1c % 9.5 Calcium 8.1 L 10/29/21 07:13 WBC RBC Hgb Hct MCV MCH MCHC RDW Plt Count MPV Absolute Nucleated RBC Nucleated RBC % (auto) Sodium Potassium Chloride Carbon Dioxide Anion Gap BUN Creatinine Estim Creat Clear Calc Estimated GFR POC Glucose 182 H Fasting Glucose Estimat Average Glucose Hemoglobin A1c % Calcium Procedures Date of Service Date of Service: 10/29/21 Assessment & Plan Assessment and plan (1) BLAYNE (acute kidney injury): Status: Acute Assessment and Plan: 55 with a history of hypertension, hyperlipidemia, diabetes, BREE, polysubstance abuse, heroin abuse who presented to [facility] with confusion. Patient was found on the streets with erratic behavior. Received Narcan? with improvement in his mental status. Patient also admitted to fall/head strike.? Initial BUN/Cr = 119/17.8. UA showed concentrated urine with 2+ blood and minimal rbc's consistent with mild rhabdomyolysis. With ivf's and renal panel has shown improvement since that time. On day 2 of hospital admission, metabolic acidosis did become worse and he was transitioned to NaHCO3 gtt. Patient takes lisinopril for htn at home. Plan: #) BLAYNE, nonoliguric Renal injury due to hypoperfusion/ATN and evidence of rhabdomyolysis. BLAYNE further exacerbated by illicit drug use and continued use of acei which further disrupted renal hemodynamics. S/P bicarbonate with improvement in acidosis. CK downtrending along with bun/Cr. Electrolytes otherwise stable. Patient fortunately making good uop COntinue to monitor uop. Serologies to rule out GN although I have less suspicion of vasculitis at this time. Renal panel daily avoidance of nsaids, acei/arb, iv contrast low K diet. Lokelma prn K>5.0 (2) Acute hyperkalemia: Status: Acute Time Spent With Patient Time: Total time spent is greater than 50% in coordination of care (as documented) at patient's floor/unit and/or counseling patient: Progress Note: Quality Stroke Does the patient have a stroke diagnosis?: No
--- NOTE | 2021-10-29 11:05 | PM.DS ---
DS: Providers Provider Date of Service: 10/29/21 Date of admission: 10/26/21 21:58 Primary care physician: Magdalena Jonas NP Consults: 10/26/21 22:02 Consult to Nephrology Routine Consulting Provider: Hans Florez Reason for consultation: BLAYNE 10/26/21 22:06 Consult to Nephrology Stat Consulting Provider: Faustino Lopez Reason for consultation: BLAYNE, rhabdo 10/27/21 01:38 Consult to Urology Routine Consulting Provider: Donovan Bryan Reason for consultation: phimosis; difficulty in renee placement DS: Diagnosis Discharge Diagnosis (1) BLAYNE (acute kidney injury): Status: Acute (2) Acute hyperkalemia: Status: Acute DS: Summary Hospital Course Hospital Course: from initial hpi: Chief Complaint:? confusion ?55 with a past medical history of hypertension, hyperlipidemia, diabetes, BREE, polysubstance abuse, heroin abuse presented to the hospital today with a chief complaint of ? Confusion.? Patient was found on the streets with diabetic behavior.? Patient no was noted to have pinpoint pupils; subsequently Narcan was given with improvement in his mental status.? Patient also reported? fall/head strike.? Denies any headaches, numbness tingling, neck pain back pain, hip pains.? Denies any loss of consciousness.? Patient denied any chest pain or palpitations.? Patient denies any fever chills cough, GI symptoms.? Review of all other systems is negative except mentioned above ER course: Per ER team patient on initial presentation noted to be erratic, given Narcan.? Improvement in mental status.? Patient currently oriented x3.? Patient had CT head, CT neck, CT chest and CT abdomen pelvis done which showed no acute findings arm.? On labs noted to have hyperkalemia -no EKG changes; given insulin, dextrose, Lokelma.? Patient also received 2 L of IV fluids.? On blood chemistry patient noted to have renal insufficiency with creatinine of 17 compared to baseline of 1.? Serum bicarb of 20.? Nephrology was notified.? Admitted to the hospital for further management. hospital course: Patient was admitted for metabolic encephalopathy due to acute kidney injury with uremia complicated by metabolic acidosis. He was given IV hydration with sodium bicarbonate and renal function significantly improved with good urine output and creatinine decreasing from 17.8 to 1.98 on discharge. Patient's hypertension was noted to be uncontrolled. His lisinopril had been held for acute kidney injury, his amlodipine was increased from 5 mg to 10 mg. He was continue on clonidine and metoprolol. He was also started on hydralazine 25 mg t.i.d.. Patient also had hyperkalemia on admission which improved with low common holding AMNA-inhibitor. For his diabetes he was continue on insulin. For his opiate dependence he was continued on Suboxone. For his phimosis he will follow up with Urology. Patient is doing much better will be discharged home. He should follow up with Nephrology. Time Spent with Patient Time attestation: Total time spent providing and/or coordinating discharge services: Discharge coordination time: Greater than 30 minutes Quality: Safe Use of Opioids Does Pt have an Active Cancer Diagnosis on the Problem List?: No Quality: Stroke Does the patient have a stroke diagnosis?: No Physical Exam Vital Signs: Vital Signs: Last Vital Signs Temp 98.3 F 10/29/21 07:27 Pulse 74 10/29/21 07:27 Resp 20 10/29/21 07:27 BP 178/60 H 10/29/21 07:27 Pulse Ox 98 10/29/21 07:27 O2 Del Method 10/29/21 07:27 BMI result Body Mass Index 24.7 General: AO X 3, no acute distress Resp: CTA bilateral, no accessory muscles used CVS: S1,S2,RRR GI: soft, non tender, non distended Neuro: motor grossly intact, alert Psych: appropriate affect, appropriate insight DS: Data Data Completed and Pending Completed studies during hospitalization [Text1]: Procedures Detoxification Services for Substance Abuse Treatment (07/04/20) Labs on day of discharge: Laboratory Results - last 24 hr 10/28/21 10/28/21 10/28/21 13:34 16:43 19:27 WBC RBC Hgb Hct MCV MCH MCHC RDW Plt Count MPV Absolute Nucleated RBC Nucleated RBC % (auto) Sodium Potassium Chloride Carbon Dioxide Anion Gap BUN Creatinine Estim Creat Clear Calc Estimated GFR POC Glucose 230 H 194 H 198 H Fasting Glucose Estimat Average Glucose Hemoglobin A1c % Calcium 10/29/21 10/29/21 10/29/21 05:40 05:40 05:40 WBC 12.9 H RBC 4.09 L Hgb 11.1 L Hct 34.6 L MCV 84.6 MCH 27.1 MCHC 32.1 RDW 12.9 Plt Count 195 MPV 10.3 Absolute Nucleated RBC 0.000 Nucleated RBC % (auto) 0.0 Sodium 144 Potassium 4.6 Chloride 105 Carbon Dioxide 28 Anion Gap 16 BUN 46 H Creatinine 1.98 H Estim Creat Clear Calc 41.9 Estimated GFR 35 POC Glucose Fasting Glucose 215 H Estimat Average Glucose 226 Hemoglobin A1c % 9.5 Calcium 8.1 L 10/29/21 07:13 WBC RBC Hgb Hct MCV MCH MCHC RDW Plt Count MPV Absolute Nucleated RBC Nucleated RBC % (auto) Sodium Potassium Chloride Carbon Dioxide Anion Gap BUN Creatinine Estim Creat Clear Calc Estimated GFR POC Glucose 182 H Fasting Glucose Estimat Average Glucose Hemoglobin A1c % Calcium Discharge Plan Discharge Patient Disposition: Home, Self-Care Discharge Diagnosis: blayne Referrals: Faustino Lopez MD [Physician] - 1 Week Magdalena Jonas NP [Primary Care Provider] - 1 Week Discharge Medications: New hydralazine 25 mg Tablet 25 mg PO TID Qty: 90 0RF Protocol: Hold for SBP< HOLD for SBP < : 90 amlodipine 10 mg Tablet 10 mg PO DAILY Qty: 30 0RF Protocol: Hold for SBP< HOLD for SBP < : 90 Continued atorvastatin 80 mg Tablet 80 mg PO BEDTIME Qty: 30 0RF metoprolol tartrate 100 mg tablet 100 mg PO BID Qty: 60 0RF omeprazole magnesium [Prilosec OTC] 20 mg tablet,delayed release (DR/EC) 20 mg PO DAILY Qty: 30 0RF acetaminophen 325 mg tablet 2 tab PO Q6H PRN (Reason: pain) fluticasone propion-salmeterol [Advair Diskus] 250-50 mcg/dose blister with device 1 puff PO 2XD aspirin 81 mg tablet,delayed release (DR/EC) 1 tab PO QAM clonidine HCl 0.2 mg tablet 1 tab PO 1XD zolpidem 10 mg tablet 1 tab PO BEDTIME loratadine 10 mg tablet 1 tab PO DAILY PRN (Reason: Allergy Symptoms) buprenorphine-naloxone [Suboxone] 8-2 mg film 2.5 strip sublingual DAILY Tresiba FlexTouch U-100 100 unit/mL (3 mL) insulin pen 30 unit subcut DAILY Rybelsus 14 mg tablet 1 tab PO QAM Discontinued amlodipine 5 mg tablet 1 tab PO QAM lisinopril 40 mg tablet 1 tab PO QAM Discharge Orders: Discharge Order (Routine); Ordered 10/29/21 Ordered By: Drew Pearce Diet: Diabetic diet Activity on Discharge: As tolerated Stand Alone Forms: Patient Portal Discharge page Care Plan Goals: prevent further blayne, continue renal recovery Health Concerns: blayne, htn Plan of Treatment: follow up nephrology, increase amlodipine to 10mg daily, stop lisinopril, start hydralazine, avoid illicit drugs Assessment: see above
[2021-10-29 11:14] LABS: Glucose, Whole Blood 248 mg/dL (60-115)
--- NOTE | 2021-10-29 11:25 | MHC.CM.PN ---
with interpertor met with pt who reports being on suboxone he has identified no other servceis he lives with mother care team to see pt prior to dc pt has own transport home
[2021-10-29 15:58] LABS: Glucose, Whole Blood 228 mg/dL (60-115)
== END 2021-10-29 17:24 | disposition home or self-care (01) | DRG 917 ==
LOC: HO.ED 18:10 → HO.EDOVER 22:22 → HO.IMC 10-28 19:40
PROVIDERS: Physician Assistant; Urology; Admitting Provider Hospitalist; Emergency Provider Student in an Organized Health Care Education/Training Program; PCP Nurse Practitioner Primary Care; Visit Provider Internal Medicine
DX: T40.2X1A Poisoning by other opioids, accidental (unintentional), initial encounter (principal); G93.41 Metabolic encephalopathy; N17.0 Acute kidney failure with tubular necrosis; E87.2 Acidosis; F11.20 Opioid dependence, uncomplicated; M62.82 Rhabdomyolysis; N47.1 Phimosis; G47.33 Obstructive sleep apnea (adult) (pediatric); I10 Essential (primary) hypertension; E11.9 Type 2 diabetes mellitus without complications; E87.5 Hyperkalemia; Z20.822 Contact with and (suspected) exposure to COVID-19; Z79.51 Long term (current) use of inhaled steroids; Z79.899 Other long term (current) drug therapy
CPT/HCPCS: 36415; 70450; 71045; 71250; 72125; 74176; 80048; 80053; 80307; 81001; 82077; 82550; 82947; 83036; 83880; 84300; 84484; 85025; 85027; 87635; 93005; 94640; 96361; 96374; 96375; 99282; 99284; 99285; C1758; J0610; J1170